=== PATIENT | female | born 1960 | race Caucasian/White ===

== ENCOUNTER → 2021-02-02 | Outpatient (CLI) | payer OTHER, SELFPAY ==
[2021-02-02 22:23] LABS: ALB/GLOB Ratio 1.1 RATIO (0.9-2.4); AST(SGOT) 30 U/L (15-37); Alanine Aminotransfer ALT/SGPT 35 U/L (13-56); Albumin, Serum 4.1 g/dL (3.2-5.0); Alkaline Phosphatase 39 U/L (45-117); Anion Gap 8 (5-15); BUN 26 mg/dL (7-18); Calcium,Total 9.3 mg/dL (8.5-10.1); Chloride 101 mmol/L (98-107); Cholesterol 230 mg/dL (200); Creatinine, Serum 1.04 mg/dL (0.55-1.02); EST Glomerular Filtration Rate 57 mL/min (>60); Est Glom Filt Rate - Afr Amer 69 mL/min (>60); Globulin 3.7 g/dL (2.2-4.2); Glucose 97 mg/dL (74-106); High Density Lipoprotein 107 mg/dL; Protein, Total 7.8 g/dL (6.4-8.2); Sodium Level 136 mmol/L (136-145); Triglycerides 149 mg/dL; Very Low Density Lipoprotein 30 mg/dL (5-40)
[2021-02-02 22:55] LABS: Absolute Lymphocyte Count 2.03 X10^3/uL (0.83-4.51); Absolute Neutrophil Count 3.5 X10^3/uL (2.0-7.7); Basophil# 0.03 X10^3/uL; Basophil% 0.5 % (0-1); Eosinophil# 0.11 X10^3/uL; Eosinophils% 1.7 % (0-5); Hematocrit 31.8 % (37-47); Hemoglobin 10.7 g/dL (12.0-15.0); Lymphocyte # 2.03 X10^3/ul (0.83-4.51); Lymphocyte % 31.6 % (19-41); Mean Corp Hgb Conc 33.6 g/dL (32-36); Mean Corpuscular Volume 103.9 fL (81-99); Mean Platelet Vol. 9.8 fl (6.2-12.0); Monocyte# 0.75 X10^3/uL; Monocyte% 11.7 % (0-10); NRBC Flagged by Analyzer 0 % (0-5); Neutrophil # 3.49 X10^3/uL (2.7-7.7); Neutrophil % 54.2 % (47-70); Platelet Count 234 K/mm3 (150-450); RBC Distribution Width CV 12.2 % (11.6-14.6); RBC Distribution Width SD 46.1 fl (35.1-43.9); Red Blood Count 3.06 M/mm3 (4.2-5.4); White Blood Count 6.4 K/mm3 (4.4-11.0)
== END | disposition home or self-care (01) ==
PROVIDERS: PCP Nurse Practitioner; Visit Provider Nurse Practitioner
DX: I10 Essential (primary) hypertension (principal)
CPT/HCPCS: 80053; 80061; 85025

== ENCOUNTER → 2022-02-01 | Outpatient (CLI) | payer BC, SELFPAY | END | disposition home or self-care (01) | PROVIDERS: PCP Nurse Practitioner; Visit Provider Nurse Practitioner | DX: I10 Essential (primary) hypertension (principal); E03.9 Hypothyroidism, unspecified ==

== ENCOUNTER → 2025-02-20 | Outpatient (CLI) | payer BC, SELFPAY ==
--- OUTSIDE RECORDS SUMMARY | 2025-02-20 21:51 | XMS RPT_ITS | CCD ---
Author Organization [facility] Care Team Providers Care Scout Leaser Name Role Phone Cliff, Yolanda Unavailable Unavailable Cliff, Yolanda Unavailable Unavailable Cliff, Yolanda Unavailable Unavailable Cliff, Yolanda Primary Care Provider Tee Aguiara L Primary Care Provider [phone] Adolph Dawkins Primary Care Provider [phone] AGUIAR, ALEKSANDRA L Primary Care Unavailable LUCIANO TORRES Attending Unavailable AGUIAR, ALKESANDRA L Primary Care Unavailable SHENBERGERSAMUEL L Attending Unavailable AGUIAR, ALEKSANDRA L Primary Care Unavailable SHENBERGER, SAMUEL L Attending Unavailable AGUIAR, ALEKSANDRA L Primary Care Unavailable LUCIANO TORRES Attending Unavailable WISAMBERGER, SAMUEL L Attending Unavailable AGUIAR, ALEKSANDRA L Primary Care Unavailable AGUIAR, ALEKSANDRA L Primary Care Unavailable LUCIANO TORRES Attending Unavailable AGUIAR, ALEKSANDRA L Primary Care Unavailable LUCIANO TORRES Attending Unavailable AGUIAR, ALEKSANDRA L Primary Care Unavailable LUCIANO TORRES Attending Unavailable LUCIANO TORRES Attending Unavailable AGUIAR, ALEKSANDRA L Primary Care Unavailable AGUIAR, ALEKSANDRA L Primary Care Unavailable LUCIANO TORRES Attending Unavailable AGUIAR, ALEKSANDRA L Primary Care Unavailable LUCIANO TORRES Attending Unavailable AGUIAR, ALEKSANDRA L Primary Care Unavailable LUCIANO TORRES Attending Unavailable LUCIANO TORRES Referring Unavailable LUCIANO TORRES Admitting Unavailable AGUIAR, ALEKSANDRA L Primary Care Unavailable Aguiar, Aleksandra L Primary Care Provider [phone] Aguair, Aleksandra Primary Care Provider Aguiar, Aleksandra Attending Unavailable Aguiar, Aleksandra Primary Care Unavailable Aguiar, Aleksandra Primary Care Provider [phone] AGUIAR, ALEKSANDRA L Primary Care Unavailable BRI BOLAÑOS Attending Unavailable Cosme CUTTING TORCH OPERATOR-Aleksandra SPAIN Primary Care Provide r Aleksandra Aguiar Primary Care Provider ALEKSANDRA AGUIAR Attending Unavailable ALEKSANDRA AGUIAR Referring Unavailable ALEKSANDRA AGUIAR Primary Care Unavailable Aleksandra Aguiar Primary Care Provider [phone] Allergies Allergy Classification Reported Allergen(s) Allergy Type Date of Onset Reaction(s) Facility Bee/Wasp/Ant Venom (1 source) bee venom Substance Allergy 08-09-2015 [facility] (2 sources) bee venom Propensity to adverse reactions to drug 08-09-2015 [facility] [place] Medications Current Medications Medication Drug Class(es) Dates Sig (Normalized) Sig (Original) acetaminophen 325 mg / HYDROcodone bitartrate 5 mg oral tablet (5 sources) Opioid Agonist Start: 01-07-2020 HYDROcodone-aceta minophen (NORCO) 5-325 mg per tablet amoxicillin 875 mg / clavulanate 125 mg oral tablet (2 sources) Penicillin-class Antibacterial Start: 09-15-2023 End: 09-25-2023 take 1 tablet by mouth twice daily amoxicillin-pot clavulanate (Augmentin) 875-125 mg tablet Indications: Acute otitis media, left Take 1 tablet by mouth 2 times a day for 10 days. Take with a meal. 20 tablet 09/15/2023 09/25/2023 Active Start: 11-25-2018 End: 12-20-2018 take 1 tablet by mouth twice daily Amoxicillin-Pot Clavulanate Discontinued 1 TABLET PO TWICE A DAY November 25, 2018 12:00am December 20, 2018 5:31pm aspirin 81 mg oral tablet (3 sources) Platelet Aggregation Inhibitor, Nonsteroidal Anti-inflammatory Drug take 1 tablet by mouth once daily aspirin 81 MG tablet Take 81 mg by mouth daily 0 Active ferrous sulfate 325 mg oral tablet (2 sources) Start: 020 take 1 tablet by mouth once daily Ferrous Sulfate (Ferosul) 325 mg (65 mg iron) tablet Active 325 MG PO DAILY December 24, 2019 12:00am levothyroxine sodium 0.112 mg oral tablet (20 sources) l-Thyroxine Start: 024 take 1 tablet by mouth once daily levothyroxine (Synthroid, Levoxyl) 112 mcg tablet Take 1 tablet (112 mcg) by mouth once daily. 06/26/2023 Active Start: 02-08-2007 End: 02-03-2021 take 1 tablet by mouth once daily Levothyroxine (Synthroid) 112 mcg tablet Discontinued 112 MCG PO DAILY January 23, 2020 3:15pm February 03, 2021 4:56pm Comment on above: Take one(1) tablet d aily. magnesium amino acid chelate 133 mg oral tablet (1 source) take 1 tablet by mouth twice daily magnesium, amino acid chelate, 133 mg tablet Take 1 tablet (133 mg) by mouth 2 times a day. Active Multiple Vitamin (MULTIVITAMINS PO) (3 sources) Multiple Vitamin (MULTIVITAMINS PO) Take by mouth 0 Active olmesartan medoxomil 20 mg oral tablet (12 sources) Angiotensin 2 Receptor Willa Start: 9 End: 2 take 20 mg by mouth once daily Olmesartan Active 20 MG PO DAILY February 01, 2022 6:44pm Vitamin B Complex (B Complex-Vitamin B12) tablet (1 source) Start: 0 take 1 tablet by mouth once daily Vitamin B Complex (B Complex-Vitamin B12) tablet Active 1 TABLET PO DAILY December 24, 2019 12:00am vitamin b12 1 mg oral tablet (1 source) Vitamin B12 take 1 tablet by mouth once daily cyanocobalamin (Vitamin B-12) 1,000 mcg tablet Take 1 tablet (1,000 mcg) by mouth once daily. Active Completed/Discontinued Medications Medication Drug Class(es) Dates Sig (Normalized) Sig (Original) [id number] actuat albuterol 0.09 mg/actuat metered dose inhaler (1 source) beta2-Adrenergic Agonist Start: 07-08-2018 End: 11-25-2018 take 1 puff(s) by inhalation every four hours Albuterol Sulfate (Proair Hfa) 90 mcg/actuation HFA aerosol inhaler Discontinued 2 PUFF INHALATION Q4H July 08, 2018 12:00am November 25, 2018 5:40pm anastrozole 1 mg oral tablet (14 sources) Aromatase Inhibitor Start: 02-08-2007 anastrozole (ARIMIDEX) 1 mg ORAL Tab azithromycin 250 mg oral tablet (1 source) Macrolide Antimicrobial Start: 07-08-2018 End: 07-13-2018 Azithromycin Discontinued 250 MG PO daily 6 5 July 08, 2018 12:00am July 13, 2018 12:11am 2 po qd for 1 day then 1 po qd for 4 days with food or after eating candesartan cilexetil 16 mg oral tablet (2 sources) Angiotensin 2 Receptor Willa Start: 07-08-2018 End: 09-05-2018 take 16 mg by mouth once daily Candesartan Discontinued 16 MG PO DAILY August 14, 2018 4:45pm September 05, 2018 12:36pm citalopram 20 mg oral tablet (14 sources) Serotonin Reuptake Inhibitor Start: 12-31-2017 End: 02-01-2022 take 20 mg by mouth once daily Citalopram Discontinued 20 MG PO DAILY February 02, 2021 3:58pm February 01, 2022 6:42pm escitalopram 10 mg oral tablet (14 sources) Serotonin Reuptake Inhibitor Start: 02-08-2007 escitalopram (LEXAPRO) 10 mg ORAL Tab folic acid 1 mg oral tablet (14 sources) Start: 02-08-2007 take 1 tablet by mouth once daily folic acid 1 mg ORAL Tab Take one (1) tablet daily. 0 02/08/2007 Active Comment on above: Take one (1) tablet daily. losartan potassium 100 mg oral tablet (4 sources) Angiotensin 2 Receptor Willa Start: 12-31-2017 End: 08-14-2018 take 100 mg by mouth once daily Losartan Discontinued 100 MG PO DAILY July 08, 2018 12:00am August 14, 2018 4:44pm multivitamin ORAL Tab (14 sources) Start: 02-08-2007 take 1 tablet by mouth once daily multivitamin ORAL Tab Take one(1) tablet daily. 0 02/08/2007 Active Comment on above: Take one(1) tablet d aily. omega-3 fatty acids(FISH OIL 500 MG CAP) (14 sources) Start: 02-11-2009 omega-3 fatty acids(FISH OIL 500 MG CAP) Take one(1) capsule daily. 0 02/11/2009 Active Comment on above: Take one(1) capsule daily. predniSONE 10 mg oral tablet (2 sources) Start: 11-25-2018 End: 11-30-2018 Prednisone Discontinued 20 MG PO TWICE A DAY 30 November 25, 2018 12:00am November 30, 2018 12:08am 2 po bid 4D,1 po bid for 4 D, 1 po qd for 4D 1/2 po qd for2 D Start: 07-08-2018 End: 07-12-2018 Prednisone Discontinued 20 M G PO TWICE A DAY 30 4 July 08, 2018 12:00am July 12, 2018 12:10am 2 po bid 4D,1 po bid for 4 D, 1 po qd for 4D 1/2 po qd for2 D Problems Active Problems Problem Classification Problem Date Documented Da te Episodic/Chronic Anxiety disorders (1 source) Anxiety; Translations: [Anxiety disorder, unspecified] Chronic Chronic obstructive pulmonary disease and bronchiectasis (1 source) Bronchitis; Translations: [Bronchitis, not specified as acute or chronic] Episodic Deficiency and other anemia (1 source) Macrocytic anemia; Translations: [Nutritional anemia, unspecified] Episodic Deficiency and other anemia (1 source) Anemia; Translations: [Anemia, unspecified] Episodic Essential hypertension (18 sources) Hypertensive disorder; Translations: [Essential (primary) hypertension] Onset: 12-28-2011 12-28-2011 Chronic Fever of unknown origin (1 source) Fever; Translations: [Fever, unspecified] Episodic Influenza (1 source) Influenza due to Influenza A virus; Translations: [Influenza due to other identified influenza virus with other respiratory manifestations] Episodic Malignant neoplasm without specification of site (16 sources) Malignant neoplastic disease; Translations: [Malignant (primary) neoplasm, unspecified] Onset: 04-09-2004 07-02-2017 Chronic Menopausal disorders (1 source) Menopausal flushing; Translations: [Menopausal and female climacteric states] Chronic Nutritional deficiencies (1 source) Undernutrition; Translations: [Unspecified protein-calorie malnutrition] Chronic Other connective tissue disease (4 sources) Tear of left rotator cuff; Translations: [Tear of left rotator cuff, unspecified tear extent, unspecified whether traumatic] Other ear and sense organ disorders (2 sources) Impacted cerumen, unspecified ear; Translations: [Impacted cerumen, unspecified ear] Onset: 09-15-2023 Episodic Other ear and sense organ disorders (1 source) Impacted cerumen; Translations: [Impacted cerumen, unspecified ear] 09-15-2023 Episodic Other lower respiratory disease (1 source) Wheezing; Translations: [Wheezing] Episodic Other non-traumatic joint disorders (20 sources) Stiffness of left shoulder; Translations: [Shoulder stiffness, left] Onset: 02-18-2020 02-18-2020 Other screening for suspected conditions (not mental disorders or infectious disease) (13 sources) Patient encounter status; Translations: [Encounter for screening mammogram for malignant neoplasm of breast] Onset: 12-31-2024 10-20-2022 Episodic Otitis media and related conditions (3 sources) Otitis media, unspecified, left ear; Translations: [Acute left otitis media] Onset: 09-15-2023 Episodic Paralysis (20 sources) Weakness of left arm; Translations: [Weakness of left arm] Onset: 02-18-2020 02-18-2020 Poisoning by nonmedicinal substances (1 source) Bee sting; Translations: [Toxic effect of venom of bees, accidental (unintentional), initial encounter] Episodic Residual codes; unclassified (3 sources) History of arthroscopic procedure on shoulder; Translations: [S/P arthroscopy of left shoulder] Episodic Skin and subcutaneous tissue infections (1 source) Cellulitis; Translations: [Cellulitis, unspecified] Episodic Thyroid disorders (17 sources) Hypothyroidism; Translations: [Hypothyroidism, unspecified] Onset: 12-28-2011 01-07-2015 Chronic Past or Other Problems Problem Classification Problem Date Documented Da te Episodic/Chronic Allergic reactions (14 sources) Solar degeneration; Translations: [Sun-damaged skin] Onset: 03-18-2009 03-24-2009 Episodic Other and unspecified benign neoplasm (14 sources) Melanocytic nevus of trunk; Translations: [Melanocytic nevus of trunk] Onset: 03-18-2009 03-18-2009 Episodic Other non-epithelial cancer of skin (14 sources) History of malignant neoplasm of skin; Translations: [Personal history of other malignant neoplasm of skin] Onset: 03-18-2009 03-18-2009 Episodic Other skin disorders (14 sources) Lentiginosis; Translations: [Lentigo] Onset: 03-18-2009 03-18-2009 Episodic Other skin disorders (14 sources) Other seborrheic keratosis; Translations: [Other seborrheic keratosis] Onset: 03-18-2009 03-18-2009 Episodic Other skin disorders (14 sources) Scar conditions and fibrosis of skin; Translations: [Scar condition and fibrosis of skin] Onset: 03-18-2009 03-18-2009 Episodic Other skin disorders (14 sources) Actinic keratosis; Translations: [Actinic keratosis] Onset: 03-18-2009 03-18-2009 Episodic Residual codes; unclassified (16 sources) Flushing; Translations: [Flushing] Onset: 12-31-2017 12-31-2017 Episodic Results Test Name Value Interpretation Reference Range Facility DBT Breast - bilateral scree surinder 12-31-2024 No mammographic evid ence of malignancy. ASSESSMENT: Category 2 Benign RECOMMENDATION: Routine screening mammogram in 1 year. Bilateral CANCER RISK ASSESSMENT: No lifetime breast cancer risk score was calculated due to the patient having had a previous breast cancer diagnosis per Tyrer-Cuzick version 8 risk model guidelines. Is the patient at elevated risk based on the HBOC criteria? No (Hereditary Breast and Ovarian Cancer) - If Yes, consider genetic counseling and testing with high risk follow up Is the patient at elevated risk based on the Freedman Syndrome criteria? No - If Yes, consider genetic counseling and testing with high risk follow up. Report Dictated on Electronically Signed By: Berna Henson DO Electronically Signed Date/Time: 12/31/2024 2:04 PM EDT [facility] 1960 [id number] Exam Date/Time: 12/31/2024 11:12 Procedure: BI MAMMOGRAM SCREENING TOMOSYNTHESIS BILATERAL Ordering Provider: AGUIAR DORA Reason For Exam: This exam was performed at [facility] at [address] [address] PATIENT CANCER HISTORY: Self Breast Cancer FAMILY CANCER HISTORY: No Family History of Cancer TECHNIQUE: 2D Bilateral CC and MLO 3D Bilateral CC and MLO Images reviewed with CAD Markings on images: BB's = Nipples, skin lesions Open atka = Palpable Line = Scar COMPARISON: 12/24/2023, 10/20/2022, 10/19/2021, 10/06/2020, 09/24/2019, 08/06/2018, 07/03/2017 TISSUE DENSITY: BIRADS B - There are scattered areas of fibroglandular density. FINDINGS: No suspicious masses, architectural distortions or suspiciously clustered microcalcifications. No skin thickening or nipple retraction. Right breast postoperative changes and left breast biopsy clips. No significant change from prior studies. [facility] Berna Henson DO - 12/31/2024 Patient Name: DANAY THOMPSON : 1960 Exam Date/Time: 12/31/2024 11:12 Procedure: BI MAMMOGRAM SCREENING TOMOSYNTHESIS BILATERAL Ordering Provider: AGUIAR DORA Reason For Exam: This exam was performed at [facility] at [place] [address] [facility] [address] PATIENT CANCER HISTORY: Self Breast Cancer FAMILY CANCER HISTORY: No Family History of Cancer TECHNIQUE: 2D Bilateral CC and MLO 3D Bilateral CC and MLO Images reviewed with CAD Markings on images: BB's = Nipples, skin lesions Open atka = Palpable Line = Scar COMPARISON: 12/24/2023, 10/20/2022, 10/19/2021, 10/06/2020, 09/24/2019, 08/06/2018, 07/03/2017 TISSUE DENSITY: BIRADS B - There are scattered areas of fibroglandular density. FINDINGS: No suspicious masses, architectural distortions or suspiciously clustered microcalcifications. No skin thickening or nipple retraction. Right breast postoperative changes and left breast biopsy clips. No significant change from prior studies. IMPRESSION: No mammographic evidence of malignancy. ASSESSMENT: Category 2 Benign RECOMMENDATION: Routine screening mammogram in 1 year. Bilateral CANCER RISK ASSESSMENT: No lifetime breast cancer risk score was calculated due to the patient having had a previous breast cancer diagnosis per Tyrer-Cuzick version 8 risk model guidelines. Is the patient at elevated risk based on the HBOC criteria? No (Hereditary Breast and Ovarian Cancer) - If Yes, consider genetic counseling and testing with high risk follow up Is the patient at elevated risk based on the Freedman Syndrome criteria? No - If Yes, consider genetic counseling and testing with high risk follow up. Report Dictated on Electronically Signed By: Berna Henson DO Electronically Signed Date/Time: 12/31/2024 2:04 PM EDT [facility] Radiology Study observation (narrative) [facility] DBT Breast - bilateral scree ningOrdered By: Berna Henson on 12-31-2024 [facility] Work Phone: CBC W Auto Differential pane l (Bld)on 02-28-2024 Basophils (Bld) [#/Vol] 52 10*3/uL [facility] Basophils/100 WBC (Bld) 0.8 % [facility] Eosinophils (Bld) [#/Vol] 91 10*3/uL [facility] Eosinophils/100 WBC (Bld) 1.4 % [facility] Erythrocyte distribution width (RBC) [Ratio] 12.2 % 11.0 - 15.0 % [facility] Hematocrit (Bld) [Volume fraction] 42.1 % 35.0 - 45.0 % [facility] Hemoglobin (Bld) [Mass/Vol] 14 g/dL 11.7 - 15.5 g/dL [facility] Interpretation and review of laboratory results Abnormal [facility] Lymphocytes (Bld) [#/Vol] 2152 10*3/uL [facility] Lymphocytes/100 WBC (Bld) 33.1 % [facility] MCH (RBC) [Entitic mass] 33.6 pg High 27.0 - 33.0 pg [facility] MCHC (RBC) [Mass/Vol] 33.3 g/dL 32.0 - 36.0 g/dL [facility] Comment on above: Specimen was prewarm ed to 37 degrees to obtain results. Cold agglutinin/cryoglobulin suspected. For adults, a slight decrease in the calculated MCHC value (in the range of 30 to 32 g/dL) is most likely not clinically significant; however, it should be interpreted with caution in correlation with other red cell parameters and the patient's clinical condition. MCV (RBC) [Entitic vol] 101 fL High 80.0 - 100.0 fL [facility] Monocytes (Bld) [#/Vol] 624 10*3/uL [facility] Monocytes/100 WBC (Bld) 9.6 % [facility] Neutrophils (Bld) [#/Vol] 3582 10*3/uL [facility] Neutrophils/100 WBC (Bld) 55.1 % [facility] Platelet mean volume (Bld) [Entitic vol] 9.2 fL 7.5 - 12.5 fL [facility] Platelets (Bld) [#/Vol] 202 10*3/uL [facility] RBC (Bld) [#/Vol] 4.17 10*6/uL [facility] WBC (Bld) [#/Vol] 6.5 10*3/uL [facility] TSHon 01-11-2024 TSH Qn 0.05 m[IU]/L Low [facility] Comment on above: Your request to have a duplicate copy faxed has been acknowledged. Queued to: [id number] TSH Qnon 01-11-2024 Interpretation and review of laboratory results Abnormal [facility] DBT Breast - bilateral scree ningon 12-24-2023 No mammographic evid ence of malignancy. ASSESSMENT: Category 2 Benign RECOMMENDATION: Routine screening mammogram in 1 year. Bilateral CANCER RISK ASSESSMENT: No lifetime breast cancer risk score was calculated due to the patient having had a previous breast cancer diagnosis. Is the patient at elevated risk based on the HBOC criteria? No (Hereditary Breast and Ovarian Cancer) - If Yes, consider genetic counseling and testing with high risk follow up Is the patient at elevated risk based on the Freedman Syndrome criteria? No - If Yes, consider genetic counseling and testing with high risk follow up. Report Dictated on Electronically Signed By: Kassy Parsons MD Electronically Signed Date/Time: 12/24/2023 2:18 PM [facility] Name: [facility]ABA [facility] 1960 [id number] Exam Date/Time: 12/24/2023 13:41 Procedure: BI MAMMOGRAM SCREENING TOMOSYNTHESIS BILATERAL Ordering Provider: AGUIAR DORA Reason For Exam: PATIENT CANCER HISTORY: Self Breast Cancer FAMILY CANCER HISTORY: No Family History of Cancer Image views: 2D Bilateral CC and MLO views were acquired. 3D Bilateral CC and MLO views were acquired. Images were reviewed with CAD. Markings on images: BB's = Nipples; skin lesions Open atka = Palpable Line = Scar COMPARISON: 10/20/2022 and 10/19/2021 TISSUE DENSITY: BIRADS B - There are scattered fibroglandular densities. FINDINGS: There are post surgical changes deep to a scar marker the right breast. No suspicious masses, architectural distortions or suspiciously clustered microcalcifications are identified. There is no evidence of skin thickening or nipple retraction. There are no significant changes when compared with prior studies. [facility] Kassy Parsons MD - 12/24/2023 Patient Name: DANA[facility] THOMPSON : 1960 [id number] Exam Date/Time: 12/24/2023 13:41 Procedure: BI MAMMOGRAM SCREENING TOMOSYNTHESIS BILATERAL Ordering Provider: AGUIAR DORA Reason For Exam: PATIENT CANCER HISTORY: Self Breast Cancer FAMILY CANCER HISTORY: No Family History of Cancer Image views: 2D Bilateral CC and MLO views were acquired. 3D Bilateral CC and MLO views were acquired. Images were reviewed with CAD. Markings on images: BB's = Nipples; skin lesions Open atka = Palpable Line = Scar COMPARISON: 10/20/2022 and 10/19/2021 TISSUE DENSITY: BIRADS B - There are scattered fibroglandular densities. FINDINGS: There are post surgical changes deep to a scar marker the right breast. No suspicious masses, architectural distortions or suspiciously clustered microcalcifications are identified. There is no evidence of skin thickening or nipple retraction. There are no significant changes when compared with prior studies. IMPRESSION: No mammographic evidence of malignancy. ASSESSMENT: Category 2 Benign RECOMMENDATION: Routine screening mammogram in 1 year. Bilateral CANCER RISK ASSESSMENT: No lifetime breast cancer risk score was calculated due to the patient having had a previous breast cancer diagnosis. Is the patient at elevated risk based on the HBOC criteria? No (Hereditary Breast and Ovarian Cancer) - If Yes, consider genetic counseling and testing with high risk follow up Is the patient at elevated risk based on the Freedman Syndrome criteria? No - If Yes, consider genetic counseling and testing with high risk follow up. Report Dictated on Electronically Signed By: Kassy Parsons MD Electronically Signed Date/Time: 12/24/2023 2:18 PM EDT [facility] Radiology Study observation (narrative) [facility] DBT Breast - bilateral scree ningOrdered By: Kassy Parsons on 12-24-2023 [facility] Phone: Ear Cerumen Removalon 2023 MUKUL Kwong CNP 09/17/2023 2:08 PM Ear Cerumen Removal Performed by: MILDRED Kwong Authorized by: MILDRED Kwong [facility] Work Phone: [facility] Work Phone: [facility] for tanner hnical call backon 11-02-2022 This is a technical repeat exam. The result from the previous exam will be addended with the full interpretation and will be distributed appropriately. IMAGING DBT Breast - bilateral abad Hillrdered By: Haily Devlin on 10-20-2022 Interpretation and review of laboratory results Abnormal [facility] Phone: [facility] Phone: DBT Breast - bilateral abad hillmartha 10-20-2022 Technical recall ASSESSMENT: Category 0 Incomplete: need additional imaging evaluation RECOMMENDATION: Technical Recall Bilateral Repeat right CC for posterior lateral tissue. Report Dictated on Electronically Signed By: Haily Devlin MD Electronically Signed Date/Time: 10/20/2022 3:20 PM [facility] Patient Name: [facility]Y KABA : 1960 [id number] Exam Date/Time: 10/20/2022 13:44 Procedure: BI MAMMOGRAM SCREENING TOMOSYNTHESIS BILATERAL Ordering Provider: AGUIAR DORA Reason For Exam: Screening mammogram Image views: 2D Bilateral CC and MLO views were acquired. 3D Bilateral CC and MLO views were acquired. Images were reviewed with CAD. Markings on images: BB's = Nipples; skin lesions Open atka = Palpable Line = Scar COMPARISON: 10/06/2020, 10/19/2021 TISSUE DENSITY: BIRADS B - There are scattered fibroglandular densities. FINDINGS: This is an incomplete interpretation of the screening mammogram performed on this patient. The study cannot be interpreted for technical reasons at this time. The patient will be requested to return for repeat imaging at no additional charge. [facility] Haily Devlin MD - 10/20/2022 Patient Name: DANAY THOMPSON : 1960 [id number] Exam Date/Time: 10/20/2022 13:44 Procedure: BI MAMMOGRAM SCREENING TOMOSYNTHESIS BILATERAL Ordering Provider: AGUIAR DORA Reason For Exam: Screening mammogram Image views: 2D Bilateral CC and MLO views were acquired. 3D Bilateral CC and MLO views were acquired. Images were reviewed with CAD. Markings on images: BB's = Nipples; skin lesions Open atka = Palpable Line = Scar COMPARISON: 10/06/2020, 10/19/2021 TISSUE DENSITY: BIRADS B - There are scattered fibroglandular densities. FINDINGS: This is an incomplete interpretation of the screening mammogram performed on this patient. The study cannot be interpreted for technical reasons at this time. The patient will be requested to return for repeat imaging at no additional charge. IMPRESSION: Technical recall ASSESSMENT: Category 0 Incomplete: need additional imaging evaluation RECOMMENDATION: Technical Recall Bilateral Repeat right CC for posterior lateral tissue. Report Dictated on Electronically Signed By: Haily Devlin MD Electronically Signed Date/Time: 10/20/2022 3:20 PM EDT [facility] Addendum by Erma Dasilva MD on 11/02/2022 1:00 PM EDT [facility] 1960 [id number] Exam Date/Time: 10/20/2022 13:44 Procedure: BI MAMMOGRAM SCREENING TOMOSYNTHESIS BILATERAL Ordering Provider: AGUIAR DORA Reason For Exam: Screening mammogram --------ADDENDUM #1 -------- ADDENDUM: This addendum is being provided to add interpretation of the original screening mammogram including the recommended repeat imaging. Image views: 2D Bilateral CC and MLO views were acquired. 3D Bilateral CC and MLO views were acquired. Images were reviewed with CAD. Markings on images: BB's = Nipples; skin lesions Open atka = Palpable Line = Scar COMPARISON: 2021; 2020; 2019 TISSUE DENSITY: BIRADS B - There are scattered fibroglandular densities. FINDINGS: There are post surgical changes deep to a scar marker the right breast. No suspicious masses, architectural distortions or suspiciously clustered microcalcifications are identified. There are no significant changes when compared with prior studies. IMPRESSION: No mammographic evidence of malignancy. ASSESSMENT: Category 2 Benign RECOMMENDATION: Routine screening mammogram in 1 year. Bilateral Report Dictated on Electronically Signed By: Erma Dasilva MD Electronically Signed Date/Time: 11/02/2022 1:00 PM EDT --------ORIGINAL REPORT -------- Image views: 2D Bilateral CC and MLO views were acquired. 3D Bilateral CC and MLO views were acquired. Images were reviewed with CAD. Markings on images: BB's = Nipples; skin lesions Open atka = Palpable Line = Scar COMPARISON: 10/06/2020, 10/19/2021 TISSUE DENSITY: BIRADS B - There are scattered fibroglandular densities. FINDINGS: This is an incomplete interpretation of the screening mammogram performed on this patient. The study cannot be interpreted for technical reasons at this time. The patient will be requested to return for repeat imaging at no additional charge. IMPRESSION: Technical recall ASSESSMENT: Category 0 Incomplete: need additional imaging evaluation RECOMMENDATION: Technical Recall Bilateral Repeat right CC for posterior lateral tissue. Report Dictated on Electronically Signed By: Haily Devlin MD Electronically Signed Date/Time: 10/20/2022 3:20 PM EDT Benign b Bilat Mamm 1 Yr [facility] Radiology Study observation (narrative) [facility] CBC W/Diff, Automatedon 10-2 -2021 Absolute Neut Normal 2.0-7.7 [facility] Comment on above: Result Comment: PER MARIELOS TO CANCEL ALL TESTS, MYRIAM QURESHI CALLED FOR ALEKSANDRA AGUIAR. Performed By: #### L 500.3560, L500.4100, L100.0100 #### [facility] [address] [place], [address] HCT Normal 37-47 [facility] Comment on above: Result Comment: PER AIRPORT OPERATIONS CREW MEMBER.DRICHARDSON TO CANCEL ALL TESTS, MYRIAM QURESHI CALLED FOR ALEKSANDRA AGUIAR. Performed By: #### L 500.4050, L500.4100, L100.0100 #### [facility] [address] [place], [address] HGB Normal 12.0-15.0 [facility] Comment on above: Result Comment: PER AIRPORT OPERATIONS CREW MEMBER.DRICHARDSON TO CANCEL ALL TESTS, MYRIAM QURESHI CALLED FOR ALEKSANDRA AGUIAR. Performed By: #### L 500.4050, L500.4100, L100.0100 #### [facility] [address] [place], [address] MCH Normal 27.0-32.0 [facility] Comment on above: Result Comment: PER AIRPORT OPERATIONS CREW MEMBER.DRICHARDSON TO CANCEL ALL TESTS, MYRIAM QURESHI CALLED FOR ALEKSANDRA AGUIAR. Performed By: #### L 500.4050, L500.4100, L100.0100 #### [facility] [address] [place], [address] MCHC Normal 32-36 [facility] Comment on above: Result Comment: PER AIRPORT OPERATIONS CREW MEMBER.DRICHARDSON TO CANCEL ALL TESTS, MYRIAM QURESHI CALLED FOR ALEKSANDRA AGUIAR. Performed By: #### L 500.4050, L500.4100, L100.0100 #### [facility] [address] [place], [address] MCV Normal 81-99 [facility] Comment on above: Result Comment: PER AIRPORT OPERATIONS CREW MEMBER.DRICHARDSON TO CANCEL ALL TESTS, MYRIAM QURESHI CALLED FOR ALEKSANDRA AGUIAR. Performed By: #### L 500.4050, L500.4100, L100.0100 #### [facility] [address] [place], [address] NEUT% Normal 47-70 [facility] Comment on above: Result Comment: PER AIRPORT OPERATIONS CREW MEMBER.DRICHARDSON TO CANCEL ALL TESTS, MYRIAM QURESHI CALLED FOR ALEKSANDRA AGUIAR. Performed By: #### L 500.4050, L500.4100, L100.0100 #### [facility] [address] [place], [address] PLT Normal 150-450 [facility] Comment on above: Result Comment: PER AIRPORT OPERATIONS CREW MEMBER.DRICHARDSON TO CANCEL ALL TESTS, MYRIAM QURESHI CALLED FOR ALEKSANDRA AGUIAR. Performed By: #### L 500.4050, L500.4100, L100.0100 #### [facility] [address] [place], [address] RBC Normal 4.2-5.4 [facility] Comment on above: Result Comment: PER AIRPORT OPERATIONS CREW MEMBER.DRICHARDSON TO CANCEL ALL TESTS, MYRIAM QURESHI CALLED FOR ALEKSANDRA AGUIAR. Performed By: #### L 500.4050, L500.4100, L100.0100 #### [facility] [address] [place], [address] RDW CV Normal 11.6-14.6 [facility] Comment on above: Result Comment: PER AIRPORT OPERATIONS CREW MEMBER.DRICHARDSON TO CANCEL ALL TESTS, MYRIAM QURESHI CALLED FOR ALEKSANDRA AGUIAR. Performed By: #### L 500.4050, L500.4100, L100.0100 #### [facility] [address] [place], [address] RDW SD Normal 35.1-43.9 [facility] Comment on above: Result Comment: PER AIRPORT OPERATIONS CREW MEMBER.DRICHARDSON TO CANCEL ALL TESTS, MYRIAM QURESHI CALLED FOR ALEKSANDRA AGUIAR. Performed By: #### L 500.4050, L500.4100, L100.0100 #### [facility] [address] [place], [address] WBC Normal 4.4-11.0 [facility] Comment on above: Result Comment: PER AIRPORT OPERATIONS CREW MEMBER.DRICHARDSON TO CANCEL ALL TESTS, MYRIAM QURESHI CALLED FOR ALEKSANDRA AGUIAR. Performed By: #### L 500.4050, L500.4100, L100.0100 #### [facility] [address] [place], [address] Comprehensive Metabolic Prof ilon 02-01-2022 ALB Normal 3.2-5.0 [facility] Comment on above: Result Comment: PER AIRPORT OPERATIONS CREW MEMBER.DRICHARDSON TO CANCEL ALL TESTS, MYRIAM QURESHI CALLED FOR ALEKSANDRA AGUIAR. Performed By: #### L 500.4050, L500.4100, L100.0100 #### [facility] [address] [place], [address] ALK P Normal 45-117 [facility] Comment on above: Result Comment: PER AIRPORT OPERATIONS CREW MEMBER.DRICHARDSON TO CANCEL ALL TESTS, MYRIAM QURESHI CALLED FOR ALEKSANDRA AGUIAR. Performed By: #### L 500.4050, L500.4100, L100.0100 #### [facility] [address] [place], [address] ALT Normal 13-56 [facility] Comment on above: Result Comment: PER AIRPORT OPERATIONS CREW MEMBER.DRICHARDSON TO CANCEL ALL TESTS, MYRIAM QURESHI CALLED FOR ALEKSANDRA AGUIAR. Performed By: #### L 500.4050, L500.4100, L100.0100 #### [facility] [address] [place], [address] AST Normal 15-37 [facility] Comment on above: Result Comment: PER AIRPORT OPERATIONS CREW MEMBER.DRICHARDSON TO CANCEL ALL TESTS, MYRIAM QURESHI CALLED FOR ALEKSANDRA AGUIAR. Performed By: #### L 500.4050, L500.4100, L100.0100 #### [facility] [address] [place], [address] BUN Normal 7-18 [facility] Comment on above: Result Comment: PER AIRPORT OPERATIONS CREW MEMBER.DRICHARDSON TO CANCEL ALL TESTS, MYRIAM QURESHI CALLED FOR ALEKSANDRA AGUIAR. Performed By: #### L 500.4050, L500.4100, L100.0100 #### [facility] [address] [place], [address] BUN/CRE Normal 10-20 [facility] Comment on above: Result Comment: PER AIRPORT OPERATIONS CREW MEMBER.DRICHARDSON TO CANCEL ALL TESTS, MYRIAM QURESHI CALLED FOR ALEKSANDRA AGUIAR. Performed By: #### L 500.4050, L500.4100, L100.0100 #### [facility] [address] [place], [address] CA,Total Normal 8.5-10.1 [facility] Comment on above: Result Comment: PER AIRPORT OPERATIONS CREW MEMBER.DRICHARDSON TO CANCEL ALL TESTS, MYRIAM QURESHI CALLED FOR ALEKSANDRA COSME. Performed By: #### L 500.4050, L500.4100, L100.0100 #### [facility] [address] [place], [address] CL Normal 98-107 [facility] Comment on above: Result Comment: PER AIRPORT OPERATIONS CREW MEMBER.DRICHARDSON TO CANCEL ALL TESTS, MYRIAM QURESHI CALLED FOR ALEKSANDRA AGUIAR. Performed By: #### L 500.4050, L500.4100, L100.0100 #### [facility] [address] [place], [address] CO2 Normal 21.0-32.0 [facility] Comment on above: Result Comment: PER AIRPORT OPERATIONS CREW MEMBER.DRICHARDSON TO CANCEL ALL TESTS, MYRIAM QURESHI CALLED FOR ALEKSANDRA AGUIAR. Performed By: #### L 500.4050, L500.4100, L100.0100 #### [facility] [address] [place], [address] CREAT,SERUM Normal 0.55-1.02 [facility] Comment on above: Result Comment: PER AIRPORT OPERATIONS CREW MEMBER.DRICHARDSON TO CANCEL ALL TESTS, MYRIAM QURESHI CALLED FOR ALEKSANDRA AGUIAR. Performed By: #### L 500.4050, L500.4100, L100.0100 #### [facility] [address] [place], [address] EST GFR Normal >60 [facility] Comment on above: Result Comment: PER AIRPORT OPERATIONS CREW MEMBER.DRICHARDSON TO CANCEL ALL TESTS, MYRIAM QURESHI CALLED FOR ALEKSANDRA AGUIAR. Performed By: #### L 500.4050, L500.4100, L100.0100 #### [facility] [address] [place], [address] EST GFR - AA Normal >60 [facility] Comment on above: Result Comment: PER AIRPORT OPERATIONS CREW MEMBER.DRICHARDSON TO CANCEL ALL TESTS, MYRIAM QURESHI CALLED FOR ALEKSANDRA AGUIAR. Performed By: #### L 500.4050, L500.4100, L100.0100 #### [facility] [address] [place], [address] GAP Normal 5-15 [facility] Comment on above: Result Comment: PER AIRPORT OPERATIONS CREW MEMBER.DRICHARDSON TO CANCEL ALL TESTS, MYRIAM QURESHI CALLED FOR ALEKSANDRA AGUIAR. Performed By: #### L 500.4050, L500.4100, L100.0100 #### [facility] [address] [place], [address] GLU Normal 74-106 [facility] Comment on above: Result Comment: PER AIRPORT OPERATIONS CREW MEMBER.DRICHARDSON TO CANCEL ALL TESTS, MYRIAM QURESHI CALLED FOR ALEKSANDRA AGUIAR. Performed By: #### L 500.4050, L500.4100, L100.0100 #### [facility] [address] [place], [address] Potassium Normal 3.5-5.1 [facility] Comment on above: Result Comment: PER AIRPORT OPERATIONS CREW MEMBER.DRICHARDSON TO CANCEL ALL TESTS, MYRIAM QURESHI CALLED FOR ALEKSANDRA AGUIAR. Performed By: #### L 500.4050, L500.4100, L100.0100 #### [facility] [address] [place], [address] T BILI Normal 0.20-1.00 [facility] Comment on above: Result Comment: PER AIRPORT OPERATIONS CREW MEMBER.DRICHARDSON TO CANCEL ALL TESTS, MYRIAM QURESHI CALLED FOR ALEKSANDRA AGUIAR. Performed By: #### L 500.4050, L500.4100, L100.0100 #### [facility] [address] [place], [address] T PROT Normal 6.4-8.2 [facility] Comment on above: Result Comment: PER AIRPORT OPERATIONS CREW MEMBER.DRICHARDSON TO CANCEL ALL TESTS, MYRIAM QURESHI CALLED FOR ALEKSANDRA AGUIAR. Performed By: #### L 500.4050, L500.4100, L100.0100 #### [facility] [address] [place], [address] Comprehensive Metabolic Profil Normal 136-145 [facility] Comment on above: Result Comment: PER AIRPORT OPERATIONS CREW MEMBER.DRICHARDSON TO CANCEL ALL TESTS, MYRIAM QURESHI CALLED FOR ALEKSANDRA AGUIAR. Performed By: #### L 500.4050, L500.4100, L100.0100 #### [facility] [address] [place], [address] Lipid Profileon 02-01-2022 CHOL Normal 200 [facility] Comment on above: Result Comment: PER AIRPORT OPERATIONS CREW MEMBER.DRICHARDSON TO CANCEL ALL TESTS, MYRIAM QURESHI CALLED FOR ALEKSANDRA AGUIAR. Performed By: #### L 500.4050, L500.4100, L100.0100 #### [facility] [address] [place], [address] HDL Normal [facility] Comment on above: Result Comment: PER AIRPORT OPERATIONS CREW MEMBER.DRICHARDSON TO CANCEL ALL TESTS, MYRIAM QURESHI CALLED FOR ALEKSANDRA AGUIAR. The drugs N-Acetylcysteine and Metamizole may falsely depress this assay. Performed By: #### L 500.4050, L500.4100, L100.0100 #### [facility] [address] [place], [address] LDL Normal 0-130 [facility] Comment on above: Result Comment: PER AIRPORT OPERATIONS CREW MEMBER.DRICHARDSON TO CANCEL ALL TESTS, MYRIAM QURESHI CALLED FOR ALEKSANDRA AGUIAR. Performed By: #### L 500.4050, L500.4100, L100.0100 #### [facility] [address] [place], [address] TRIG Normal [facility] Comment on above: Result Comment: PER AIRPORT OPERATIONS CREW MEMBER.DRICHARDSON TO CANCEL ALL TESTS, MYRIAM QURESHI CALLED FOR ALEKSANDRA AGUIAR. The drugs N-Acetylcysteine and Metamizole may falsely depress this assay. Performed By: #### L 500.4050, L500.4100, L100.0100 #### [facility] [address] [place], [address] VLDL Normal 5-40 [facility] Comment on above: Result Comment: PER AIRPORT OPERATIONS CREW MEMBER.DRICHARDSON TO CANCEL ALL TESTS, MYRIAM QURESHI CALLED FOR ALEKSANDRA AGUIAR. Performed By: #### L 500.4050, L500.4100, L100.0100 #### [facility] [address] [place], [address] MG Breast Tomosynthesis Scr Blon 10-19-2021 MG Breast Tomosynthesis Scr Bl Patient Name: DANAY THOMPSON Mammography ACCESSION EXAM DATE/TIME PROCEDURE ORDERING PROVIDER [id number] 10/19/2021 16:00 EDT MG Breast Tomosynthesis JUDIT AGUIAR DORA L BI Scr CPT code 08359 [id number] Reason For Exam (MG Breast Tomosynthesis BI Scr) screening Report TIME SINCE LAST MAMMOGRAM: Last mammogram was performed 1 year ago. REASON FOR EXAM: screening, asymptomatic. PROCEDURE: MG BREAST TOMOSYNTHESIS BL SCR: OCTOBER 19, 2021 - 2D/3D Procedure 3D views: Bilateral MLO and CC view(s) were taken. 2D views: Bilateral MLO and CC view(s) were taken. XCCL view(s) were taken of the right breast. Prior study comparison: October 06, 2020, bilateral MG breast tomosynthesis bl scr performed at [facility]. September 24, 2019, bilateral MG breast tomosynthesis bl scr performed at [facility]. August 06, 2018, bilateral MG breast tomosynthesis bl scr performed at [facility]. TISSUE DENSITY: BIRADS B - There are scattered fibroglandular densities. . FINDINGS: No new suspicious masses, architectural distortions or suspiciously clustered microcalcifications are identified. There are post surgical changes deep to a scar marker in the right breast. There are no significant changes when compared with prior studies. Markings on images: BB's = Nipples; skin lesions Open atka = Palpable Line = Scar 2D digital mammography and tomosynthesis imaging were performed and reviewed with CAD. ASSESSMENT: Category 2 Benign RECOMMENDATION: Routine screening mammogram of both breasts in 1 year. . Mammography Report Report Dictated on Final Signed Date and Time: 10/20/2021 9:52 am Signed by: MD DELFINO [facility] -------- DANAY THOMPSON ([id number]) 1960 F Date Time Provider Department 05/13/21 SAMUEL KHAN During your visit today, we recorded the following information about you: Samuel Khan APRN.FINANCIAL SERVICES DIRECTOR 05/13/2021 3:52 PM Signed Please call patient and inform her of colonoscopy and EGD results. EGD findings of small hiatal hernia Colonoscopy findings normal colon - repeat colonoscopy in 10 years for colon cancer screening I would recommend a small bowel capsule to further evaluate the small bowel. Please have patient follow up in clinic Thanks Samuel Khan APRN.JUDIT Mary Efraín SAINI 05/16/2021 11:21 AM Signed LEFT MESSAGE FOR PATIENT TO CALL OFFICE. Meena De Anda Amando 05/18/2021 11:25 AM Signed Patient left message, returning your call Meena Hernandez Efraín SAINI 05/19/2021 11:31 AM Signed PATIENT NOTIFIED OF SAME. She will think about proceeding with the small bowel capsule and will call back if she decides to proceed with this. Allergies As of Date: 05/13/2021 Noted Allergy Reaction VENOM-HONEY BEE 08/09/2015 7 - Swelling Date Reviewed: 05/05/2021 Reviewed by: Shakila Hogan RN - Fully Assessed Reason for Visit: Results [95] Prescriptions as of 05/19/2021 - olmesartan (BENICAR) 20 mg tablet - ferrous sulfate 325 mg (65 mg iron) tablet Take by mouth. - polyethylene glycol 3350 (MIRALAX, GLYCOLAX) 17 gram/dose powder Use as directed for Miralax / Gatorade Bowel Prep Kit - Bisacodyl (DULCOLAX) 5 mg tab Use as directed for Miralax / Gatorade Bowel Prep Kit - omeprazole (PRILOSEC) 20 mg capsule Take 2 capsules by mouth once daily. - multivitamin ORAL Tab Take one(1) tablet daily. - folic acid 1 mg ORAL Tab Take one (1) tablet daily. - escitalopram (LEXAPRO) 10 mg ORAL Tab Problem List As Of Date 05/13/2021 Noted Resolved Actinic Keratosis [L57.0] 03/18/2009 Actinic Damage///Sun-Damaged Skin [L57.8] 03/18/2009 Lentigo [L81.4] 03/18/2009 Melanocytic Nevus of Trunk [D22.5] 03/18/2009 Other Seborrheic Keratosis [L82.1] 03/18/2009 Scar Condition and Fibrosis of Skin [L90.5] 03/18/2009 H/O BCC////of Other Malignant Neoplasm of Sk [Z*03/18/2009 Shoulder stiffness, left [M25.612] 02/18/2020 05/25/2020 Weakness of left arm [R29.898] 02/18/2020 05/25/2020 Encounter Status:Closed by MARY GANNON LPN on 05/19/21 Normal [facility] ANES POSTPROC EVALon 022 ANES POSTPROC EVAL HNO ID: [id number] Author: Madelin Menchaca APRN.BULK SEALER Service: ? Author Type: Nurse Feather Drying Machine Operator Type: Anesthesia Postprocedure Evaluation Filed: 05/05/2021 8:40 AM Note Text: POST ANESTHESIA EVALUATION NOTE : 1960 Procedure Summary Date: 05/05/21 Room / Location: Ambulatory Surgery Anesthesia Start: 08 Anesthesia Stop: 838 Procedure: COLONOSCOPY DIAGNOSTIC Diagnosis: Black stool Scheduled Providers: Hang Madrid MD Responsible Provider: Madelin Menchaca APRN.CRNA Anesthesia Type: MAC ASA Status: 2 Anesthesia Type: MAC Last Vitals Vitals Value Taken Time BP 94/57 05/05/21 0839 Temp 97.5 05/05/21 0839 Pulse 73 05/05/21 0839 Resp 16 05/05/21 0839 SpO2 98 05/05/21 0839 Post Anesthesia Patient Status Patient Evaluation: PACU. PACU/ICU Patient Condition: stable. Anticipated Disposition: phase 2 then home. Neurological Status: sleepy but arousable. Pulmonary Status: breathing comfortably on room air Airway Control: returned to baseline unsupported. Cardiovascular Status: stable. Pain Management: clinically adequate - multimodal analgesia pain management approach Postoperative Hydration: acceptable. Intraoperative Events: no significant anesthesia events Post Operative Nausea/Vomiting Status: no significant post operative nausea or vomiting Anesthetic Observations: Recommendation: continue current plan of care. Anesthesia Observations No Documentation SIGNATURE: Madelin Menchaca APRN.BULK SEALER PATIENT NAME: Danay Thompson DATE: May 05, 2021 TIME: 8:39 AM CSN: [id number] Normal [facility] ANES PRE-OPon 05-05-2021 ANES PRE-OP HNO ID: [id number] Author: Madelin Menchaca APRN.BULK SEALER Service: ? Author Type: Nurse Feather Drying Machine Operator Type: Anesthesia Preprocedure Evaluation Filed: 05/05/2021 8:10 AM Note Text: ANESTHESIOLOGY DAY OF SURGERY NOTE : 1960 Procedure Information Date/Time: 05/05/21 0800 Scheduled providers: Hang Madrid MD Procedure: COLONOSCOPY DIAGNOSTIC Location: Ambulatory Surgery Estimated body mass index is 23 kg/m? as calculated from the following: Height as of 02/25/21: 162.6 cm (5' 4). Weight as of 02/25/21: 60.8 kg (134 lb). Most recent hematocrit and potassium results: Hematocrit 29.2 02/25/2021 Potassium 5.1 02/25/2021 Relevant Problems NEURO-PSYCH (+) H/O BCC////of Other Malignant Neoplasm of Sk I - PHYSICAL EVALUATION AIRWAY Patient intubated: No. Tracheostomy tube not present Mallampati: II. TM distance: >3 FB. Neck ROM: full ROM without neurological symptoms. Mouth opening: adequate. Short neck: no. Thick neck: no DENTAL Dental findings: teeth intact. Additional exam findings: no II - ANESTHESIA PLAN ASA Score: 2 Anesthetic Plan: MAC The patient is not a current smoker. NPO Status: adequate Monitoring plan: standard ASA. Postoperative analgesic plan: parenteral or oral opioids and multimodal analgesia. Anesthetic Risks, Benefits, Alternatives, Personnel Discussed. Consent obtained from: patient.Patient / Surrogate agrees to blood products: blood products not planned Significant changes in the patient condition since the History and Physical, not otherwise documented in primary service progress note: no. Vitals Value Taken Time BP 145/81 05/05/21 0742 Pulse 105 05/05/21 0742 Resp 16 05/05/21 0742 Temp 37.2 ?C (98.9 ?F) 05/05/21 0742 SpO2 100 % 05/05/21 0742 Outpatient Medications as of 05/05/2021 Medication Sig - olmesartan (BENICAR) 20 mg tablet - ferrous sulfate 325 mg (65 mg iron) tablet Take by mouth. - polyethylene glycol 3350 (MIRALAX, GLYCOLAX) 17 gram/dose powder Use as directed for Miralax / Gatorade Bowel Prep Kit - Bisacodyl (DULCOLAX) 5 mg tab Use as directed for Miralax / Gatorade Bowel Prep Kit - omeprazole (PRILOSEC) 20 mg capsule Take 2 capsules by mouth once daily. - multivitamin ORAL Tab Take one(1) tablet daily. - folic acid 1 mg ORAL Tab Take one (1) tablet daily. - escitalopram (LEXAPRO) 10 mg ORAL Tab Facility-Administered Medications as of 05/05/2021 Medication Dose Route Frequency - lactated ringers iv infusion 30 mL/hr INTRAVENOUS CONTINUOUS I have interviewed and examined the patient. I have reviewed the medical record and/or the pre-anesthesia evaluation, pertinent labs, and test results. This contains updated information obtained within 48 hours of Surgery/Procedure. SIGNATURE: Madelin Menchaca APRN.BULK SEALER PATIENT NAME: Danay Thompson DATE: May 05, 2021 TIME: 8:10 AM CSN: [id number] Normal [facility] ANES PREOPon 05-05-2021 ANES PREOP HNO ID: [id number] Author: Hang Madrid MD Service: Gastroenterology Author Type: Physician Type: Anesthesia PreOp Filed: 05/05/2021 8:08 AM Note Text: HISTORY AND PHYSICAL Danay Thompson, 60 year old female Current history and physical on file: No Is a new History and Physical required for today's visit? Yes Indication for procedure: Iron deficiency anemia PROCEDURE(S) SCHEDULED FOR: EGD (Esophagogastroduodenosc opy) with or without biopsies, removal of polyps or lesions, dilation ( any means), treatment of bleeding ( any means), Barrx treatment of Mohit's Esophagus, image tube placement or cryo therapy treatment based on clinical findings. Colonoscopy with biopsy or polypectomy BASELINE BEHAVIOR: Calm BASELINE ORIENTATION: A AND O x3 All medications and allergies reviewed: Yes Skin Assessment: Warm dry mucus membranes pink Airway/Respiratory Assessment: Airway: visualization of the uvula- Yes Mouth: opening greater than 2 fingerbreadths- Yes Neck: full range of motion- Yes Breath sounds clear/equal- Yes Cardiac Assessment: Regular rate and rhythm without murmur Abdominal Assessment: Abdomen soft, non-tender, no masses or organomegaly. Sedation Plan: Moderate Additional Comments: None Hang Madrid MD Normal [facility] SURGICAL PATHOLOGYon 022 SURGICAL PATHOLOGY Specimen originated from [facility] Specimen #: [id number] Submitting Physician: HANG MADRID __ FINAL DIAGNOSIS Duodenum, biopsy: Duodenal mucosa with no significant pathologic abnormality. Cameron Arreguin MD (Electronic Signature) SPECIMEN SUBMITTED A: DUODENUM, BIOPSY CLINICAL DATA ANEMIA GROSS DESCRIPTION A. Received in formalin are two pieces of moreno, soft tissue aggregating to 0.6 x 0.3 x 0.2 cm. Totally submitted in one cassette. Gross examination performed at [facility], [address] [place] [address] J 05/06/2021 12:59:54 AM Date of Report: 05/06/2021 Date of Procedure: 05/05/2021 Date of Receipt: 05/05/2021 Submitted by: HANG MADRID Location: [facility] Diagnostic interpretation performed at [place] [address]. CLIA Number: [id number] Normal [facility] Fecal Occult Bld Tston 04-19 Immuno FOB Negative Normal Negative [facility] Comment on above: Result Comment: This test was developed and its performance characteristics determined by [facility]'s [facility] ([facility]). It has not been cleared or approved by the FDA. [facility] is regulated under CLIA as qualified to perform high complexity testing. This test is used for clinical purposes. It should not be regarded as investigational or for research. Performed By: #### I FOBT #### [place] [address] Amber 03-02-2021 JUDITN Telephone ([facility]) -------- DANAY THOMPSON ([id number]) 1960 F Date Time Provider Department 03/02/21 SAMUEL KHAN During your visit today, we recorded the following information about you: Mary Gannon LPN 03/02/2021 9:10 AM Signed ----- Message from Samuel Khan APRN.FINANCIAL SERVICES DIRECTOR sent at 03/01/2021 2:30 PM EST ----- Please call patient let her know her labs still showing anemia. Your sodium is slightly low and and BUN is slightly elevated which means dehydration. Please make sure you are drinking plenty of fluids. Still waiting on the the ifobt Thanks Samuel Khan APRN.FINANCIAL SERVICES DIRECTOR Mary Gannon LPN 03/02/2021 9:12 AM Signed PATIENT NOTIFIED OF SAME. Allergies As of Date: 03/02/2021 Noted Allergy Reaction VENOM-HONEY BEE 08/09/2015 7 - Swelling Date Reviewed: 02/25/2021 Reviewed by: Beryl Garrison MA - Fully Assessed Reason for Visit: Results [95] Prescriptions as of 03/02/2021 - olmesartan (BENICAR) 20 mg tablet - ferrous sulfate 325 mg (65 mg iron) tablet Take by mouth. - polyethylene glycol 3350 (MIRALAX, GLYCOLAX) 17 gram/dose powder Use as directed for Miralax / Gatorade Bowel Prep Kit - Bisacodyl (DULCOLAX) 5 mg tab Use as directed for Miralax / Gatorade Bowel Prep Kit - omeprazole (PRILOSEC) 20 mg capsule Take 2 capsules by mouth once daily. - multivitamin ORAL Tab Take one(1) tablet daily. - folic acid 1 mg ORAL Tab Take one (1) tablet daily. - escitalopram (LEXAPRO) 10 mg ORAL Tab Problem List As Of Date 03/02/2021 Noted Resolved Actinic Keratosis [L57.0] 03/18/2009 Actinic Damage///Sun-Damaged Skin [L57.8] 03/18/2009 Lentigo [L81.4] 03/18/2009 Melanocytic Nevus of Trunk [D22.5] 03/18/2009 Other Seborrheic Keratosis [L82.1] 03/18/2009 Scar Condition and Fibrosis of Skin [L90.5] 03/18/2009 H/O BCC////of Other Malignant Neoplasm of Sk [Z*03/18/2009 Shoulder stiffness, left [M25.612] 02/18/2020 05/25/2020 Weakness of left arm [R29.898] 02/18/2020 05/25/2020 Encounter Status:Closed by MARY GANNON LPN on 03/02/21 Normal [facility] CBC and Differentialon 02-25 Abs Baso 0.04 k/uL Normal <0.11 [facility] Abs Bartholomew 0.63 k/uL Normal <0.87 [facility] Abs Neut 3.92 k/uL Normal 1.45-7.50 [facility] Absolute nRBC <0.01 Normal <0.01 [facility] Basophils/100 WBC (Bld) 0.6 % Normal [facility] DTYPE Auto Diff Normal [facility] Eosinophils (Bld) [#/Vol] 0.14 10*3/uL Normal <0.46 [facility] Eosinophils/100 WBC (Bld) 2.1 % Normal [facility] Erythrocyte distribution width (RBC) [Ratio] 12.0 % Normal 11.5-15.0 [facility] Hematocrit (Bld) [Volume fraction] 29.2 % Low 36.0-46.0 [facility] Hemoglobin (Bld) [Mass/Vol] 10.3 g/dL Low 11.5-15.5 [facility] Lymphocytes (Bld) [#/Vol] 1.78 10*3/uL Normal 1.00-4.00 [facility] Lymphocytes/100 WBC (Bld) 27.3 % Normal [facility] MCH 35.6 pG High 26.0-34.0 [facility] MCHC (RBC) [Mass/Vol] 35.3 g/dL Normal 30.5-36.0 [facility] MCV (RBC) [Entitic vol] 101.0 fL High 80.0-100.0 [facility] Monocytes/100 WBC (Bld) 9.6 % Normal [facility] Neutrophils/100 WBC (Bld) 60.4 % Normal [facility] NRBCs 0.0 /100 WBC Normal 0 [facility] Platelet mean volume (Bld) [Entitic vol] 8.5 fL Low 9.0-12.7 [facility] Platelets (Bld) [#/Vol] 198 10*3/uL Normal 150-400 [facility] RBC (Bld) [#/Vol] 2.89 10*6/uL Low 3.90-5.20 [facility] WBC (Bld) [#/Vol] 6.53 10*3/uL Normal 3.70-11.00 [facility] CNCOon 02-25-2021 CNCO Letter Text Normal [facility] CNOVon 02-25-2021 CNNIKOLE Office Visit ([facility] ) -------- DANAY THOMPSON ([id number]) 1960 F Date Time Provider Department 02/25/21 11:00 AM SAMUEL KHAN During your visit today, we recorded the following information about you: Pulse Blood pressure Weight Height 97/minute 106/70 60.8 kg 1.626 m Samuel Khan APRN.CNP 02/25/2021 12:25 PM Signed CHIEF COMPLAINT: Patient presents with: Abdominal Pain: PCP wants EGD eval This consult was requested by Self for an opinion regarding abdominal pain. My final recommendations will be communicated to the requesting health care provider by way of the shared medical record for internal providers or letter via the [employer] for external providers. HPI: Danay Donna is a 60 year old female with a past medical history hypothyroid, rotator cuff. Who presents for Abdominal Pain (PCP wants EGD eval) Reports 6 months started having abdominal pain intermittently will have a sharp/dull pain lasting a few seconds and then goes away. This happens few times during the week. Heartburn - will have 4 times a month - will take TUMs which helps. She reports this happens after eating and laying down. The patient reports change in bowel habits,denies BRBPR. Having a bowel movement once daily which are solid. She reports watery diarrhea twice a month and stool is very dark. Reports she was eating blueberries in the morning and would have black stool intermittently but stopped eating blueberries and still having black stools. Last 2 blood draws reports anemia and was started on iron supplement. Reports occasional dizzy spells chilly, feels weak. Record Review: [facility] / Outside records reviewed. PAST MEDICAL HISTORY Diagnosis Date - Hypothyroidism - Shoulder stiffness, left 02/18/2020 - Weakness of left arm 02/18/2020 PAST SURGICAL HISTORY Procedure Laterality Date - COLONOSCOPY GEN ANES 07/27/2014 normal colon - MASTECTOMY, PARTIAL 09/07/2004 - PAST SURGICAL HISTORY OF jaw surgery - PAST SURGICAL HISTORY OF BCC, right brow - PAST SURGICAL HISTORY OF breast cancer right breast Allergies: ALLERGIES Allergen Reactions - Venom-Honey Bee Swelling Medications: olmesartan (BENICAR) 20 mg tablet ferrous sulfate 325 mg (65 mg iron) tablet Take by mouth. multivitamin ORAL Tab Take one(1) tablet daily. folic acid 1 mg ORAL Tab Take one (1) tablet daily. escitalopram (LEXAPRO) 10 mg ORAL Tab polyethylene glycol 3350 (MIRALAX, GLYCOLAX) 17 gram/dose powder Use as directed for Miralax / Gatorade Bowel Prep Kit Bisacodyl (DULCOLAX) 5 mg tab Use as directed for Miralax / Gatorade Bowel Prep Kit omeprazole (PRILOSEC) 20 mg capsule Take 2 capsules by mouth once daily. FAMILY HISTORY Problem Relation Age of Onset - Arthritis Father - Colon Cancer No Family History Employer And Job Title: None on file Years Of Education Completed: Not specified Marital Status: Social History Tobacco Use - Smoking status: Former Smoker - Smokeless tobacco: Never Used - Tobacco comment: quit 1982 Substance Use Topics - Alcohol use: Yes Comment: beer vodka - Drug use: Never Review of Systems: Review of Systems Gastrointestinal: Positive for abdominal pain and blood in stool. All other systems reviewed and are negative. Are you taking any blood thinners? No Physical Examination: BP 106/70 Pulse 97 Ht 5' 4 (1.63m) Wt 134 lb (60.8kg) BMI 22.99 kg/(m2). Physical Exam Abdominal: Tenderness: There is abdominal tenderness in the epigastric area. ASSESSMENT: Black stool (primary encounter diagnosis) Anemia, unspecified type Epigastric pain PLAN: Assessment/Plan (K92.1) Black stool (primary encounter diagnosis) (D64.9) Anemia, unspecified type (R10.13) Epigastric pain 1. Black stool - polyethylene glycol 3350 (MIRALAX, GLYCOLAX) 17 gram/dose powder; Use as directed for Miralax / Gatorade Bowel Prep Kit Dispense: 238 g; Refill: 0 - Bisacodyl (DULCOLAX) 5 mg tab; Use as directed for Miralax / Gatorade Bowel Prep Kit Dispense: 4 tablet; Refill: 0 - FECAL OCCULT BLOOD TEST; Future - CBC + DIFF; Future - EGD; Future - COLONOSCOPY - DIAGNOSTIC - COMP METABOLIC PANEL; Future 2. Anemia, unspecified type - EGD; Future - COLONOSCOPY - DIAGNOSTIC - COMP METABOLIC PANEL; Future 3. Epigastric pain - EGD; Future - COLONOSCOPY - DIAGNOSTIC - COMP METABOLIC PANEL; Future Follow up in office 3 months/PRN. Recommended to please call office/go to ER if fever, chills, chest pain, SOB, diarrhea, nausea, emesis, worsening abdominal pain, dehydration occurs I spent 30 minutes in the visit, with more than 50% of the total [id number] time of the visit in counseling / coordination of care. I have confirmed and edited as necessary, the PFSH and ROS obtained by others. Samuel Khan APRN.FINANCIAL SERVICES DIRECTOR February 25, 2021 12:22 PM Samuel Khan APRN (more content not included)... Normal [facility] Comp Metabolic Panelon 02-25 Albumin [Mass/Vol] 4.6 g/dL Normal 3.9-4.9 [facility] ALP [Catalytic activity/Vol] 35 U/L Normal 34-123 [facility] ALT [Catalytic activity/Vol] 17 U/L Normal 7-38 [facility] Anion gap [Moles/Vol] 12 mmol/L Normal 9-18 [facility] AST [Catalytic activity/Vol] 26 U/L Normal 13-35 [facility] Bilirubin [Mass/Vol] 0.3 mg/dL Normal 0.2-1.3 [facility] Calcium [Mass/Vol] 9.5 mg/dL Normal 8.5-10.2 [facility] Chloride [Moles/Vol] 97 mmol/L Normal 97-105 [facility] CO2 [Moles/Vol] 23 mmol/L Normal 22-30 [facility] Creatinine [Mass/Vol] 0.95 mg/dL Normal 0.58-0.96 [facility] eGFR- Amer. >60 Normal [facility] Comment on above: Result Comment: Note : On 06/04/2021, the eGFR calculation will be updated to the NKF-ASN Task Force recommended 2020 CKD-EPI creatinine equation which does not include a race variable. For more information or to access a 2020 CKD-EPI calculator, visit the National Kidney Foundation website at kidney.org/professionals/kdoqi/gfr_calculator. eGFR-All Other Races 60 . Normal [facility] Comment on above: Result Comment: eGFR (Estimated GFR) Units of measure: mL/min/1.73 meters squared eGFR is derived from the reexpressed MDRD Study equation using the following parameters: serum creatinine, age, gender and race. The creatinine assay has been calibrated to be traceable to IDMS. An eGFR <60 mL/min/1.73m2 for >3 months is consistent with chronic kidney disease. Refer to KDOQI guidelines for clinical interpretation. In patients with unstable renal function, e.g. those with acute kidney injury, the eGFR may not accurately reflect actual GFR. Note: On 06/04/2021, the eGFR calculation will be updated to the NKF-ASN Task Force recommended 2020 CKD-EPI creatinine equation which does not include a race variable. For more information or to access a 2020 CKD-EPI calculator, visit the National Kidney Foundation website at kidney.org/professionals/kdoqi/gfr_calculator. Glucose [Mass/Vol] 94 mg/dL Normal 74-99 [facility] Comment on above: Result Comment: The [place] Diabetes Association (ADA) provides guidance for cutoff values for fasting glucose and random glucose. The ADA defines fasting as no caloric intake for at least 8 hours. Fasting plasma glucose results between 100 to 125 mg/dL indicate increased risk for diabetes (prediabetes). Fasting plasma glucose results greater than or equal to 126 mg/dL meet the criteria for diagnosis of diabetes. In the absence of unequivocal hyperglycemia, results should be confirmed by repeat testing. In a patient with classic symptoms of hyperglycemia or hyperglycemic crisis, random plasma glucose results greater than or equal to 200 mg/dL meet the criteria for diagnosis of diabetes. Reference: Standards of Medical Care in Diabetes 2016, [place] Diabetes Association. Diabetes Care. 2016.39(Suppl 1). Potassium [Moles/Vol] 5.1 mmol/L Normal 3.7-5.1 [facility] Protein [Mass/Vol] 6.9 g/dL Normal 6.3-8.0 [facility] Sodium [Moles/Vol] 132 mmol/L Low 136-144 [facility] Urea nitrogen [Mass/Vol] 27 mg/dL High 7-21 [facility] PROGRESSon 05-25-2020 PROGRESS HNO ID: [id number] Author: Vinayak Mason Service: ? Author Type: Physical Therapist Type: Progress Notes Filed: 05/25/2020 11:20 AM Note Text: 05/25/2020 [facility] REHABILITATION AND SPORTS THERAPY PHYSICAL THERAPY DISCONTINUANCE OF CARE Plan of Care Period: Start of Care Date: 02/18/20 Last Visit Date: 04/16/2020 Therapy Program: The following is a summary of the interventions provided for this episode of care; Therapeutic exercise Assessment: The following is the goal status: No specialty comments available. Based on the most recent progress report, patient was progressing as expected toward functional goals based on progress report. Reason for Discontinuation of Care: Patient has not returned to therapy or scheduled additional follow-up appointments. Pt never ret after progress report. Vinayak Mason, PT [facility] CNTHERAPYon 04-16-2020 CNTHERAPY OT/PT/Speech Visit (PTMDRG) -------- DANAY THOMPSON ([id number]) 1960 F Date Time Provider Department 04/16/20 4:15 PM HIMA MOLINA (PT) [facility] Date Time Provider Department Center 04/16/2020 4:15 PM [id number], SCOTT (P*PTMDRG [facility] Reason for Visit: PT Progress Note [1596] PT Discharge [752] Reason For Visit History Recorded Primary Visit Diagnosis:Shoulder stiffness, left [M25.612] Other Visit Diagnosis:Weakness of left arm [R29.898] Allergies As of Date: 04/16/2020 (No Known Allergies) Date Reviewed: 03/24/2009 Reviewed by: Davina Albert Lpn - Reviewed Prescriptions as of 04/16/2020 Sig: FISH OIL 500 MG CAPSULE Take one(1) capsule daily. MULTIVITAMIN TABLET Take one(1) tablet daily. FOLIC ACID 1 MG TABLET Take one (1) tablet daily. LEXAPRO 10 MG TABLET SYNTHROID 112 MCG TABLET Take one(1) tablet daily. ARIMIDEX 1 MG TABLET Progress Notes: Hima Molina PT 04/16/2020 5:38 PM Signed Episode Visit Count: 14 Therapist That Will Oversee The Plan Of Care: Hima Molina Start of Care Date: 02/18/20 Onset Date: 01/07/20 Patient Identified by Name and Date of : Yes REHABILITATION AND SPORTS THERAPY PHYSICAL THERAPY PROGRESS REPORT PLAN OF CARE UPDATE: Assessment: Danay Thompson exhibits good progress towards therapy goals over course of POC. Pt's sxs remain well controlled, pt has not experienced any pain over the last several weeks. Pt has improved shoulder AROM/strength in all planes. Pt's shoulder elevation AROM is > 140 ? and functional shoulder IR is to low thoracic region. Pt does continue to demonstrate shoulder weakness, however this is to be expected with RC repair. Pt's HEP was updated to target remaining strength deficits. Pt to f/u with therapy in 1 month (as needed) to ensure progression of shoulder strength to further improve tolerance for heavy and strenuous UE activities. Functional gains: Improved tolerance for self care activities ADLs Improved quality of movement Increased independence with HEP Increased ROM Increased strength Decreased intensity of pain Decreased frequency of pain Patient will improve L shoulder elevation AROM to > 120 ? and functional shoulder IR to upper lumbar region---Achieved -Patient will improve L shoulder strength to > 4-5 in all planes---Achieved -Patient will improve L shoulder strength to 5/5 in all planes------partially Achieved --Patient will have no difficulty sleeping through the night without interruption from shoulder sxs---Achieved -Patient will improve L shoulder PROM with in 80% of contralateral side---Partially Achieved [place] in home exercise program---Achieved Patient will decrease pain rating by 2 points to meet minimal clinical important difference for numeric pain rating scale---Achieved Planned Interventions, Frequency, and Duration: 1x/month, 4 weeks Total Number of Visits Planned: 1 Patient to be seen for Therapeutic exercise;Neuromuscular re-education;Manual therapy;Therapeutic activities;Self-retirement management;Patient/Famil y/Caregiver Education;Body Mechanics Training;Functional training Prognosis: Good Good due to: current objective clinical presentation SUBJECTIVE: Patient Reason for Visit: Pt reports a significant improvement since starting therapy in regards to shoulder ROM/function. Pt's sxs have been well controlled since surgery. pt denies any currently functional limtiations. . Pain: Pain Pain Level: 0 Pain Location: Shoulder - Left Post Treatment Pain Post Treatment Pain Level: No Change PROMIS Scales T-scores: mean of general population = 50. 5 points is clinically meaningfully difference Percentiles provide an indication of how the patient's score ranks in relation to the general population. Higher percentile rankings indicate better function/quality of life. 50th percentile is the average of the general population and indicates half of respondents had a worse score. T-scores: mean of general population = 50. 5 points is clinically meaningfully difference Percentiles provide an indication of how the patient's score ranks in relation to the general population. Higher percentile rankings indicate better function/quality of life. 50th percentile is the average of the general population and indicates half of respondents had a worse score. OBJECTIVE MEASURES WITH LEVEL OF FUNCTION: Posture / Alignment Posture: Increased thoracic kyphosis;Forward head;Rounded shoulders UE AROM L Shoulder Flex: 140 Degrees L Shoulder Internal Rotation (Functional): T12, lateral to midline L Shoulder External Rotation: 45 Degrees UE PROM L Shoulder Flex: 170 Degrees L Shoulder ABduction: 160 Degrees L Shoulder Internal Rotation: 20 Degrees(at 90) L Shoulder External Rotation: 80 Degrees(at 90) UE Joint Mobility L Shoulder joint mobility: Hypomobile UE and Cervical Strength L Shoulder Flexion: 4-/5 L Shoulder Abduction (C5): 4/5 L Shoulder Internal Rotation: 4+/5 L Shoulder External Rotation: 4-/5 TREATMENT: Therapeutic Exercise: 1: scit fit, x 5 min 2: reassessment performed 3: *scaption, #1, x 15, against wall for postural curing 4: *shoulder flexion, #1, x 15, against wall for postural cuing 5: *shoulder row, review 6: *shoulder extension, review 7: *D2 flexion, review 8: *shoulder IR/ER band, review 9: *shoulder pulleys, review 10: *shoulder wand exerciese, erview 11: *shoulder ER, S/l, #3, 2 x 15 Skilled Intervention: Patient was educated in proper exercise technique and purpose for exercises. Reviewed and educated patient on additions/changes for home exercise program as above (*) Billing: PT Services: Therapeutic Exercise (16396): 1:1 time: 30 minutes (2 units: 23-37 mins) Total time: 30 minutes Hima Molina, JOSÉ MANUEL Mason PT 05/25/2020 11:20 AM Signed 05/25/2020 [facility] REHABILITATION AND SPORTS THERAPY PHYSICAL THERAPY DISCONTINUANCE OF CARE Plan of Care Period: Start of Care Date: 02/18/20 Last Visit Date: 04/16/2020 Therapy Program: The following is a summary of the interventions provided for this episode of care; Therapeutic exercise Assessment: The following is the goal status: No specialty comments available. Based on the most recent progress report, patient was progressing as expected toward functional goals based on progress report. Reason for Discontinuation of Care: Patient has not returned to therapy or scheduled additional follow-up appointments. Pt never ret after progress report. Vinayak Mason PT -------- [facility] PROGRESSon 04-16-2020 PROGRESS HNO ID: [id number] Author: Hima (Pt) Jihan Service: ? Author Type: Physical Therapist Type: Progress Notes Filed: 04/16/2020 5:38 PM Note Text: Episode Visit Count: 14 Therapist That Will Oversee The Plan Of Care: Hima Molina Start of Care Date: 02/18/20 Onset Date: 01/07/20 Patient Identified by Name and Date of : Yes REHABILITATION AND SPORTS THERAPY PHYSICAL THERAPY PROGRESS REPORT PLAN OF CARE UPDATE: Assessment: Danay Thompson exhibits good progress towards therapy goals over course of POC. Pt's sxs remain well controlled, pt has not experienced any pain over the last several weeks. Pt has improved shoulder AROM/strength in all planes. Pt's shoulder elevation AROM is > 140 ? and functional shoulder IR is to low thoracic region. Pt does continue to demonstrate shoulder weakness, however this is to be expected with RC repair. Pt's HEP was updated to target remaining strength deficits. Pt to f/u with therapy in 1 month (as needed) to ensure progression of shoulder strength to further improve tolerance for heavy and strenuous UE activities. Functional gains: Improved tolerance for self care activities ADLs Improved quality of movement Increased independence with HEP Increased ROM Increased strength Decreased intensity of pain Decreased frequency of pain Patient will improve L shoulder elevation AROM to > 120 ? and functional shoulder IR to upper lumbar region---Achieved -Patient will improve L shoulder strength to > 4-5 in all planes---Achieved -Patient will improve L shoulder strength to 5/5 in all planes------partially Achieved --Patient will have no difficulty sleeping through the night without interruption from shoulder sxs---Achieved -Patient will improve L shoulder PROM with in 80% of contralateral side---Partially Achieved [place] in home exercise program---Achieved Patient will decrease pain rating by 2 points to meet minimal clinical important difference for numeric pain rating scale---Achieved Planned Interventions, Frequency, and Duration: 1x/month, 4 weeks Total Number of Visits Planned: 1 Patient to be seen for Therapeutic exercise;Neuromuscular re-education;Manual therapy;Therapeutic activities;Self-retirement management;Patient/Famil y/Caregiver Education;Body Mechanics Training;Functional training Prognosis: Good Good due to: current objective clinical presentation SUBJECTIVE: Patient Reason for Visit: Pt reports a significant improvement since starting therapy in regards to shoulder ROM/function. Pt's sxs have been well controlled since surgery. pt denies any currently functional limtiations. . Pain: Pain Pain Level: 0 Pain Location: Shoulder - Left Post Treatment Pain Post Treatment Pain Level: No Change PROMIS Scales T-scores: mean of general population = 50. 5 points is clinically meaningfully difference Percentiles provide an indication of how the patient's score ranks in relation to the general population. Higher percentile rankings indicate better function/quality of life. 50th percentile is the average of the general population and indicates half of respondents had a worse score. T-scores: mean of general population = 50. 5 points is clinically meaningfully difference Percentiles provide an indication of how the patient's score ranks in relation to the general population. Higher percentile rankings indicate better function/quality of life. 50th percentile is the average of the general population and indicates half of respondents had a worse score. OBJECTIVE MEASURES WITH LEVEL OF FUNCTION: Posture / Alignment Posture: Increased thoracic kyphosis;Forward head;Rounded shoulders UE AROM L Shoulder Flex: 140 Degrees L Shoulder Internal Rotation (Functional): T12, lateral to midline L Shoulder External Rotation: 45 Degrees UE PROM L Shoulder Flex: 170 Degrees L Shoulder ABduction: 160 Degrees L Shoulder Internal Rotation: 20 Degrees(at 90) L Shoulder External Rotation: 80 Degrees(at 90) UE Joint Mobility L Shoulder joint mobility: Hypomobile UE and Cervical Strength L Shoulder Flexion: 4-/5 L Shoulder Abduction (C5): 4/5 L Shoulder Internal Rotation: 4+/5 L Shoulder External Rotation: 4-/5 TREATMENT: Therapeutic Exercise: 1: scit fit, x 5 min 2: reassessment performed 3: *scaption, #1, x 15, against wall for postural curing 4: *shoulder flexion, #1, x 15, against wall for postural cuing 5: *shoulder row, review 6: *shoulder extension, review 7: *D2 flexion, review 8: *shoulder IR/ER band, review 9: *shoulder pulleys, review 10: *shoulder wand exerciese, erview 11: *shoulder ER, S/l, #3, 2 x 15 Skilled Intervention: Patient was educated in proper exercise technique and purpose for exercises. Reviewed and educated patient on additions/changes for home exercise program as above (*) Billing: PT Services: Therapeutic Exercise ([id number]): 1:1 time: 30 minutes (2 units: 23-37 mins) Total time: 30 minutes Hima Molina PT [facility] CNTHERAPYon 04-12-2020 CNTHERAPY OT/PT/Speech Visit (PTMDRG) -------- DANAY THOMPSON ([id number]) 1960 F Date Time Provider Department 04/12/20 4:00 PM JANNET RAMOS ([facility] PTMDRG Date Time Provider Department Center 04/12/2020 4:00 PM [id number], SUSAN *PTMDRG [facility] Reason for Visit: Physical Therapy [503] Primary Visit Diagnosis:Shoulder stiffness, left [M25.612] Other Visit Diagnosis:Weakness of left arm [R29.898] Allergies As of Date: 04/12/2020 (No Known Allergies) Date Reviewed: 03/24/2009 Reviewed by: Davina Albert Lpn - Reviewed Prescriptions as of 04/12/2020 Sig: FISH OIL 500 MG CAPSULE Take one(1) capsule daily. MULTIVITAMIN TABLET Take one(1) tablet daily. FOLIC ACID 1 MG TABLET Take one (1) tablet daily. LEXAPRO 10 MG TABLET SYNTHROID 112 MCG TABLET Take one(1) tablet daily. ARIMIDEX 1 MG TABLET Progress Notes: Jannet Ramos PTA 04/12/2020 5:11 PM Signed Episode Visit Count: 13 Therapist That Will Oversee The Plan Of Care: Hima Molina Start of Care Date: 02/18/20 Onset Date: 01/07/20 REHABILITATION AND SPORTS THERAPY PHYSICAL THERAPY TREATMENT NOTE ASSESSMENT: Danay Donna is challenged with Kemp push outs and notes one episode of 'popping' in left shoulder, (no pain) . Patient exhibits difficulty/lack of co-ordination with overhead plyoball toss, reverting to a chest press with increased repetitions. Patients scapular stabilization endurance is challenged with BOING exercise. Active flexion is improving. PLAN FOR NEXT VISIT: Recheck with possible discharge SUBJECTIVE: Patient Reason for Visit: Patient reports no difficulties with home activities. No pain complaints Pain: Pain Pain Level: 0 Pain Location: Shoulder - Left Post Treatment Pain Post Treatment Pain Level: 0 Post Treatment Pain Location: Shoulder - Left OBJECTIVE MEASURES WITH LEVEL OF FUNCTION: UE AROM L Shoulder Flex: 149 Degrees L Shoulder ABduction: 144 Degrees L Shoulder Internal Rotation (Functional): T10 TREATMENT: Therapeutic Exercise: 1: Scifit, seat 8, L4.0 , 4 minutes change at half 3: *wall walk into flexion and abduction with eccentric lower 5 reps x 5 seconds 5: Hi ER doorway stretch 3 x 20 seconds 6: *wall push up with plus 10 x 2 8: BOING into flexion and abduction at 90 degrees 3 x 20 seconds 9: stiring the pot with 2 #, in/out, x 10 each Skilled Intervention: Patient was educated in proper exercise technique and purpose for exercises. Reviewed and educated patient on additions/changes for home exercise program as above (*) Skilled judgment was provided in selection of appropriate interventions. Provided written instruction for home exercise program to facilitate proper performance and compliance. Correct performance of therapeutic exercises was facilitated with verbal and visual cuing. Therapeutic Activity: 1: *sled push, 22 pounds 120 feet x 2 2: Hannah ,push/ pull , with 6.3 resistance 10 x 2 each 3: plyoball chest press, 2 #, x 10 4: Plyoball overhead toss with 2 # x 10 5: L shoulder overhand toss with 2# , x 10 6: *core ball diagonals, with 6 # coreball x 15, ( tband and dumbell instruction for HEP) Skilled Intervention: Instructed on proper lifting and carrying techniques with importance of core activation. Educated on proper/safe technique for activities performed today. Activity progression based on professional judgment. Billing: Sue: Therapeutic Exercise ([id number]): 1:1 time: 25 minutes (2 units: 23-37 mins) Therapeutic Activity ([id number]): 1:1 time: 20 minutes (1 unit: 8-22 mins) Total time / Length of visit: 46 minutes Jannet Ramos PTA -------- [facility] PROGRESSon 04-12-2020 PROGRESS HNO ID: [id number] Author: Jannet Garcia [facility] Service: ? Author Type: [employer] Type: Progress Notes Filed: 04/12/2020 5:11 PM Note Text: Episode Visit Count: 13 Therapist That Will Oversee The Plan Of Care: Hima Molina Start of Care Date: 02/18/20 Onset Date: 01/07/20 REHABILITATION AND SPORTS THERAPY PHYSICAL THERAPY TREATMENT NOTE ASSESSMENT: Danay Donna is challenged with Kemp push outs and notes one episode of 'popping' in left shoulder, (no pain) . Patient exhibits difficulty/lack of co-ordination with overhead plyoball toss, reverting to a chest press with increased repetitions. Patients scapular stabilization endurance is challenged with BOING exercise. Active flexion is improving. PLAN FOR NEXT VISIT: Recheck with possible discharge SUBJECTIVE: Patient Reason for Visit: Patient reports no difficulties with home activities. No pain complaints Pain: Pain Pain Level: 0 Pain Location: Shoulder - Left Post Treatment Pain Post Treatment Pain Level: 0 Post Treatment Pain Location: Shoulder - Left OBJECTIVE MEASURES WITH LEVEL OF FUNCTION: UE AROM L Shoulder Flex: 149 Degrees L Shoulder ABduction: 144 Degrees L Shoulder Internal Rotation (Functional): T10 TREATMENT: Therapeutic Exercise: 1: Scifit, seat 8, L4.0 , 4 minutes change at half 3: *wall walk into flexion and abduction with eccentric lower 5 reps x 5 seconds 5: Hi ER doorway stretch 3 x 20 seconds 6: *wall push up with plus 10 x 2 8: BOING into flexion and abduction at 90 degrees 3 x 20 seconds 9: stiring the pot with 2 #, in/out, x 10 each Skilled Intervention: Patient was educated in proper exercise technique and purpose for exercises. Reviewed and educated patient on additions/changes for home exercise program as above (*) Skilled judgment was provided in selection of appropriate interventions. Provided written instruction for home exercise program to facilitate proper performance and compliance. Correct performance of therapeutic exercises was facilitated with verbal and visual cuing. Therapeutic Activity: 1: *sled push, 22 pounds 120 feet x 2 2: Hannah ,push/ pull , with 6.3 resistance 10 x 2 each 3: plyoball chest press, 2 #, x 10 4: Plyoball overhead toss with 2 # x 10 5: L shoulder overhand toss with 2# , x 10 6: *core ball diagonals, with 6 # coreball x 15, ( tband and dumbell instruction for HEP) Skilled Intervention: Instructed on proper lifting and carrying techniques with importance of core activation. Educated on proper/safe technique for activities performed today. Activity progression based on professional judgment. Billing: [place]: Therapeutic Exercise ([id number]): 1:1 time: 25 minutes (2 units: 23-37 mins) Therapeutic Activity ([id number]): 1:1 time: 20 minutes (1 unit: 8-22 mins) Total time / Length of visit: 46 minutes Jannet Ramos PTA [facility] CNTHERAPYon 04-07-2020 CNTHERAPY OT/PT/Speech Visit (PTMDRG) -------- DANAY THOMPSON ([id number]) 1960 F Date Time Provider Department 04/07/20 4:15 PM JANNET RAMOS ([facility]) PTMDRG Date Time Provider Department Center 04/07/2020 4:15 PM [id number], SUSAN *PTMDRG [facility] Reason for Visit: Physical Therapy [503] Primary Visit Diagnosis:Shoulder stiffness, left [M25.612] Other Visit Diagnosis:Weakness of left arm [R29.898] Allergies As of Date: 04/07/2020 (No Known Allergies) Date Reviewed: 03/24/2009 Reviewed by: Davina Albert Lpn - Reviewed Prescriptions as of 04/07/2020 Sig: FISH OIL 500 MG CAPSULE Take one(1) capsule daily. MULTIVITAMIN TABLET Take one(1) tablet daily. FOLIC ACID 1 MG TABLET Take one (1) tablet daily. LEXAPRO 10 MG TABLET SYNTHROID 112 MCG TABLET Take one(1) tablet daily. ARIMIDEX 1 MG TABLET Progress Notes: Jannet Ramos PTA 04/07/2020 5:20 PM Signed Episode Visit Count: 12 Therapist That Will Oversee The Plan Of Care: Hima Molina Start of Care Date: 02/18/20 Onset Date: 01/07/20 REHABILITATION AND SPORTS THERAPY PHYSICAL THERAPY TREATMENT NOTE ASSESSMENT: Danay Thompson continues to progress slowly with AROM in left shoulder. Patient is challenged with Hannah pushing movement. The patient will continue to benefit from ongoing skilled physical therapy for AROM and strengthening. PLAN FOR NEXT VISIT: Add wall push up and sled push/pull, crate lift SUBJECTIVE: Patient Reason for Visit: Patient reports that she can now reach top shelf in cabinets. Patient is sleeping through night. Pain: Pain Pain Level: 0 Pain Location: Shoulder - Left Post Treatment Pain Post Treatment Pain Level: 0 OBJECTIVE MEASURES WITH LEVEL OF FUNCTION: UE AROM L Shoulder Flex: 142 Degrees L Shoulder ABduction: 140 Degrees L Shoulder Internal Rotation (Functional): T11 L Shoulder External Rotation (Functional): T1 TREATMENT: Therapeutic Exercise: 1: Scifit, seat 8, L 3.5 , 5 minutes change at half 3: *wall walk into flexion and abduction with eccentric lower 5 reps x 5 seconds 5: Hi ER doorway stretch 3 x 20 seconds 7: *IR with orange tb 10 x 2 8: * ER with orange 10 x 2 10: core ball diagonals, with 6 # corebal x 10 11: Kemp ,push/ pull , (pulling with 7.8 resistance, pushing out with 6.0 resistance x 10 each 12: BOING into flexion and abduction at 90 degrees 3 x 15 seconds 13: bicep curl , palm up and palm in ), with 5 # , 10 reps each Skilled Intervention: Patient was educated in proper exercise technique and purpose for exercises. Skilled judgment was provided in selection of appropriate interventions. Correct performance of therapeutic exercises was facilitated with verbal and visual cuing. Issued green xiang Billing: Sue: Therapeutic Exercise ([id number]): 1:1 time: 43 minutes (3 units: 38-52 mins) Total time / Length of visit: 45 minutes Jannet Ramos PTA -------- [facility] PROGRESSon 04-07-2020 PROGRESS HNO ID: [id number] Author: Jannet Garcia [facility] Service: ? Author Type: [employer] Type: Progress Notes Filed: 04/07/2020 5:20 PM Note Text: Episode Visit Count: 12 Therapist That Will Oversee The Plan Of Care: Hima Molina Start of Care Date: 02/18/20 Onset Date: 01/07/20 REHABILITATION AND SPORTS THERAPY PHYSICAL THERAPY TREATMENT NOTE ASSESSMENT: Danay Thompson continues to progress slowly with AROM in left shoulder. Patient is challenged with Hannah pushing movement. The patient will continue to benefit from ongoing skilled physical therapy for AROM and strengthening. PLAN FOR NEXT VISIT: Add wall push up and sled push/pull, crate lift SUBJECTIVE: Patient Reason for Visit: Patient reports that she can now reach top shelf in cabinets. Patient is sleeping through night. Pain: Pain Pain Level: 0 Pain Location: Shoulder - Left Post Treatment Pain Post Treatment Pain Level: 0 OBJECTIVE MEASURES WITH LEVEL OF FUNCTION: UE AROM L Shoulder Flex: 142 Degrees L Shoulder ABduction: 140 Degrees L Shoulder Internal Rotation (Functional): T11 L Shoulder External Rotation (Functional): T1 TREATMENT: Therapeutic Exercise: 1: Scifit, seat 8, L 3.5 , 5 minutes change at half 3: *wall walk into flexion and abduction with eccentric lower 5 reps x 5 seconds 5: Hi ER doorway stretch 3 x 20 seconds 7: *IR with orange tb 10 x 2 8: * ER with orange 10 x 2 10: core ball diagonals, with 6 # corebal x 10 11: Hannah ,push/ pull , (pulling with 7.8 resistance, pushing out with 6.0 resistance x 10 each 12: BOING into flexion and abduction at 90 degrees 3 x 15 seconds 13: bicep curl , palm up and palm in ), with 5 # , 10 reps each Skilled Intervention: Patient was educated in proper exercise technique and purpose for exercises. Skilled judgment was provided in selection of appropriate interventions. Correct performance of therapeutic exercises was facilitated with verbal and visual cuing. Issued green xiang Billing: [place]: Therapeutic Exercise ([id number]): 1:1 time: 43 minutes (3 units: 38-52 mins) Total time / Length of visit: 45 minutes Jannet Ramos PTA [facility] CNTHERAPYon 03-31-2020 CNTHERAPY OT/PT/Speech Visit (PTMDRG) -------- DANAY THOMPSON ([id number]) 1960 F Date Time Provider Department 03/31/20 12:15 PM SUSY SOMMERS ([facility]) PTMDRG Date Time Provider Department Center 03/31/2020 12:15 PM [id number], SHARON (*PTMDRG [facility] Reason for Visit: Physical Therapy [503] Primary Visit Diagnosis:Shoulder stiffness, left [M25.612] Other Visit Diagnosis:Weakness of left arm [R29.898] Allergies As of Date: 03/31/2020 (No Known Allergies) Date Reviewed: 03/24/2009 Reviewed by: Davina Albert Lpn - Reviewed Prescriptions as of 03/31/2020 Sig: FISH OIL 500 MG CAPSULE Take one(1) capsule daily. MULTIVITAMIN TABLET Take one(1) tablet daily. FOLIC ACID 1 MG TABLET Take one (1) tablet daily. LEXAPRO 10 MG TABLET SYNTHROID 112 MCG TABLET Take one(1) tablet daily. ARIMIDEX 1 MG TABLET Progress Notes: Susy Sommers PTA 03/31/2020 3:09 PM Signed Episode Visit Count: 11 Therapist That Will Oversee The Plan Of Care: Hima Molina Start of Care Date: 02/18/20 Onset Date: 01/07/20 Patient Identified by Name and Date of : Yes REHABILITATION AND SPORTS THERAPY PHYSICAL THERAPY TREATMENT NOTE ASSESSMENT: Danay Thompson demonstrated improvements in left shoulder ROM. The patient will continue to benefit from ongoing skilled physical therapy for left shoulder strengthening and ROM. PLAN FOR NEXT VISIT: Monitor tolerance to today's visit. SUBJECTIVE: Patient Reason for Visit: Pt states she continues to get random stiffness in the L shoulder. She states she had a little achiness this AM, but that's starting to get less, and less. Pain: Pain Pain Level: 0 Pain Location: Shoulder - Left Description: Stiffness Frequency: Intermittent Post Treatment Pain Post Treatment Pain Level: 0 OBJECTIVE MEASURES WITH LEVEL OF FUNCTION: Posture / Alignment Posture: Increased thoracic kyphosis;Forward head;Rounded shoulders UE PROM L Shoulder Flex: 173 Degrees(in mild scaption) L Shoulder ABduction: 140 Degrees L Shoulder Internal Rotation: 50 Degrees(~40 degrees abd) L Shoulder External Rotation: 65 Degrees(~20 degrees abd; end range tightness) TREATMENT: Therapeutic Exercise: 1: Scifit, seat 8, L 2.5 , 5 minutes change at half 5: Hi ER doorway stretch 3 x 20 seconds 12: scap set with L adduction with yellow tband, 2 x 10 13: weight transfers: 1, 2, and 3#, (37<> 58) x 10 each straight, and x 10 each D1 and D2 flexion Skilled Intervention: Patient was educated in proper exercise technique and purpose for exercises. Skilled judgment was provided in selection of appropriate interventions. Correct performance of therapeutic exercises was facilitated with verbal and visual cuing. Manual Therapy: 2: supine post, lat, and inferior glides L 5: medial/lateral scap mobs L 6: MET for flexion, IR, and ER Skilled Intervention: Manual skills to improve joint mobility, ROM, and decrease pain. Utilized anatomy knowledge of the therapist, and assessment of patient's response to intervention. Billing: Sue: Therapeutic Exercise ([id number]): 1:1 time: 25 minutes (2 units: 23-37 mins) Manual Therapy ([id number]): 1:1 time: `5 minutes (1 unit: 8-22 mins) Total time / Length of visit: 44 minutes Susy Sommers PTA -------- [facility] PROGRESSon 03-31-2020 PROGRESS HNO ID: [id number] Author: Susy Sommers Service: ? Author Type: [employer] Type: Progress Notes Filed: 03/31/2020 3:09 PM Note Text: Episode Visit Count: 11 Therapist That Will Oversee The Plan Of Care: Hima Molina Start of Care Date: 02/18/20 Onset Date: 01/07/20 Patient Identified by Name and Date of : Yes REHABILITATION AND SPORTS THERAPY PHYSICAL THERAPY TREATMENT NOTE ASSESSMENT: Danay Thompson demonstrated improvements in left shoulder ROM. The patient will continue to benefit from ongoing skilled physical therapy for left shoulder strengthening and ROM. PLAN FOR NEXT VISIT: Monitor tolerance to today's visit. SUBJECTIVE: Patient Reason for Visit: Pt states she continues to get random stiffness in the L shoulder. She states she had a little achiness this AM, but that's starting to get less, and less. Pain: Pain Pain Level: 0 Pain Location: Shoulder - Left Description: Stiffness Frequency: Intermittent Post Treatment Pain Post Treatment Pain Level: 0 OBJECTIVE MEASURES WITH LEVEL OF FUNCTION: Posture / Alignment Posture: Increased thoracic kyphosis;Forward head;Rounded shoulders UE PROM L Shoulder Flex: 173 Degrees(in mild scaption) L Shoulder ABduction: 140 Degrees L Shoulder Internal Rotation: 50 Degrees(~40 degrees abd) L Shoulder External Rotation: 65 Degrees(~20 degrees abd; end range tightness) TREATMENT: Therapeutic Exercise: 1: Scifit, seat 8, L 2.5 , 5 minutes change at half 5: Hi ER doorway stretch 3 x 20 seconds 12: scap set with L adduction with yellow tband, 2 x 10 13: weight transfers: 1, 2, and 3#, (37<> 58) x 10 each straight, and x 10 each D1 and D2 flexion Skilled Intervention: Patient was educated in proper exercise technique and purpose for exercises. Skilled judgment was provided in selection of appropriate interventions. Correct performance of therapeutic exercises was facilitated with verbal and visual cuing. Manual Therapy: 2: supine post, lat, and inferior glides L 5: medial/lateral scap mobs L 6: MET for flexion, IR, and ER Skilled Intervention: Manual skills to improve joint mobility, ROM, and decrease pain. Utilized anatomy knowledge of the therapist, and assessment of patient's response to intervention. [place]: Sue: Therapeutic Exercise ([id number]): 1:1 time: 25 minutes (2 units: 23-37 mins) Manual Therapy ([id number]): 1:1 time: `5 minutes (1 unit: 8-22 mins) Total time / Length of visit: 44 minutes Susy Sommers PTA [facility] CNTHERAPYon 03-29-2020 CNTHERAPY OT/PT/Speech Visit (PTMDRG) -------- DANAY THOMPSON ([id number]) 1960 F Date Time Provider Department 03/29/20 4:45 PM JANNET RAMOS ([facility] PTM[facility] Date Time Provider Department Center 03/29/2020 4:45 PM [id number], SUSAN *PTMDRG [facility] Reason for Visit: Physical Therapy [503] Primary Visit Diagnosis:Shoulder stiffness, left [M25.612] Other Visit Diagnosis:Weakness of left arm [R29.898] Allergies As of Date: 03/29/2020 (No Known Allergies) Date Reviewed: 03/24/2009 Reviewed by: Davina Albert Lpn - Reviewed Prescriptions as of 03/29/2020 Sig: FISH OIL 500 MG CAPSULE Take one(1) capsule daily. MULTIVITAMIN TABLET Take one(1) tablet daily. FOLIC ACID 1 MG TABLET Take one (1) tablet daily. LEXAPRO 10 MG TABLET SYNTHROID 112 MCG TABLET Take one(1) tablet daily. ARIMIDEX 1 MG TABLET Progress Notes: Jannet Ramos PTA 03/29/2020 5:56 PM Signed Episode Visit Count: 10 Therapist That Will Oversee The Plan Of Care: Hima Molina Start of Care Date: 02/18/20 Onset Date: 01/07/20 REHABILITATION AND SPORTS THERAPY PHYSICAL THERAPY TREATMENT NOTE ASSESSMENT: Danay Thompson demonstrated no change in active flexion, improved abduction and improve IR behind back. Patient able to progress into strengthening without discomfort. The patient will continue to benefit from ongoing skilled physical therapy for strengthening PLAN FOR NEXT VISIT: Attempt weight transfer SUBJECTIVE: Patient Reason for Visit: Patient reports, she is able to reach into cupboards and behind back, (to a degree) Pain: Pain Pain Level: 0 Pain Location: Shoulder - Left Post Treatment Pain Post Treatment Pain Level: No Change OBJECTIVE MEASURES WITH LEVEL OF FUNCTION: UE AROM L Shoulder Flex: 138 Degrees L Shoulder ABduction: 129 Degrees L Shoulder Internal Rotation (Functional): T12 TREATMENT: Therapeutic Exercise: 1: Scifit, seat 8, L 2.5 , 5 minutes change at half 3: *wall walk into flexion and abduction with eccentric lower 5 reps x 5 seconds 4: *IR stretch 3 x 15 5: *Hi ER doorway stretch 3 x 15 seconds 6: Standing alterate flexion 10 x 7: *IR with yellow tb 10 x 2 8: * ER with yellow tb 10 x 2 9: *bilateral flexion with 1 # x 10 10: *Bilateral abduction with 1 # , x 10 11: *rows and pulldowns with orange tb 10 x 2 12: *L adduction with yellow tb x 10 Skilled Intervention: Patient was educated in proper exercise technique and purpose for exercises. Reviewed and educated patient on additions/changes for home exercise program as above (*) Skilled judgment was provided in selection of appropriate interventions. Provided written instruction for home exercise program to facilitate proper performance and compliance. Correct performance of therapeutic exercises was facilitated with verbal and visual cuing. Manual Therapy: 2: Gentle GH inferior and posterior glides 3: L GH gentle distraction with passive flexion abduction and ER with gentle end stretching Skilled Intervention: Manual skills to improve joint mobility, ROM, and decrease pain. Utilized anatomy knowledge of the therapist, and assessment of patient's response to intervention. [place]: Sue: Therapeutic Exercise ([id number]): 1:1 time: 33 minutes (2 units: 23-37 mins) Manual Therapy ([id number]): 1:1 time: 14 minutes (1 unit: 8-22 mins) Total time / Length of visit: 47 minutes Jannet Ramos PTA -------- [facility] PROGRESSon 12-21-2020 PROGRESS HNO ID: [id number] Author: Jannet Zendejas) [facility] Service: ? Author Type: [employer] Type: Progress Notes Filed: 03/29/2020 5:56 PM Note Text: Episode Visit Count: 10 Therapist That Will Oversee The Plan Of Care: Hiam Molina Start of Care Date: 02/18/20 Onset Date: 01/07/20 REHABILITATION AND SPORTS THERAPY PHYSICAL THERAPY TREATMENT NOTE ASSESSMENT: Danay Thompson demonstrated no change in active flexion, improved abduction and improve IR behind back. Patient able to progress into strengthening without discomfort. The patient will continue to benefit from ongoing skilled physical therapy for strengthening PLAN FOR NEXT VISIT: Attempt weight transfer SUBJECTIVE: Patient Reason for Visit: Patient reports, she is able to reach into cupboards and behind back, (to a degree) Pain: Pain Pain Level: 0 Pain Location: Shoulder - Left Post Treatment Pain Post Treatment Pain Level: No Change OBJECTIVE MEASURES WITH LEVEL OF FUNCTION: UE AROM L Shoulder Flex: 138 Degrees L Shoulder ABduction: 129 Degrees L Shoulder Internal Rotation (Functional): T12 TREATMENT: Therapeutic Exercise: 1: Scifit, seat 8, L 2.5 , 5 minutes change at half 3: *wall walk into flexion and abduction with eccentric lower 5 reps x 5 seconds 4: *IR stretch 3 x 15 5: *Hi ER doorway stretch 3 x 15 seconds 6: Standing alterate flexion 10 x 7: *IR with yellow tb 10 x 2 8: * ER with yellow tb 10 x 2 9: *bilateral flexion with 1 # x 10 10: *Bilateral abduction with 1 # , x 10 11: *rows and pulldowns with orange tb 10 x 2 12: *L adduction with yellow tb x 10 Skilled Intervention: Patient was educated in proper exercise technique and purpose for exercises. Reviewed and educated patient on additions/changes for home exercise program as above (*) Skilled judgment was provided in selection of appropriate interventions. Provided written instruction for home exercise program to facilitate proper performance and compliance. Correct performance of therapeutic exercises was facilitated with verbal and visual cuing. Manual Therapy: 2: Gentle GH inferior and posterior glides 3: L GH gentle distraction with passive flexion abduction and ER with gentle end stretching Skilled Intervention: Manual skills to improve joint mobility, ROM, and decrease pain. Utilized anatomy knowledge of the therapist, and assessment of patient's response to intervention. Billing: [place]: Therapeutic Exercise ([id number]): 1:1 time: 33 minutes (2 units: 23-37 mins) Manual Therapy ([id number]): 1:1 time: 14 minutes (1 unit: 8-22 mins) Total time / Length of visit: 47 minutes Jannet Ramos PTA [facility] CNTHERAPYon 03-24-2020 CNTHERAPY OT/PT/Speech Visit (PTMDRG) -------- DANAY THOMPSON ([id number]) 1960 F Date Time Provider Department 03/24/20 4:15 PM JANNET RAMOS ([facility]) PTMDRG Date Time Provider Department Center 03/24/2020 4:15 PM [id number], SUSAN *PTMDRG [facility] Reason for Visit: Physical Therapy [503] Primary Visit Diagnosis:Shoulder stiffness, left [M25.612] Other Visit Diagnosis:Weakness of left arm [R29.898] Allergies As of Date: 03/24/2020 (No Known Allergies) Date Reviewed: 03/24/2009 Reviewed by: Davina Albert Lpn - Reviewed Prescriptions as of 03/24/2020 Sig: FISH OIL 500 MG CAPSULE Take one(1) capsule daily. MULTIVITAMIN TABLET Take one(1) tablet daily. FOLIC ACID 1 MG TABLET Take one (1) tablet daily. LEXAPRO 10 MG TABLET SYNTHROID 112 MCG TABLET Take one(1) tablet daily. ARIMIDEX 1 MG TABLET Progress Notes: Jannet Ramos PTA 03/24/2020 6:16 PM Signed Episode Visit Count: 9 Therapist That Will Oversee The Plan Of Care: Hima Molina Start of Care Date: 02/18/20 Onset Date: 01/07/20 REHABILITATION AND SPORTS THERAPY PHYSICAL THERAPY TREATMENT NOTE ASSESSMENT: Danay Thompson limited flexion and IR behind back. Patient is able to progress to phase III this session without increase in discomfort. Improved active flexion is noted. The patient will continue to benefit from ongoing skilled physical therapy for strengthening and flexibility PLAN FOR NEXT VISIT: Monitor response with addition of strengthening exercises. SUBJECTIVE: Patient Reason for Visit: Patient is getting better with reaching. Able to shampoo hair. Pain: Pain Pain Level: 0 Pain Location: Shoulder - Left Post Treatment Pain Post Treatment Pain Level: No Change OBJECTIVE MEASURES WITH LEVEL OF FUNCTION: UE AROM L Shoulder Flex: 138 Degrees TREATMENT: Therapeutic Exercise: 2: air dyne, seat 2, UE only, x 5 min 3: *wall walk into flexion and abduction with eccentric lower 5 reps x 5 seconds 4: *IR stretch 3 x 15 5: *ER doorway stretch 3 x 15 seconds 6: Standing alterate flexion 10 x 7: *IR with yellow tb x 10 8: * ER with yellow tb x 10 Skilled Intervention: Patient was educated in proper exercise technique and purpose for exercises. Reviewed and educated patient on additions/changes for home exercise program as above (*) Skilled judgment was provided in selection of appropriate interventions. Provided written instruction for home exercise program to facilitate proper performance and compliance. Correct performance of therapeutic exercises was facilitated with verbal and visual cuing. Billing: [place]: Therapeutic Exercise ([id number]): 1:1 time: 42 minutes (3 units: 38-52 mins) Total time / Length of visit: 44 minutes Jannet Ramos PTA -------- Normal [facility] PROGRESSon 03-24-2020 PROGRESS HNO ID: [id number] Author: Jannet Ramos Service: ? Author Type: [employer] Type: Progress Notes Filed: 03/24/2020 6:16 PM Note Text: Episode Visit Count: 9 Therapist That Will Oversee The Plan Of Care: Hima Molina Start of Care Date: 02/18/20 Onset Date: 01/07/20 REHABILITATION AND SPORTS THERAPY PHYSICAL THERAPY TREATMENT NOTE ASSESSMENT: Danay Donna limited flexion and IR behind back. Patient is able to progress to phase III this session without increase in discomfort. Improved active flexion is noted. The patient will continue to benefit from ongoing skilled physical therapy for strengthening and flexibility PLAN FOR NEXT VISIT: Monitor response with addition of strengthening exercises. SUBJECTIVE: Patient Reason for Visit: Patient is getting better with reaching. Able to shampoo hair. Pain: Pain Pain Level: 0 Pain Location: Shoulder - Left Post Treatment Pain Post Treatment Pain Level: No Change OBJECTIVE MEASURES WITH LEVEL OF FUNCTION: UE AROM L Shoulder Flex: 138 Degrees TREATMENT: Therapeutic Exercise: 2: air dyne, seat 2, UE only, x 5 min 3: *wall walk into flexion and abduction with eccentric lower 5 reps x 5 seconds 4: *IR stretch 3 x 15 5: *ER doorway stretch 3 x 15 seconds 6: Standing alterate flexion 10 x 7: *IR with yellow tb x 10 8: * ER with yellow tb x 10 Skilled Intervention: Patient was educated in proper exercise technique and purpose for exercises. Reviewed and educated patient on additions/changes for home exercise program as above (*) Skilled judgment was provided in selection of appropriate interventions. Provided written instruction for home exercise program to facilitate proper performance and compliance. Correct performance of therapeutic exercises was facilitated with verbal and visual cuing. Billing: [place]: Therapeutic Exercise ([id number]): 1:1 time: 42 minutes (3 units: 38-52 mins) Total time / Length of visit: 44 minutes Jannet Ramos PTA [facility] CNTHERAPYon 03-17-2020 CNTHERAPY OT/PT/Speech Visit (PTMDRG) -------- DANAY THOMPSON ([id number]) 1960 F Date Time Provider Department 03/17/20 3:45 PM HIMA MOLINA (PT) PTMDRG Date Time Provider Department Center 03/17/2020 3:45 PM [id number], SCOTT (P*PTMDRG [facility] Reason for Visit: PT Progress Note [[id number]] Primary Visit Diagnosis:Shoulder stiffness, left [M25.612] Other Visit Diagnosis:Weakness of left arm [R29.898] Allergies As of Date: 03/17/2020 (No Known Allergies) Date Reviewed: 03/24/2009 Reviewed by: Davina Albert Lpn - Reviewed Prescriptions as of 03/17/2020 Sig: FISH OIL 500 MG CAPSULE Take one(1) capsule daily. MULTIVITAMIN TABLET Take one(1) tablet daily. FOLIC ACID 1 MG TABLET Take one (1) tablet daily. LEXAPRO 10 MG TABLET SYNTHROID 112 MCG TABLET Take one(1) tablet daily. ARIMIDEX 1 MG TABLET Progress Notes: Hima Molina, PT 03/17/2020 4:46 PM Signed Episode Visit Count: 8 Therapist That Will Oversee The Plan Of Care: Hima Molina Start of Care Date: 02/18/20 Onset Date: 01/07/20 Patient Identified by Name and Date of : Yes REHABILITATION AND SPORTS THERAPY PHYSICAL THERAPY PROGRESS REPORT PLAN OF CARE UPDATE: Assessment: Danay Thompson exhibits good progress towards therapy goals over initial course of therapy. Pt's pain continues to be well controlled, pt's worst pain over last week is < 1/10. Pt continues to have stiffness but severity is less intense than at start of therapy. Pt demonstrates good progress in regards to shoulder ROM/strength in all planes. Shoulder flexion has increased from 90 ? at eval to 130 ? currently and functional shoulder IR from sacral region to upper lumbar. As a result, pt has improved tolerance for ADLs and self care activities. Pt will benefit from continued skilled therapy to progress shoulder ROM/strength in all planes and functional training to further minimize functional limitations. Functional gains: Improved tolerance for self care activities/ADLs Improved sleep Improved quality of movement Increased independence with HEP Increased ROM Increased strength Decreased intensity of pain Decreased frequency of pain Patient will improve L shoulder elevation AROM to > 120 ? and functional shoulder IR to upper lumbar region---Achieved -Patient will improve L shoulder strength to > 4-5 in all planes---Achieved -Patient will improve L shoulder strength to 5/5 in all planes---new goal created 03/17/2020 --Patient will have no difficulty sleeping through the night without interruption from shoulder sxs---Achieved -Patient will improve L shoulder PROM with in 80% of contralateral side---Partially Achieved [place] in home exercise program---Achieved Patient will decrease pain rating by 2 points to meet minimal clinical important difference for numeric pain rating scale---Achieved Planned Interventions, Frequency, and Duration: 2x/week, 4 weeks Total Number of Visits Planned: 6 Patient to be seen for Therapeutic exercise;Neuromuscular re-education;Manual therapy;Therapeutic activities;Self-retirement management;Patient/Famil y/Caregiver Education;Body Mechanics Training;Functional training Prognosis: Good Good due to: current objective clinical presentation SUBJECTIVE: Patient Reason for Visit: Pt had a f/u with surgeon and was given a good report. Pt is appropriate to slowly progress to strengthening. Pt states that sxs continue to remain well controlled, pt experiences minimal pain. Pt notes that the stiffness has improved but is still there. Pt is open to continuing therapy., . Pain: Pain Pain Level: 0(worst pain over last week: < 1/10) Pain Location: Shoulder - Left Description: Stiffness Frequency: Intermittent Post Treatment Pain Post Treatment Pain Level: No Change PROMIS Scales T-scores: mean of general population = 50. 5 points is clinically meaningfully difference Percentiles provide an indication of how the patient's score ranks in relation to the general population. Higher percentile rankings indicate better function/quality of life. 50th percentile is the average of the general population and indicates half of respondents had a worse score. T-scores: mean of general population = 50. 5 points is clinically meaningfully difference Percentiles provide an indication of how the patient's score ranks in relation to the general population. Higher percentile rankings indicate better function/quality of life. 50th percentile is the average of the general population and indicates half of respondents had a worse score. OBJECTIVE MEASURES WITH LEVEL OF FUNCTION: UE AROM L Shoulder Flex: 130 Degrees L Shoulder ABduction: 125 Degrees L Shoulder Internal Rotation (Functional): L1 L Shoulder External Rotation (Functional): min limitation UE PROM L Shoulder Flex: 150 Degrees(mild stiffness at end range) L Shoulder ABduction: 135 Degrees(mild stiffness at end range) L Shoulder Internal Rotation: 45 Degrees(arm by side) L Shoulder External Rotation: 45 Degrees(arm by side) UE and Cervical Strength L Shoulder Flexion: 4-/5 L Shoulder Abduction (C5): 4-/5 L Shoulder Internal Rotation: 4/5 L Shoulder External Rotation: 4-/5 TREATMENT: Therapeutic Exercise: 1: reassessment performed 2: air dyne, UE only, x 5 min 3: *pulleys, flexion/abduction review 4: *shoulder flexion AAROM, supine with wand, 3 sechold x 15 5: *shoulder ABD AAROM, supine with wand x 10, standing, 3 sec hold x 15 6: *shoulder ER AAROM, supine with wand, 3 sec hold x 15 7: *shoulder IR AAROM, nida, review 8: *shoulder isometrics, review Skilled Intervention: Patient was educated in proper exercise technique and purpose for exercises. Reviewed and educated patient on additions/changes for home exercise program as above (*) Manual Therapy: 1: shoulder elevation PROM in all planes 2: shoulder IR/ER PROM with arm by side Skilled Intervention: Manual skills to improve joint mobility, ROM, and decrease pain. Utilized anatomy knowledge of the therapist, and assessment of patient's response to intervention. Billing: PT Services: Therapeutic Exercise ([id number]): 1:1 time: 30 minutes (2 units: 23-37 mins) Manual Therapy ([id number]): 1:1 time: 15 minutes (1 unit: 8-22 mins) Total time: 45 minutes Hima Molina PT -------- [facility] PROGRESSon 03-17-2020 PROGRESS HNO ID: [id number] Author: Hima (Pt) Jihan Service: ? Author Type: Physical Therapist Type: Progress Notes Filed: 03/17/2020 4:46 PM Note Text: Episode Visit Count: 8 Therapist That Will Oversee The Plan Of Care: Hima Molina Start of Care Date: 02/18/20 Onset Date: 01/07/20 Patient Identified by Name and Date of : Yes REHABILITATION AND SPORTS THERAPY PHYSICAL THERAPY PROGRESS REPORT PLAN OF CARE UPDATE: Assessment: Danay Thompson exhibits good progress towards therapy goals over initial course of therapy. Pt's pain continues to be well controlled, pt's worst pain over last week is < 1/10. Pt continues to have stiffness but severity is less intense than at start of therapy. Pt demonstrates good progress in regards to shoulder ROM/strength in all planes. Shoulder flexion has increased from 90 ? at eval to 130 ? currently and functional shoulder IR from sacral region to upper lumbar. As a result, pt has improved tolerance for ADLs and self care activities. Pt will benefit from continued skilled therapy to progress shoulder ROM/strength in all planes and functional training to further minimize functional limitations. Functional gains: Improved tolerance for self care activities/ADLs Improved sleep Improved quality of movement Increased independence with HEP Increased ROM Increased strength Decreased intensity of pain Decreased frequency of pain Patient will improve L shoulder elevation AROM to > 120 ? and functional shoulder IR to upper lumbar region---Achieved -Patient will improve L shoulder strength to > 4-5 in all planes---Achieved -Patient will improve L shoulder strength to 5/5 in all planes---new goal created 03/17/2020 --Patient will have no difficulty sleeping through the night without interruption from shoulder sxs---Achieved -Patient will improve L shoulder PROM with in 80% of contralateral side---Partially Achieved [place] in home exercise program---Achieved Patient will decrease pain rating by 2 points to meet minimal clinical important difference for numeric pain rating scale---Achieved Planned Interventions, Frequency, and Duration: 2x/week, 4 weeks Total Number of Visits Planned: 6 Patient to be seen for Therapeutic exercise;Neuromuscular re-education;Manual therapy;Therapeutic activities;Self-retirement management;Patient/Famil y/Caregiver Education;Body Mechanics Training;Functional training Prognosis: Good Good due to: current objective clinical presentation SUBJECTIVE: Patient Reason for Visit: Pt had a f/u with surgeon and was given a good report. Pt is appropriate to slowly progress to strengthening. Pt states that sxs continue to remain well controlled, pt experiences minimal pain. Pt notes that the stiffness has improved but is still there. Pt is open to continuing therapy., . Pain: Pain Pain Level: 0(worst pain over last week: < 1/10) Pain Location: Shoulder - Left Description: Stiffness Frequency: Intermittent Post Treatment Pain Post Treatment Pain Level: No Change PROMIS Scales T-scores: mean of general population = 50. 5 points is clinically meaningfully difference Percentiles provide an indication of how the patient's score ranks in relation to the general population. Higher percentile rankings indicate better function/quality of life. 50th percentile is the average of the general population and indicates half of respondents had a worse score. T-scores: mean of general population = 50. 5 points is clinically meaningfully difference Percentiles provide an indication of how the patient's score ranks in relation to the general population. Higher percentile rankings indicate better function/quality of life. 50th percentile is the average of the general population and indicates half of respondents had a worse score. OBJECTIVE MEASURES WITH LEVEL OF FUNCTION: UE AROM L Shoulder Flex: 130 Degrees L Shoulder ABduction: 125 Degrees L Shoulder Internal Rotation (Functional): L1 L Shoulder External Rotation (Functional): min limitation UE PROM L Shoulder Flex: 150 Degrees(mild stiffness at end range) L Shoulder ABduction: 135 Degrees(mild stiffness at end range) L Shoulder Internal Rotation: 45 Degrees(arm by side) L Shoulder External Rotation: 45 Degrees(arm by side) UE and Cervical Strength L Shoulder Flexion: 4-/5 L Shoulder Abduction (C5): 4-/5 L Shoulder Internal Rotation: 4/5 L Shoulder External Rotation: 4-/5 TREATMENT: Therapeutic Exercise: 1: reassessment performed 2: air dyne, UE only, x 5 min 3: *pulleys, flexion/abduction review 4: *shoulder flexion AAROM, supine with wand, 3 sechold x 15 5: *shoulder ABD AAROM, supine with wand x 10, standing, 3 sec hold x 15 6: *shoulder ER AAROM, supine with wand, 3 sec hold x 15 7: *shoulder IR AAROM, nida, review 8: *shoulder isometrics, review Skilled Intervention: Patient was educated in proper exercise technique and purpose for exercises. Reviewed and educated patient on additions/changes for home exercise program as above (*) Manual Therapy: 1: shoulder elevation PROM in all planes 2: shoulder IR/ER PROM with arm by side Skilled Intervention: Manual skills to improve joint mobility, ROM, and decrease pain. Utilized anatomy knowledge of the therapist, and assessment of patient's response to intervention. Billing: PT Services: Therapeutic Exercise ([id number]): 1:1 time: 30 minutes (2 units: 23-37 mins) Manual Therapy ([id number]): 1:1 time: 15 minutes (1 unit: 8-22 mins) Total time: 45 minutes Hima Molina PT [facility] CNTHERAPYon 03-15-2020 CNTHERAPY OT/PT/Speech Visit (PTMDRG) -------- DONNADANAY HSU ([id number]) 1960 F Date Time Provider Department 03/15/20 4:00 PM JANNET RAMOS ([facility]) PTMDRG Date Time Provider Department Center 03/15/2020 4:00 PM [id number], SUSAN *PTMDRG [facility] Reason for Visit: Physical Therapy [503] Primary Visit Diagnosis:Shoulder stiffness, left [M25.612] Other Visit Diagnosis:Weakness of left arm [R29.898] Allergies As of Date: 03/15/2020 (No Known Allergies) Date Reviewed: 03/24/2009 Reviewed by: Davina Albert Lpn - Reviewed Prescriptions as of 03/15/2020 Sig: FISH OIL 500 MG CAPSULE Take one(1) capsule daily. MULTIVITAMIN TABLET Take one(1) tablet daily. FOLIC ACID 1 MG TABLET Take one (1) tablet daily. LEXAPRO 10 MG TABLET SYNTHROID 112 MCG TABLET Take one(1) tablet daily. ARIMIDEX 1 MG TABLET Progress Notes: Jannet Ramos PTA 03/15/2020 5:56 PM Signed Episode Visit Count: 7 Therapist That Will Oversee The Plan Of Care: Hima Molina Start of Care Date: 02/18/20 Onset Date: 01/07/20 REHABILITATION AND SPORTS THERAPY PHYSICAL THERAPY TREATMENT NOTE ASSESSMENT: Danay Donna demonstrated difficulty initially with avoiding substitution with IR behind back. Patient is able to progress into active flexion and abduction versus gravity. The patient will continue to benefit from ongoing skilled physical therapy for flexibility and strengthening PLAN FOR NEXT VISIT: Continue with AROM , add ER stretch SUBJECTIVE: Patient Reason for Visit: Patient reports The shoulder is a little achy in the morning but that goes away quick. Pt is able to now wash her hair. Pain: Pain Pain Level: 0 Pain Location: Shoulder - Left Post Treatment Pain Post Treatment Pain Level: 0 Post Treatment Pain Location: Shoulder - Left OBJECTIVE MEASURES WITH LEVEL OF FUNCTION: UE AROM L Shoulder Flex: 128 Degrees L Shoulder ABduction: 105 Degrees L Shoulder Internal Rotation (Functional): L1 L Shoulder External Rotation (Functional): C4 TREATMENT: Therapeutic Exercise: 1: Nida flexion, scaption 3 sec hold x 15 each 2: Scifit , seat 7 , 4 minutes change at half 3: Active flexion alternate x 5 4: simulatanouoes abduction 5: wall walk into flexion and abduction 5 x 5 seconds 6: L shoulder isometrics, all planes 5 x 5 seconds 7: Nida IR 10 x 5 seconds 10: scapula retraction x 15 Skilled Intervention: Patient was educated in proper exercise technique and purpose for exercises. Skilled judgment was provided in selection of appropriate interventions. Correct performance of therapeutic exercises was facilitated with verbal and visual cuing. Manual Therapy: 1: L upward rotation scapula mobs 2: STM's to L UT 3: L GH gentle distraction with passive flexion abduction and ER with gentle end stretching Skilled Intervention: Manual skills to improve joint mobility, ROM, and decrease pain. Utilized anatomy knowledge of the therapist, and assessment of patient's response to intervention. Billing: [place]: Therapeutic Exercise ([id number]): 1:1 time: 32 minutes (2 units: 23-37 mins) Manual Therapy ([id number]): 1:1 time: 14 minutes (1 unit: 8-22 mins) Total time / Length of visit: 47 minutes Jannet Ramos PTA -------- Normal [facility] PROGRESSon 03-15-2020 PROGRESS HNO ID: [id number] Author: Jannet Ramos Service: ? Author Type: [employer] Type: Progress Notes Filed: 03/15/2020 5:56 PM Note Text: Episode Visit Count: 7 Therapist That Will Oversee The Plan Of Care: Hima Molina Start of Care Date: 02/18/20 Onset Date: 01/07/20 REHABILITATION AND SPORTS THERAPY PHYSICAL THERAPY TREATMENT NOTE ASSESSMENT: Danay Thompson demonstrated difficulty initially with avoiding substitution with IR behind back. Patient is able to progress into active flexion and abduction versus gravity. The patient will continue to benefit from ongoing skilled physical therapy for flexibility and strengthening PLAN FOR NEXT VISIT: Continue with AROM , add ER stretch SUBJECTIVE: Patient Reason for Visit: Patient reports The shoulder is a little achy in the morning but that goes away quick. Pt is able to now wash her hair. Pain: Pain Pain Level: 0 Pain Location: Shoulder - Left Post Treatment Pain Post Treatment Pain Level: 0 Post Treatment Pain Location: Shoulder - Left OBJECTIVE MEASURES WITH LEVEL OF FUNCTION: UE AROM L Shoulder Flex: 128 Degrees L Shoulder ABduction: 105 Degrees L Shoulder Internal Rotation (Functional): L1 L Shoulder External Rotation (Functional): C4 TREATMENT: Therapeutic Exercise: 1: Nida flexion, scaption 3 sec hold x 15 each 2: Scifit , seat 7 , 4 minutes change at half 3: Active flexion alternate x 5 4: simulatanouoes abduction 5: wall walk into flexion and abduction 5 x 5 seconds 6: L shoulder isometrics, all planes 5 x 5 seconds 7: Nida IR 10 x 5 seconds 10: scapula retraction x 15 Skilled Intervention: Patient was educated in proper exercise technique and purpose for exercises. Skilled judgment was provided in selection of appropriate interventions. Correct performance of therapeutic exercises was facilitated with verbal and visual cuing. Manual Therapy: 1: L upward rotation scapula mobs 2: STM's to L UT 3: L GH gentle distraction with passive flexion abduction and ER with gentle end stretching Skilled Intervention: Manual skills to improve joint mobility, ROM, and decrease pain. Utilized anatomy knowledge of the therapist, and assessment of patient's response to intervention. Julio C: Sue: Therapeutic Exercise ([id number]): 1:1 time: 32 minutes (2 units: 23-37 mins) Manual Therapy ([id number]): 1:1 time: 14 minutes (1 unit: 8-22 mins) Total time / Length of visit: 47 minutes Jannet Ramos [facility] CNTHERAPYon 03-10-2020 CNTHERAPY OT/PT/Speech Visit (PTMDRG) -------- DANAY THOMPSON ([id number]) 1960 F Date Time Provider Department 03/10/20 2:00 PM AISHWARYA MOFFETT ([facility]) PTMDRG Date Time Provider Department Center 03/10/2020 2:00 PM [id number], LAURA *PTMDRG [facility] Reason for Visit: Physical Therapy [503] Primary Visit Diagnosis:Shoulder stiffness, left [M25.612] Other Visit Diagnosis:Weakness of left arm [R29.898] Allergies As of Date: 03/10/2020 (No Known Allergies) Date Reviewed: 03/24/2009 Reviewed by: Davina Albert Lpn - Reviewed Prescriptions as of 03/10/2020 Sig: FISH OIL 500 MG CAPSULE Take one(1) capsule daily. MULTIVITAMIN TABLET Take one(1) tablet daily. FOLIC ACID 1 MG TABLET Take one (1) tablet daily. LEXAPRO 10 MG TABLET SYNTHROID 112 MCG TABLET Take one(1) tablet daily. ARIMIDEX 1 MG TABLET Progress Notes: Aishwarya Moffett PTA 03/10/2020 3:02 PM Signed Episode Visit Count: 6 Therapist That Will Oversee The Plan Of Care: Hima Molina Start of Care Date: 02/18/20 Onset Date: 01/07/20 Patient Identified by Name and Date of : Yes REHABILITATION AND SPORTS THERAPY PHYSICAL THERAPY TREATMENT NOTE ASSESSMENT: Danay Tesfayelson demonstrated improved left shoulder strength without soreness. Tactile cuing to correct left elevated shoulder with exercises. No pain performing UBE. Left shoulder PROM flexion 145 deg was 143 deg, abduction 105 deg , no change. Anterior left shoulder pain with PROM. The patient will continue to benefit from ongoing skilled physical therapy to improve left shoulder PROM. PLAN FOR NEXT VISIT: continue left shoulder AA/PROM SUBJECTIVE: Patient Reason for Visit: Patient reports went home After last visit and performed addition HEP. Woke that night with increased left shoulder pain, ice and pain went away. Left shoulder stiff today. Pain: Pain Pain Level: 1 Pain Location: Shoulder - Left Description: Stiffness Frequency: Continuous Post Treatment Pain Post Treatment Pain Level: 0 Post Treatment Pain Location: Shoulder - Left Post Treatment Pain Description: Stiffness OBJECTIVE MEASURES WITH LEVEL OF FUNCTION: UE PROM L Shoulder Flex: 145 Degrees(was 143) L Shoulder ABduction: 105 Degrees(no change) 9 weeks post L RC repair dec 2 TREATMENT: Therapeutic Exercise: 1: Nida flexion, scaption 3 sec hold x 15 each 4: SCifit UBE seat 7 , R1.0 , 4 minutes forward , 1 minute retro 5: wall wash CW/CCW 2 x 5 each 7: wall wash left scaption x 15 9: posterior shoulder rolls x 15 10: scapula retraction x 15 Skilled Intervention: Patient was educated in proper exercise technique and purpose for exercises. Skilled judgment was provided in selection of appropriate interventions. Provided written instruction for home exercise program to facilitate proper performance and compliance. Manual Therapy: 2: side lying right, left scapula medial mobilization 3: Soft tissue mobility to right upper/mid trapezius, pectoralis major/minor 4: Passive shoulder ROM right shoulder flexion, abduction, IR/ER Skilled Intervention: Manual skills to improve joint mobility, ROM, and decrease pain. Utilized anatomy knowledge of the therapist, and assessment of patient's response to intervention. Billing: Sue: Therapeutic Exercise ([id number]): 1:1 time: 25 minutes (2 units: 23-37 mins) Manual Therapy ([id number]): 1:1 time: 13 minutes (1 unit: 8-22 mins) Total time / Length of visit: 40 minutes Aishwarya Moffett PTA -------- [facility] PROGRESSon 03-10-2020 PROGRESS HNO ID: [id number] Author: Aishwarya Moffett Service: ? Author Type: [employer] Type: Progress Notes Filed: 03/10/2020 3:02 PM Note Text: Episode Visit Count: 6 Therapist That Will Oversee The Plan Of Care: Hima Molina Start of Care Date: 02/18/20 Onset Date: 01/07/20 Patient Identified by Name and Date of : Yes REHABILITATION AND SPORTS THERAPY PHYSICAL THERAPY TREATMENT NOTE ASSESSMENT: Danay Thompson demonstrated improved left shoulder strength without soreness. Tactile cuing to correct left elevated shoulder with exercises. No pain performing UBE. Left shoulder PROM flexion 145 deg was 143 deg, abduction 105 deg , no change. Anterior left shoulder pain with PROM. The patient will continue to benefit from ongoing skilled physical therapy to improve left shoulder PROM. PLAN FOR NEXT VISIT: continue left shoulder AA/PROM SUBJECTIVE: Patient Reason for Visit: Patient reports went home After last visit and performed addition HEP. Woke that night with increased left shoulder pain, ice and pain went away. Left shoulder stiff today. Pain: Pain Pain Level: 1 Pain Location: Shoulder - Left Description: Stiffness Frequency: Continuous Post Treatment Pain Post Treatment Pain Level: 0 Post Treatment Pain Location: Shoulder - Left Post Treatment Pain Description: Stiffness OBJECTIVE MEASURES WITH LEVEL OF FUNCTION: UE PROM L Shoulder Flex: 145 Degrees(was 143) L Shoulder ABduction: 105 Degrees(no change) 9 weeks post L RC repair dec TREATMENT: Therapeutic Exercise: 1: Nida flexion, scaption 3 sec hold x 15 each 4: SCifit UBE seat 7 , R1.0 , 4 minutes forward , 1 minute retro 5: wall wash CW/CCW 2 x 5 each 7: wall wash left scaption x 15 9: posterior shoulder rolls x 15 10: scapula retraction x 15 Skilled Intervention: Patient was educated in proper exercise technique and purpose for exercises. Skilled judgment was provided in selection of appropriate interventions. Provided written instruction for home exercise program to facilitate proper performance and compliance. Manual Therapy: 2: side lying right, left scapula medial mobilization 3: Soft tissue mobility to right upper/mid trapezius, pectoralis major/minor 4: Passive shoulder ROM right shoulder flexion, abduction, IR/ER Skilled Intervention: Manual skills to improve joint mobility, ROM, and decrease pain. Utilized anatomy knowledge of the therapist, and assessment of patient's response to intervention. Billing: Sue: Therapeutic Exercise ([id number]): 1:1 time: 25 minutes (2 units: 23-37 mins) Manual Therapy ([id number]): 1:1 time: 13 minutes (1 unit: 8-22 mins) Total time / Length of visit: 40 minutes Aishwarya Moffett [facility] CNTHERAPYon 03-08-2020 CNTHERAPY OT/PT/Speech Visit (PTMDRG) -------- DANAY THOMPSON ([id number]) 1960 F Date Time Provider Department 03/08/20 1:45 PM AISHWARYA MOFFETT ([facility] PTMDRG Date Time Provider Department Center 03/08/2020 1:45 PM [id number], LAURA *PTMDRG [facility] Reason for Visit: Physical Therapy [503] Primary Visit Diagnosis:Shoulder stiffness, left [M25.612] Other Visit Diagnosis:Weakness of left arm [R29.898] Allergies As of Date: 03/08/2020 (No Known Allergies) Date Reviewed: 03/24/2009 Reviewed by: Davina Albert Lpn - Reviewed Prescriptions as of 03/08/2020 Sig: FISH OIL 500 MG CAPSULE Take one(1) capsule daily. MULTIVITAMIN TABLET Take one(1) tablet daily. FOLIC ACID 1 MG TABLET Take one (1) tablet daily. LEXAPRO 10 MG TABLET SYNTHROID 112 MCG TABLET Take one(1) tablet daily. ARIMIDEX 1 MG TABLET Progress Notes: Aishwarya Moffett PTA 03/08/2020 2:40 PM Signed Episode Visit Count: 5 Therapist That Will Oversee The Plan Of Care: Hima Molina Start of Care Date: 02/18/20 Onset Date: 01/07/20 Patient Identified by Name and Date of : Yes REHABILITATION AND SPORTS THERAPY PHYSICAL THERAPY TREATMENT NOTE ASSESSMENT: Danay Thompson demonstrated no soreness progressing isometric left shoulder strength, added to HEP. Left shoulder passive flexion improved from 135 deg to 143 deg. Pain end range PROM left shoulder. The patient will continue to benefit from ongoing skilled physical therapy to improve left shoulder ROM. PLAN FOR NEXT VISIT: continue left shoulder PROM, add UBE SUBJECTIVE: Patient Reason for Visit: Patient reports left shoulder sore after last visit for couple hours. Compliant with HEP. Pain: Pain Pain Level: 1 Pain Location: Shoulder - Left Description: Aching Frequency: Intermittent Post Treatment Pain Post Treatment Pain Level: 2 Post Treatment Pain Location: Shoulder - Left Post Treatment Pain Description: Aching OBJECTIVE MEASURES WITH LEVEL OF FUNCTION: UE PROM L Shoulder Flex: 143 Degrees(was 135) L Shoulder ABduction: 105 Degrees(115) TREATMENT: Therapeutic Exercise: 1: Nida flexion, scaption 3 sec hold x 15 each 2: wand extension 15 x 5 seconds 3: wand IR 15 x 5 seconds 5: wall wash CW/CCW 2 x 5 each 7: wall wash keft scaption x 10 11: L shoulder isometric flexion, extension add 5 sec hold x 10 12: *L shoulder isometric abd. IR,ER 5 sec hold x 10 13: supine wand flexion 5 sec hold x 10 Skilled Intervention: Patient was educated in proper exercise technique and purpose for exercises. Reviewed and educated patient on additions/changes for home exercise program as above (*) Skilled judgment was provided in selection of appropriate interventions. Provided written instruction for home exercise program to facilitate proper performance and compliance. Correct performance of therapeutic exercises was facilitated with verbal, visual and tactile cuing. Manual Therapy: 3: Soft tissue mobility to right upper/mid trapezius, pectoralis major/minor 4: Passive shoulder ROM right shoulder flexion, abduction, IR/ER 5: Scapular mobilization right medial/lateral Skilled Intervention: Manual skills to improve joint mobility, ROM, and decrease pain. Utilized anatomy knowledge of the therapist, and assessment of patient's response to intervention. Billing: Sue: Therapeutic Exercise ([id number]): 1:1 time: 28 minutes (2 units: 23-37 mins) Manual Therapy ([id number]): 1:1 time: 10 minutes (1 unit: 8-22 mins) Total time / Length of visit: 40 minutes Aishwarya Moffett PTA -------- [facility] PROGRESSon 03-08-2020 PROGRESS HNO ID: [id number] Author: Aishwarya Moffett Service: ? Author Type: [employer] Type: Progress Notes Filed: 03/08/2020 2:40 PM Note Text: Episode Visit Count: 5 Therapist That Will Oversee The Plan Of Care: Hima Molnia Start of Care Date: 02/18/20 Onset Date: 01/07/20 Patient Identified by Name and Date of : Yes REHABILITATION AND SPORTS THERAPY PHYSICAL THERAPY TREATMENT NOTE ASSESSMENT: Danay Thompson demonstrated no soreness progressing isometric left shoulder strength, added to HEP. Left shoulder passive flexion improved from 135 deg to 143 deg. Pain end range PROM left shoulder. The patient will continue to benefit from ongoing skilled physical therapy to improve left shoulder ROM. PLAN FOR NEXT VISIT: continue left shoulder PROM, add UBE SUBJECTIVE: Patient Reason for Visit: Patient reports left shoulder sore after last visit for couple hours. Compliant with HEP. Pain: Pain Pain Level: 1 Pain Location: Shoulder - Left Description: Aching Frequency: Intermittent Post Treatment Pain Post Treatment Pain Level: 2 Post Treatment Pain Location: Shoulder - Left Post Treatment Pain Description: Aching OBJECTIVE MEASURES WITH LEVEL OF FUNCTION: UE PROM L Shoulder Flex: 143 Degrees(was 135) L Shoulder ABduction: 105 Degrees(115) TREATMENT: Therapeutic Exercise: 1: Nida flexion, scaption 3 sec hold x 15 each 2: wand extension 15 x 5 seconds 3: wand IR 15 x 5 seconds 5: wall wash CW/CCW 2 x 5 each 7: wall wash keft scaption x 10 11: L shoulder isometric flexion, extension add 5 sec hold x 10 12: *L shoulder isometric abd. IR,ER 5 sec hold x 10 13: supine wand flexion 5 sec hold x 10 Skilled Intervention: Patient was educated in proper exercise technique and purpose for exercises. Reviewed and educated patient on additions/changes for home exercise program as above (*) Skilled judgment was provided in selection of appropriate interventions. Provided written instruction for home exercise program to facilitate proper performance and compliance. Correct performance of therapeutic exercises was facilitated with verbal, visual and tactile cuing. Manual Therapy: 3: Soft tissue mobility to right upper/mid trapezius, pectoralis major/minor 4: Passive shoulder ROM right shoulder flexion, abduction, IR/ER 5: Scapular mobilization right medial/lateral Skilled Intervention: Manual skills to improve joint mobility, ROM, and decrease pain. Utilized anatomy knowledge of the therapist, and assessment of patient's response to intervention. [place]: Sue: Therapeutic Exercise ([id number]): 1:1 time: 28 minutes (2 units: 23-37 mins) Manual Therapy ([id number]): 1:1 time: 10 minutes (1 unit: 8-22 mins) Total time / Length of visit: 40 minutes Aishwarya Moffett [facility] CNTHERAPYon 03-03-2020 CNTHERAPY OT/PT/Speech Visit (PTMDRG) -------- DANAY THOMPSON ([id number]) 1960 F Date Time Provider Department 03/03/20 3:30 PM AISHWARYA MOFFETT ([facility] PTMDRG Date Time Provider Department Center 03/03/2020 3:30 PM [id number], LAURA *PTMDRG [facility] Reason for Visit: Physical Therapy [503] Primary Visit Diagnosis:Shoulder stiffness, left [M25.612] Other Visit Diagnosis:Weakness of left arm [R29.898] Allergies As of Date: 03/03/2020 (No Known Allergies) Date Reviewed: 03/24/2009 Reviewed by: Davina Albert Lpn - Reviewed Prescriptions as of 03/03/2020 Sig: FISH OIL 500 MG CAPSULE Take one(1) capsule daily. MULTIVITAMIN TABLET Take one(1) tablet daily. FOLIC ACID 1 MG TABLET Take one (1) tablet daily. LEXAPRO 10 MG TABLET SYNTHROID 112 MCG TABLET Take one(1) tablet daily. ARIMIDEX 1 MG TABLET Progress Notes: Aishwarya Moffett PTA 03/03/2020 4:31 PM Signed Episode Visit Count: 4 Therapist That Will Oversee The Plan Of Care: Hima Molina Start of Care Date: 02/18/20 Onset Date: 01/07/20 Patient Identified by Name and Date of : Yes REHABILITATION AND SPORTS THERAPY PHYSICAL THERAPY TREATMENT NOTE ASSESSMENT: Danay Thompson demonstrated left shoulder elevation and lumbar lateral flexion lifting left arm overhead. Patient instructed not to lift gallon of milk. Decreased left shoulder flexion from 139 deg to 135 deg, pain end range. Tender in left biceps with Soft tissue mobility. Improved left shoulder abduction from 90 deg to 115 deg, pain end range. Noted decreased left scapula mobility. Added isometric left shoulder strength to HEP. The patient will continue to benefit from ongoing skilled physical therapy to improve left shoulder PROM, AAROM, AROM. PLAN FOR NEXT VISIT: continue left shoulder PROM SUBJECTIVE: Patient Reason for Visit: Pt reports left shoulder sore for one day after last visit. No pain or sorness today. Pt reports lifting gallon of milk. Pain: Pain Pain Level: 0 Pain Location: Shoulder - Left Post Treatment Pain Post Treatment Pain Level: 1 Post Treatment Pain Location: Shoulder - Left Post Treatment Pain Description: Aching OBJECTIVE MEASURES WITH LEVEL OF FUNCTION: UE PROM L Shoulder Flex: 135 Degrees(was 139) L Shoulder ABduction: 115 Degrees( was 90) TREATMENT: Therapeutic Exercise: 1: Nida, flexion and scaption 10 x 5 seconds each 2: wand extension 15 x 5 seconds 3: wand IR 15 x 5 seconds 4: stand wand L abduction x 10 5: *wall wash shoulder flexion, left scaption x 10 6: Supine wand ER 15 9: posterior shoulder rolls x 15 10: scapula retraction x 15 11: *L shoulder isometric flexion, extension add 5 sec hold x 10 Skilled Intervention: Patient was educated in proper exercise technique and purpose for exercises. Reviewed and educated patient on additions/changes for home exercise program as above (*) Skilled judgment was provided in selection of appropriate interventions. Provided written instruction for home exercise program to facilitate proper performance and compliance. Correct performance of therapeutic exercises was facilitated with verbal, visual and tactile cuing. Manual Therapy: 3: Soft tissue mobility to right upper/mid trapezius, pectoralis major/minor 4: Passive shoulder ROM right shoulder flexion, abduction, IR/ER 5: Scapular mobilization right medial/lateral Skilled Intervention: Manual skills to improve joint mobility, ROM, and decrease pain. Utilized anatomy knowledge of the therapist, and assessment of patient's response to intervention. Buddy [facility]: Therapeutic Exercise ([id number]): 1:1 time: 25 minutes (2 units: 23-37 mins) Manual Therapy ([id number]): 1:1 time: 15 minutes (1 unit: 8-22 mins) Total time / Length of visit: 42 minutes Aishwarya Moffett PTA -------- [facility] PROGRESSon 03-03-2020 PROGRESS HNO ID: [id number] Author: Aishwarya Moffett Service: ? Author Type: [employer] Type: Progress Notes Filed: 03/03/2020 4:31 PM Note Text: Episode Visit Count: 4 Therapist That Will Oversee The Plan Of Care: Hima Molina Start of Care Date: 02/18/20 Onset Date: 01/07/20 Patient Identified by Name and Date of : Yes REHABILITATION AND SPORTS THERAPY PHYSICAL THERAPY TREATMENT NOTE ASSESSMENT: Danay Thompson demonstrated left shoulder elevation and lumbar lateral flexion lifting left arm overhead. Patient instructed not to lift gallon of milk. Decreased left shoulder flexion from 139 deg to 135 deg, pain end range. Tender in left biceps with Soft tissue mobility. Improved left shoulder abduction from 90 deg to 115 deg, pain end range. Noted decreased left scapula mobility. Added isometric left shoulder strength to HEP. The patient will continue to benefit from ongoing skilled physical therapy to improve left shoulder PROM, AAROM, AROM. PLAN FOR NEXT VISIT: continue left shoulder PROM SUBJECTIVE: Patient Reason for Visit: Pt reports left shoulder sore for one day after last visit. No pain or sorness today. Pt reports lifting gallon of milk. Pain: Pain Pain Level: 0 Pain Location: Shoulder - Left Post Treatment Pain Post Treatment Pain Level: 1 Post Treatment Pain Location: Shoulder - Left Post Treatment Pain Description: Aching OBJECTIVE MEASURES WITH LEVEL OF FUNCTION: UE PROM L Shoulder Flex: 135 Degrees(was 139) L Shoulder ABduction: 115 Degrees( was 90) TREATMENT: Therapeutic Exercise: 1: Nida, flexion and scaption 10 x 5 seconds each 2: wand extension 15 x 5 seconds 3: wand IR 15 x 5 seconds 4: stand wand L abduction x 10 5: *wall wash shoulder flexion, left scaption x 10 6: Supine wand ER 15 9: posterior shoulder rolls x 15 10: scapula retraction x 15 11: *L shoulder isometric flexion, extension add 5 sec hold x 10 Skilled Intervention: Patient was educated in proper exercise technique and purpose for exercises. Reviewed and educated patient on additions/changes for home exercise program as above (*) Skilled judgment was provided in selection of appropriate interventions. Provided written instruction for home exercise program to facilitate proper performance and compliance. Correct performance of therapeutic exercises was facilitated with verbal, visual and tactile cuing. Manual Therapy: 3: Soft tissue mobility to right upper/mid trapezius, pectoralis major/minor 4: Passive shoulder ROM right shoulder flexion, abduction, IR/ER 5: Scapular mobilization right medial/lateral Skilled Intervention: Manual skills to improve joint mobility, ROM, and decrease pain. Utilized anatomy knowledge of the therapist, and assessment of patient's response to intervention. Billing: [facility]: Therapeutic Exercise ([id number]): 1:1 time: 25 minutes (2 units: 23-37 mins) Manual Therapy ([id number]): 1:1 time: 15 minutes (1 unit: 8-22 mins) Total time / Length of visit: 42 minutes Aishwarya Moffett PTA [facility] CNTHERAPYon 02-27-2020 CNTHERAPY OT/PT/Speech Visit (PTMDRG) -------- DANAY THOMPSON ([id number]) 1960 F Date Time Provider Department 02/27/20 3:30 PM AISHWARYA MOFFETT ([facility]) PTMDRG Date Time Provider Department [place] 02/27/2020 3:30 PM [id number], LAURA *PTMDRG [facility] Reason for Visit: Physical Therapy [503] Primary Visit Diagnosis:Shoulder stiffness, left [M25.612] Other Visit Diagnosis:Weakness of left arm [R29.898] Allergies As of Date: 02/27/2020 (No Known Allergies) Date Reviewed: 03/24/2009 Reviewed by: Davina Albert Lpn - Reviewed Prescriptions as of 02/27/2020 Sig: FISH OIL 500 MG CAPSULE Take one(1) capsule daily. MULTIVITAMIN TABLET Take one(1) tablet daily. FOLIC ACID 1 MG TABLET Take one (1) tablet daily. LEXAPRO 10 MG TABLET SYNTHROID 112 MCG TABLET Take one(1) tablet daily. ARIMIDEX 1 MG TABLET Progress Notes: Aishwarya Moffett PTA 02/27/2020 4:21 PM Signed Episode Visit Count: 3 Therapist That Will Oversee The Plan Of Care: Hima Molina Start of Care Date: 02/18/20 Onset Date: 01/07/20 Patient Identified by Name and Date of : Yes REHABILITATION AND SPORTS THERAPY PHYSICAL THERAPY TREATMENT NOTE ASSESSMENT: Danay Thompson demonstrated improved left shoulder AROM flexion from 128 deg to 139 deg, abduction 90 deg. Decreased scapula mobility. Noted left shoulder elevation performing AAROM. The patient will continue to benefit from ongoing skilled physical therapy to improve left shoulder ROM. PLAN FOR NEXT VISIT: continue PROM left shoulder , scapula SUBJECTIVE: Patient Reason for Visit: Patient reports left shoulder pain in morning. Performing nida once a day. Working. Pain: Pain Pain Level: 1 Pain Location: Shoulder - Left Description: Aching Frequency: Intermittent Post Treatment Pain Post Treatment Pain Level: 0 Post Treatment Pain Location: Shoulder - Left Post Treatment Pain Description: Aching OBJECTIVE MEASURES WITH LEVEL OF FUNCTION: UE PROM L Shoulder Flex: 139 Degrees(was 128) L Shoulder ABduction: 90 Degrees 7 weeks post L RC repair feb 24 TREATMENT: Therapeutic Exercise: 1: Nida flexion, scaption 3 sec hold x 15 each 2: wand extension 15 x 5 seconds 3: wand IR 15 x 5 seconds 4: stand wand L abduction x 10 6: Supine wand ER 15 9: posterior shoulder rolls x 15 10: scapula retraction x 15 Skilled Intervention: Patient was educated in proper exercise technique and purpose for exercises. Reviewed and educated patient on additions/changes for home exercise program as above (*) Skilled judgment was provided in selection of appropriate interventions. Provided written instruction for home exercise program to facilitate proper performance and compliance. Correct performance of therapeutic exercises was facilitated with verbal, visual and tactile cuing. Manual Therapy: 3: Soft tissue mobility to right upper/mid trapezius, pectoralis major/minor 4: Passive shoulder ROM right shoulder flexion, abduction, IR/ER 5: Scapular mobilization right medial/lateral Skilled Intervention: Manual skills to improve joint mobility, ROM, and decrease pain. Utilized anatomy knowledge of the therapist, and assessment of patient's response to intervention. Billing: [facility]: Therapeutic Exercise ([id number]): 1:1 time: 23 minutes (2 units: 23-37 mins) Manual Therapy ([id number]): 1:1 time: 15 minutes (1 unit: 8-22 mins) Total time / Length of visit: 40 minutes Aishwarya Moffett PTA -------- [facility] PROGRESSon 02-27-2020 PROGRESS HNO ID: [id number] Author: Aishwarya (Terrence) Zuhair Service: ? Author Type: [employer] Type: Progress Notes Filed: 02/27/2020 4:21 PM Note Text: Episode Visit Count: 3 Therapist That Will Oversee The Plan Of Care: Hima Molina Start of Care Date: 02/18/20 Onset Date: 01/07/20 Patient Identified by Name and Date of : Yes REHABILITATION AND SPORTS THERAPY PHYSICAL THERAPY TREATMENT NOTE ASSESSMENT: Danay Thompson demonstrated improved left shoulder AROM flexion from 128 deg to 139 deg, abduction 90 deg. Decreased scapula mobility. Noted left shoulder elevation performing AAROM. The patient will continue to benefit from ongoing skilled physical therapy to improve left shoulder ROM. PLAN FOR NEXT VISIT: continue PROM left shoulder , scapula SUBJECTIVE: Patient Reason for Visit: Patient reports left shoulder pain in morning. Performing nida once a day. Working. Pain: Pain Pain Level: 1 Pain Location: Shoulder - Left Description: Aching Frequency: Intermittent Post Treatment Pain Post Treatment Pain Level: 0 Post Treatment Pain Location: Shoulder - Left Post Treatment Pain Description: Aching OBJECTIVE MEASURES WITH LEVEL OF FUNCTION: UE PROM L Shoulder Flex: 139 Degrees(was 128) L Shoulder ABduction: 90 Degrees 7 weeks post L RC repair feb 24 TREATMENT: Therapeutic Exercise: 1: Nida flexion, scaption 3 sec hold x 15 each 2: wand extension 15 x 5 seconds 3: wand IR 15 x 5 seconds 4: stand wand L abduction x 10 6: Supine wand ER 15 9: posterior shoulder rolls x 15 10: scapula retraction x 15 Skilled Intervention: Patient was educated in proper exercise technique and purpose for exercises. Reviewed and educated patient on additions/changes for home exercise program as above (*) Skilled judgment was provided in selection of appropriate interventions. Provided written instruction for home exercise program to facilitate proper performance and compliance. Correct performance of therapeutic exercises was facilitated with verbal, visual and tactile cuing. Manual Therapy: 3: Soft tissue mobility to right upper/mid trapezius, pectoralis major/minor 4: Passive shoulder ROM right shoulder flexion, abduction, IR/ER 5: Scapular mobilization right medial/lateral Skilled Intervention: Manual skills to improve joint mobility, ROM, and decrease pain. Utilized anatomy knowledge of the therapist, and assessment of patient's response to intervention. Billing: Sue: Therapeutic Exercise ([id number]): 1:1 time: 23 minutes (2 units: 23-37 mins) Manual Therapy ([id number]): 1:1 time: 15 minutes (1 unit: 8-22 mins) Total time / Length of visit: 40 minutes Aishwarya Moffett PTA [facility] CNTHERAPYon 02-25-2020 CNTHERAPY OT/PT/Speech Visit (PTMDRG) -------- DANAY THOMPSON ([id number]) 1960 F Date Time Provider Department 02/25/20 2:45 PM JANNET RAMOS ([facility]) PTMDRG Date Time Provider Department [place] 02/25/2020 2:45 PM [id number], SUSAN *PTMDRG [facility] Reason for Visit: Physical Therapy [503] Primary Visit Diagnosis:Shoulder stiffness, left [M25.612] Other Visit Diagnosis:Weakness of left arm [R29.898] Allergies As of Date: 02/25/2020 (No Known Allergies) Date Reviewed: 03/24/2009 Reviewed by: Davina Albert Lpn - Reviewed Prescriptions as of 02/25/2020 Sig: FISH OIL 500 MG CAPSULE Take one(1) capsule daily. MULTIVITAMIN TABLET Take one(1) tablet daily. FOLIC ACID 1 MG TABLET Take one (1) tablet daily. LEXAPRO 10 MG TABLET SYNTHROID 112 MCG TABLET Take one(1) tablet daily. ARIMIDEX 1 MG TABLET Progress Notes: Jannet Ramos PTA 02/25/2020 7:28 PM Signed Episode Visit Count: 2 Therapist That Will Oversee The Plan Of Care: Hima Molina Start of Care Date: 02/18/20 Onset Date: 01/07/20 Patient Identified by Name and Date of : Yes REHABILITATION AND SPORTS THERAPY PHYSICAL THERAPY TREATMENT NOTE ASSESSMENT: Danayct Thompson demonstrated limited active assisted flexion. Patient able to progress to extension abduction and IR without increased discomfort. The patient will continue to benefit from ongoing skilled physical therapy for flexibilty PLAN FOR NEXT VISIT: Continue with phase II SUBJECTIVE: Patient Reason for Visit: Patient reports I am a little achy in the morning. Patient is doing exercises daily. Pain: Pain Pain Level: 0 Pain Location: Shoulder - Left Post Treatment Pain Post Treatment Pain Level: No Change OBJECTIVE MEASURES WITH LEVEL OF FUNCTION: UE PROM L Shoulder Flex: 128 Degrees L Shoulder External Rotation: 28 Degrees TREATMENT: Therapeutic Exercise: 1: Nida, flexion and scaption 10 x 5 seconds each 2: *wand extension 10 x 5 seconds 3: *wand IR 10 x 5 seconds 4: *wand abduction 10 x 5 seconds 5: *shoulder flexion AAROm, supin with wand, 2 x 15 6: Supine wand ER 10 x 2 7: scap squeeze 10 x 5 seconds Skilled Intervention: Patient was educated in proper exercise technique and purpose for exercises. Reviewed and educated patient on additions/changes for home exercise program as above (*) Skilled judgment was provided in selection of appropriate interventions. Correct performance of therapeutic exercises was facilitated with verbal and visual cuing. Manual Therapy: 1: STM's to L UT and anterior shoulder 2: L GH gentle long axis distraction with PROM into flexion scaption and ER with gentle end stretching Skilled Intervention: Manual skills to improve joint mobility, ROM, and decrease pain. Utilized anatomy knowledge of the therapist, and assessment of patient's response to intervention. Billing: [place]: Therapeutic Exercise ([id number]): 1:1 time: 28 minutes (2 units: 23-37 mins) Manual Therapy ([id number]): 1:1 time: 12 minutes (1 unit: 8-22 mins) Total time / Length of visit: 40 minutes Jannet Ramos PTA -------- [facility] PROGRESSon 02-25-2020 PROGRESS HNO ID: [id number] Author: Jannet Zendejas) [facility] Service: ? Author Type: [employer] Type: Progress Notes Filed: 02/25/2020 7:28 PM Note Text: Episode Visit Count: 2 Therapist That Will Oversee The Plan Of Care: Hima Molina Start of Care Date: 02/18/20 Onset Date: 01/07/20 Patient Identified by Name and Date of : Yes REHABILITATION AND SPORTS THERAPY PHYSICAL THERAPY TREATMENT NOTE ASSESSMENT: Danay Thompson demonstrated limited active assisted flexion. Patient able to progress to extension abduction and IR without increased discomfort. The patient will continue to benefit from ongoing skilled physical therapy for flexibilty PLAN FOR NEXT VISIT: Continue with phase II SUBJECTIVE: Patient Reason for Visit: Patient reports I am a little achy in the morning. Patient is doing exercises daily. Pain: Pain Pain Level: 0 Pain Location: Shoulder - Left Post Treatment Pain Post Treatment Pain Level: No Change OBJECTIVE MEASURES WITH LEVEL OF FUNCTION: UE PROM L Shoulder Flex: 128 Degrees L Shoulder External Rotation: 28 Degrees TREATMENT: Therapeutic Exercise: 1: Nida, flexion and scaption 10 x 5 seconds each 2: *wand extension 10 x 5 seconds 3: *wand IR 10 x 5 seconds 4: *wand abduction 10 x 5 seconds 5: *shoulder flexion AAROm, supin with wand, 2 x 15 6: Supine wand ER 10 x 2 7: scap squeeze 10 x 5 seconds Skilled Intervention: Patient was educated in proper exercise technique and purpose for exercises. Reviewed and educated patient on additions/changes for home exercise program as above (*) Skilled judgment was provided in selection of appropriate interventions. Correct performance of therapeutic exercises was facilitated with verbal and visual cuing. Manual Therapy: 1: STM's to L UT and anterior shoulder 2: L GH gentle long axis distraction with PROM into flexion scaption and ER with gentle end stretching Skilled Intervention: Manual skills to improve joint mobility, ROM, and decrease pain. Utilized anatomy knowledge of the therapist, and assessment of patient's response to intervention. Billing: [place]: Therapeutic Exercise ([id number]): 1:1 time: 28 minutes (2 units: 23-37 mins) Manual Therapy ([id number]): 1:1 time: 12 minutes (1 unit: 8-22 mins) Total time / Length of visit: 40 minutes Jannet Ramos PTA [facility] CNTHERAPYon 02-18-2020 CNTHERAPY OT/PT/Speech Visit (PTMDRG) -------- DANAY THOMPSON ([id number]) 1960 F Date Time Provider Department 02/18/20 1:30 PM HIMA MOLINA (PT) PTMDRG Date Time Provider Department Center 02/18/2020 1:30 PM [id number], SCOTT (P*PTMDRG [facility] Reason for Visit: PT Eval [747] Primary Visit Diagnosis:Shoulder stiffness, left [M25.612] Other Visit Diagnosis:Weakness of left arm [R29.898] Allergies As of Date: 02/18/2020 (No Known Allergies) Date Reviewed: 03/24/2009 Reviewed by: Davina Albert Lpn - Reviewed Prescriptions as of 02/18/2020 Sig: FISH OIL 500 MG CAPSULE Take one(1) capsule daily. MULTIVITAMIN TABLET Take one(1) tablet daily. FOLIC ACID 1 MG TABLET Take one (1) tablet daily. LEXAPRO 10 MG TABLET SYNTHROID 112 MCG TABLET Take one(1) tablet daily. ARIMIDEX 1 MG TABLET Progress Notes: Hima Molina PT 02/18/2020 3:32 PM Signed Episode Visit Count: 1 Therapist That Will Oversee The Plan Of Care: Hima Molina Start of Care Date: 02/18/20 Onset Date: 01/07/20 Patient Identified by Name and Date of : Yes REHABILITATION AND SPORTS THERAPY PHYSICAL THERAPY EVALUATION PLAN OF CARE: Assessment: Danay Thompson presents s/p L RC repair on 01/07/2020. Pt's sxs are well controlled and pt does not experience pain, pt's primary sx is stiffness. Pt's impairments include decreased shoulder mobility, decreased shoulder ROM, decreased shoulder strength, postural deficits, dysfunctional movement patterns, and upper quarter myofascial dysfunction. As a result of sxs/impairments, pt has decreased tolerance for functional use of L UE and sleeping. Based on history , examination(shoulder , ADLs, sleeping), presentation and clinical reasoning pt is appropriate for low complexity evaluation. Pt will benefit from skilled physical therapy to address impairments, postural re-ed, dynamic GH stabilization, manual therapy techniques and functional training to decrease pain/sxs to minimize functional limitations. Prognosis: Good Good due to: current objective clinical presentation Goals for Episode of Care: created on 02/18/20 through 03/19/20 Patient will improve L shoulder elevation AROM to > 120 ? and functional shoulder IR to upper lumbar region -Patient will improve L shoulder strength to > 4-5 in all planes --Patient will have no difficulty sleeping through the night without interruption from shoulder sxs -Patient will improve L shoulder PROM with in 80% of contralateral side [place] in home exercise program. Patient will decrease pain rating by 2 points to meet minimal clinical important difference for numeric pain rating scale. Patient Goals: decrease pain, improve tolerance for sleeping, restore functional use of L UE, ride motorycle Planned Interventions, Frequency, and Duration: Current Frequency: 2x/week Duration: 4 weeks Total Number of Visits Planned: 8 Planned Treatment Interventions: Therapeutic exercise;Neuromuscular re-education;Manual therapy;Therapeutic activities;Self-retirement management;Patient/Famil y/Caregiver Education;Body Mechanics Training;Functional training Patient demonstrates good understanding of plan of care and treatment. The above goals and plan of care were discussed and agreed upon by patient/family. SUBJECTIVE: Danay Thompson is a 59 year old female seen today for L RC repair. Pt was in a sling for 3 weeks initially then discontinued. Pt f/u with him at 6 weeks post op, pt had a good report from ortho, pt was instructed on AAROM/PROM exercises (per EPIC notes). Pt is on heavly lifting precautions and not to ride motorocyle no other precautions given. Pt has avoided a lot of movement with L shoulder. Per EPIC notes it seems that supraspiantus tendon was repair. Pt states that pain has been well controlled.Pt has hx of breast and skin cancer. Pt is currently working as an sanitation officer, pt is back to work. Patient Goals: decrease pain, improve tolerance for sleeping, restore functional use of L UE, ride motorycle Functional Limitations: Comments Functional Limitation Comments: lifting, carrying, reaching, ADLs, self care, motorcycle Prior Level of Function: Independent without limitations Intake Information: Prescription present Previous Treatment: Exercises per physician;Surgery?;Pain meds? Falls Interview: No positive findings with falls interview Aquatic Screen: No Pain: Pain Pain Level: 0(worst pain: minimal doesnt really hurt) Pain Location: Shoulder - Left Description: Aching Frequency: Intermittent Post Treatment Pain Post Treatment Pain Level: No Change PROMIS Scales T-scores: mean of general population = 50. 5 points is clinically meaningfully difference Percentiles provide an indication of how the patient's score ranks in relation to the general population. Higher percentile rankings indicate better function/quality of life. 50th percentile is the average of the general population and indicates half of respondents had a worse score. T-scores: mean of general population = 50. 5 points is clinically meaningfully difference Percentiles provide an indication of how the patient's score ranks in relation to the general population. Higher percentile rankings indicate better function/quality of life. 50th percentile is the average of the general population and indicates half of respondents had a worse score. OBJECTIVE MEASURES WITH LEVEL OF FUNCTION: Posture / Alignment Posture: Increased thoracic kyphosis;Forward head;Rounded shoulders Shoulder Observations L Shoulder Presents with: Incision Incision: normal signs of healing L Shoulder Palpation Tenderness: Trapezius Cervical Spine ROM Cervical ROM : Limitation AROM Cervical Flexion AROM: Minimal limitation Cervical Extension AROM: Minimal limitation Cervical Side-Bend Left AROM: Normal Cervical Rotation Right AROM: Normal UE AROM R Shoulder Flex: 140 Degrees R Shoulder Internal Rotation (Functional): T11, DN R Shoulder External Rotation: 35 Degrees L Shoulder Flex: 90 Degrees L Shoulder Internal Rotation (Functional): L5-S1 L Shoulder External Rotation: 20 Degrees UE PROM R Shoulder Flex: 170 Degrees R Shoulder ABduction: 170 Degrees R Shoulder Internal Rotation: 30 Degrees(at 90) R Shoulder External Rotation: 90 Degrees(at 90) L Shoulder Flex: 120 Degrees L Shoulder Internal Rotation: 45 Degrees(arm by side) L Shoulder External Rotation: 25 Degrees(arm by side) UE and Cervical Strength Strength Tested: Shoulder Functional Strength R Shoulder Flexion: 5/5 R Shoulder Abduction (C5): 5/5 R Shoulder Internal Rotation: 5/5 R Shoulder External Rotation: 5/5 L Shoulder Flexion: 3-/5 L Shoulder Abduction (C5): 3-/5 L Shoulder Internal Rotation: 3+/5 L Shoulder External Rotation: 3-/5 Education: Education Learning Preferences: Explanation;Demonstratio n;Printed Materials;Performance Barriers: None Learning/educational needs: Home exercise program;Plan of Care Education Provided: Yes, see treatment interventions for education provided Education Provided To: Patient Education Mode/Type: Demonstration;Explanatio n/Discussion;Performance ;Literature/Printed Materials Response to Education/Teach Back: States/Identifies TREATMENT: PT Treatment Interventions: Therapeutic Exercise Evaluation Therapeutic Exercise: 1: *shoulder press, supine with wand, 2 x 15 2: *pendulums, review, prescribed by surgeon 3: *shoulder flexion AAROM, arm slide, review, prescribed by surgeon 4: *shoulder ER AAROM, supine with cane, 3 sec hold, 2 x 15 5: *shoulder flexion AAROm, supin with wand, 2 x 15 Skilled Intervention: Patient was educated in proper exercise technique and purpose for exercises. Reviewed and educated patient on additions/changes for home exercise program as above (*) Billing: PT Services: Evaluation - Low Complexity ([id number]) Therapeutic Exercise ([id number]): 1:1 time: 15 minutes (1 unit: 8-22 mins) Total time: 40 minutes Hima Molina PT -------- [facility] PROGRESSon 02-18-2020 PROGRESS HNO ID: [id number] Author: Hima ArevaloPt) Jihan Service: ? Author Type: Physical Therapist Type: Progress Notes Filed: 02/18/2020 3:32 PM Note Text: Episode Visit Count: 1 Therapist That Will Oversee The Plan Of Care: Hima Molina Start of Care Date: 02/18/20 Onset Date: 01/07/20 Patient Identified by Name and Date of : Yes REHABILITATION AND SPORTS THERAPY PHYSICAL THERAPY EVALUATION PLAN OF CARE: Assessment: Danay Thompson presents s/p L RC repair on 01/07/2020. Pt's sxs are well controlled and pt does not experience pain, pt's primary sx is stiffness. Pt's impairments include decreased shoulder mobility, decreased shoulder ROM, decreased shoulder strength, postural deficits, dysfunctional movement patterns, and upper quarter myofascial dysfunction. As a result of sxs/impairments, pt has decreased tolerance for functional use of L UE and sleeping. Based on history , examination(shoulder , ADLs, sleeping), presentation and clinical reasoning pt is appropriate for low complexity evaluation. Pt will benefit from skilled physical therapy to address impairments, postural re-ed, dynamic GH stabilization, manual therapy techniques and functional training to decrease pain/sxs to minimize functional limitations. Prognosis: Good Good due to: current objective clinical presentation Goals for Episode of Care: created on 02/18/20 through 03/19/20 Patient will improve L shoulder elevation AROM to > 120 ? and functional shoulder IR to upper lumbar region -Patient will improve L shoulder strength to > 4-5 in all planes --Patient will have no difficulty sleeping through the night without interruption from shoulder sxs -Patient will improve L shoulder PROM with in 80% of contralateral side [place] in home exercise program. Patient will decrease pain rating by 2 points to meet minimal clinical important difference for numeric pain rating scale. Patient Goals: decrease pain, improve tolerance for sleeping, restore functional use of L UE, ride motorycle Planned Interventions, Frequency, and Duration: Current Frequency: 2x/week Duration: 4 weeks Total Number of Visits Planned: 8 Planned Treatment Interventions: Therapeutic exercise;Neuromuscular re-education;Manual therapy;Therapeutic activities;Self-retirement management;Patient/Famil y/Caregiver Education;Body Mechanics Training;Functional training Patient demonstrates good understanding of plan of care and treatment. The above goals and plan of care were discussed and agreed upon by patient/family. SUBJECTIVE: Danay Thompson is a 59 year old female seen today for L RC repair. Pt was in a sling for 3 weeks initially then discontinued. Pt f/u with him at 6 weeks post op, pt had a good report from ortho, pt was instructed on AAROM/PROM exercises (per EPIC notes). Pt is on heavly lifting precautions and not to ride motorocyle no other precautions given. Pt has avoided a lot of movement with L shoulder. Per EPIC notes it seems that supraspiantus tendon was repair. Pt states that pain has been well controlled.Pt has hx of breast and skin cancer. Pt is currently working as an sanitation officer, pt is back to work. Patient Goals: decrease pain, improve tolerance for sleeping, restore functional use of L UE, ride motorycle Functional Limitations: Comments Functional Limitation Comments: lifting, carrying, reaching, ADLs, self care, motorcycle Prior Level of Function: Independent without limitations Intake Information: Prescription present Previous Treatment: Exercises per physician;Surgery?;Pain meds? Falls Interview: No positive findings with falls interview Aquatic Screen: No Pain: Pain Pain Level: 0(worst pain: minimal doesnt really hurt) Pain Location: Shoulder - Left Description: Aching Frequency: Intermittent Post Treatment Pain Post Treatment Pain Level: No Change PROMIS Scales T-scores: mean of general population = 50. 5 points is clinically meaningfully difference Percentiles provide an indication of how the patient's score ranks in relation to the general population. Higher percentile rankings indicate better function/quality of life. 50th percentile is the average of the general population and indicates half of respondents had a worse score. T-scores: mean of general population = 50. 5 points is clinically meaningfully difference Percentiles provide an indication of how the patient's score ranks in relation to the general population. Higher percentile rankings indicate better function/quality of life. 50th percentile is the average of the general population and indicates half of respondents had a worse score. OBJECTIVE MEASURES WITH LEVEL OF FUNCTION: Posture / Alignment Posture: Increased thoracic kyphosis;Forward head;Rounded shoulders Shoulder Observations L Shoulder Presents with: Incision Incision: normal signs of healing L Shoulder Palpation Tenderness: Trapezius Cervical Spine ROM Cervical ROM : Limitation AROM Cervical Flexion AROM: Minimal limitation Cervical Extension AROM: Minimal limitation Cervical Side-Bend Left AROM: Normal Cervical Rotation Right AROM: Normal UE AROM R Shoulder Flex: 140 Degrees R Shoulder Internal Rotation (Functional): T11, DN R Shoulder External Rotation: 35 Degrees L Shoulder Flex: 90 Degrees L Shoulder Internal Rotation (Functional): L5-S1 L Shoulder External Rotation: 20 Degrees UE PROM R Shoulder Flex: 170 Degrees R Shoulder ABduction: 170 Degrees R Shoulder Internal Rotation: 30 Degrees(at 90) R Shoulder External Rotation: 90 Degrees(at 90) L Shoulder Flex: 120 Degrees L Shoulder Internal Rotation: 45 Degrees(arm by side) L Shoulder External Rotation: 25 Degrees(arm by side) UE and Cervical Strength Strength Tested: Shoulder Functional Strength R Shoulder Flexion: 5/5 R Shoulder Abduction (C5): 5/5 R Shoulder Internal Rotation: 5/5 R Shoulder External Rotation: 5/5 L Shoulder Flexion: 3-/5 L Shoulder Abduction (C5): 3-/5 L Shoulder Internal Rotation: 3+/5 L Shoulder External Rotation: 3-/5 Education: Education Learning Preferences: Explanation;Demonstratio n;Printed Materials;Performance Barriers: None Learning/educational needs: Home exercise program;Plan of Care Education Provided: Yes, see treatment interventions for education provided Education Provided To: Patient Education Mode/Type: Demonstration;Explanatio n/Discussion;Performance ;Literature/Printed Materials Response to Education/Teach Back: States/Identifies TREATMENT: PT Treatment Interventions: Therapeutic Exercise Evaluation Therapeutic Exercise: 1: *shoulder press, supine with wand, 2 x 15 2: *pendulums, review, prescribed by surgeon 3: *shoulder flexion AAROM, arm slide, review, prescribed by surgeon 4: *shoulder ER AAROM, supine with cane, 3 sec hold, 2 x 15 5: *shoulder flexion AAROm, supin with wand, 2 x 15 Skilled Intervention: Patient was educated in proper exercise technique and purpose for exercises. Reviewed and educated patient on additions/changes for home exercise program as above (*) Billing: PT Services: Evaluation - Low Complexity ([id number]) Therapeutic Exercise ([id number]): 1:1 time: 15 minutes (1 unit: 8-22 mins) Total time: 40 minutes Hima Molina, PT [facility] History and Physical - Surgi kyara Update < 30 dayson 01-07-2020 History and Physical - Surgical Update < 30 days History & Physical Reviewed: I have reviewed the History and Physical dated: 31-Dec-2019 History and Physical reviewed and relevant findings noted. Patient examined to review pertinent physical findings.: No significant changes Home Medications Reviewed: no changes noted Allergies Reviewed: no changes noted Consent: COVID-19 Consent: COVID-19 Risk ConsentSurgeon has reviewed garcia risks related to the risk of kristal COVID-19 and if they contract COVID-19 what the risks are. Signatures/Attestation: Note Completion: Attending Provider Inpatient Certification StatementObservation patient/other outpatient visits Electronic Signatures: Luciano Torres) (Signed 07-Jan-2020 07:02) Authored: History & Physical Reviewed, Consent, Note Completion Last Updated: 07-Jan-2020 07:02 by Luciano Torres) [facility] Preop Checkliston 01-07-2020 Preop Checklist Preop Checklist: Preop Checklist: Arrival [id number] Arrival Time06:10 Procedure Typeleft shoulder surgery Temperature C36.2 degrees C Temperature F97.2 degrees F Heart Rate75 beats per minute Respiratory Rate16 breath per minute Blood Pressure Lifqmadm843 mm/Hg Blood Pressure Ngzstxjux04 mm/Hg NPO [id number] ID Band Onyes Allergy Bandno known allergies Consent Signedyes H&P Completeyes EKG Performednot ordered Chest X-Ray Performednot ordered HCG Urine TestN/A Chlorhexadine Bath Givencompleted in pre-op Nasal Antiseptic Appliednot applicable Hair Washedyes Soap and water bath with hair shampoo the night before surgeryyes Hat placed on prior to transportnot applicable SCD's Appliedyes AUGUST Hose Appliednot ordered Denturesnot applicable Prostheticsnot applicable Hearing Aidsnot applicable Valuables Securedplaced in locker Glasses / Contactsplaced in locker Bowel Prepno Cardiovascular Assessment: Apicalregular Radial Pulsespalpable Pedal Pulsespalpable Extremitieswarm Respiratory Assessment: Respirationsunlabored regular Air Exchangeequal Breath Soundsclear Neurological Assessment: Level of Consciousnessalert Mobilitymoves all extremities Able to Express Selfyes Age Appropriateyes Emotional Statuscalm Preop Education: Surgical Site Infection Preventionyes Pain Scales and Managementyes Language / Communication: Language / CommunicationEnglish Electronic Signatures: Cammie Clark (SHAKILA) (Signed 07-Jan-2020 06:24) Authored: Preop Checklist Last Updated: 07-Jan-2020 06:24 by Cammie Clark (SHAKILA) [facility] CORONAVIRUS 2019, SCREEN ASY MPTOMATICon 01-06-2020 CORONAVIRUS 2019,PCR NOT DETECTED Normal Not Detected [facility] Comment on above: Result Comment: This assay is designed to detect the N, ORF1ab and/or S genes of SARS-CoV-2 via nucleic acid amplification. A Negative (NOT DETECTED) result does not preclude 2019-nCoV infection since the adequacy of sample collection and/or low viral burden may result in presence of viral nucleic acids below the clinical sensitivity of this test method. Negative (NOT DETECTED) result should not be used as the sole basis for treatment or other patient management decisions. Rather negative results should be combined with clinical observations, patient history, and epidemiological information to make patient management decisions. Fact sheet for providers: https://www.fda.gov/media/037074/download Fact sheet for patients: https://www.fda.gov/media/530519/download This test has received FDA Emergency Use Authorization (EUA) and has been verified by [facility] ([facility]). This test is only authorized for the duration of time that circumstances exist to justify the authorization of the emergency use of in vitro diagnostic tests for the detection of SARS-CoV-2 virus and/or diagnosis of COVID-19 infection under section 564(b)(1) of the Act, 21 U.S.C. 360bbb-3(b)(1), unless the authorization is terminated or revoked sooner. [facility] is certified under CLIA-88 as qualified to perform high complexity testing. Testing is performed in the [facility] laboratories located at [address] [place] [address]. Performed By: #### C OVSC #### [address] [place] [address] CORONAVIRUS 2019, SCREEN ASY MPTOMATICon 01-05-2020 Lab Specimen Source Nasal, Nasopharyngeal Normal [facility] Comment on above: Performed By: #### C OVSC #### [address] [place] [address] Patient Profile - Preop v2on 12-31-2019 Patient Profile - Preop v2 Profile: Initial Info: How to be Addressedval Spoken Language PreferredEnglish Source of Informationpatient Are you currently using the Personal Electronic Health Record or [employer]no Are you interested in learning more about [facility] for the management of your healthdeclined Instructions Givenappropriate clothing, center location, bring responsible adult as the front end loader driver (procedure may be cancelled if no front end loader driver) Prep Instructions Reviewedyes Instructed to Have No Fluids Aftermidnight Stated Reason for Admissionleft shoulder surgery Primary Contact Name and Numbercarol Patient Belongingsremains with patient Medications Brought to Hospitalno General Health: Weight in kg57.7 kilogram(s) Weight in ulc404.2 pound(s) Weight Methodstated Scale Typestanding Height in feet5 feet Height in inches2 inch(es) Height in cm157.4 centimeter(s) Height Methodstated BMI (kg/m2)23.289 square meter Patient or Family Member Reaction to Anesthesiano previous family member reaction Relationship/Environ: Resource/Environmental Concernsnone Substance: Current or Former Substance Use never: Cigarette/Tobacco, e-Cigarette/Vaping, Street Drugs YES: Alcohol Alcohol Use Statuscurrent alcohol Alcohol Amount1-2 drinks Alcohol Frequencydaily Alcohol Typebeer Risk Screens: COVID-19 Screening Completedno exposure or symptoms Advance Directive/DNRyes Advance Directive typeLiving Will Living Will AvailabilityLiving Will not available now During the past month, have you often been bothered by feeling down, depressed or hopelessno During the past month, have you often had little interest or pleasure in doing thingsno Have you had any thoughts of harming yourselfno Have you had any thoughts of harming anyone elseno Are you or have you been threatened or abused physically,emotionally or sexually abused by anyoneno Do you feel UNSAFE going back to the place you are livingno Patient is Able to be Assessed for Learningyes Factors Influencing Readiness to Learnanxiety; pain Factors that Impact Ability to Learnnone Devices/Methods Used to Communicateglasses Learning Preferencesverbal instruction Cultural Considerationsnone Developmental Considerationsnone Episcopalian Considerationsnone Other learner availableno Falls RiskPatient location auto qualifies him/her for HIGH RISK. Are there any cultural, spiritual, temple practices/values/needs that are important for us to knowno Do you want a visit/item from [facility] Pain Scalenumerical 0-10 Pain Scale Educationteaching provided Current Pain Level0 = None Acceptable Pain Level5 = Moderate Chronic Painno Information Review: Allergies, Home Meds and Significant Events have been Reviewed and Verified with Patient/Familyyes Allergy, Intolerance, Adverse Event: Allergies: NKDA: Active Bee Stings: Environment, Swelling/Edema, Active Problem List: Medical History: Hypertension: Catalog Name: Essential (primary) hypertension Hypothyroidism: Catalog Name: Hypothyroidism, unspecified Breast cancer: Catalog Name: Malignant neoplasm of unspecified site of unspecified female breast Surg History: History of partial mastectomy: Catalog Name: Acquired absence of unspecified breast and nipple Elective surgery: Catalog Name: Encounter for procedure for purposes other than remedying health state, unspecified, Description: jaw surgery Electronic Signatures: Cammie Clark (RN) (Signed 07-Jan-2020 06:23) Authored: Initial Info, General Health, Relationship/Environ, Risk Screens, Additional Information Deisy De AndaRN) (Signed 31-Dec-2019 11:29) Authored: Initial Info, General Health, Substance, Risk Screens, Additional Information Last Updated: 07-Jan-2020 06:23 by Cammie Clark (RN) Normal [facility] CBC AND DIFFERENTIALon 12-23 Basophils (Bld) [#/Vol] 0.00 10*3/uL Normal 0.00 - 0.10 [facility] Comment on above: Performed By: #### C BCDF #### [address] [address] Basophils/100 WBC (Bld) 0.6 % Normal 0.0 - 2.0 [facility] Comment on above: Performed By: #### C BCDF #### [address] [address] Eosinophils (Bld) [#/Vol] 0.10 10*3/uL Normal 0.00 - 0.70 [facility] Comment on above: Performed By: #### C BCDF #### [address] [address] Eosinophils/100 WBC (Bld) 1.5 % Normal 0.0 - 6.0 [facility] Comment on above: Performed By: #### C BCDF #### [address] [address] Erythrocyte distribution width (RBC) [Ratio] 14.1 % Normal 11.5 - 14.5 [facility] Comment on above: Performed By: #### C BCDF #### [address] [address] Hematocrit (Bld) [Volume fraction] 33.4 % Low 36.0 - 46.0 [facility] Comment on above: Performed By: #### C BCDF #### [address] [address] Hemoglobin (Bld) [Mass/Vol] 11.3 g/dL Low 12.0 - 16.0 [facility] Comment on above: Performed By: #### C BCDF #### [address] [address] Lymphocytes (Bld) [#/Vol] 1.70 10*3/uL Normal 1.20 - 4.80 [facility] Comment on above: Performed By: #### C BCDF #### [address] [address] Lymphocytes/100 WBC (Bld) 29.9 % Normal 13.0 - 44.0 [facility] Comment on above: Performed By: #### C BCDF #### [address] [address] MCHC (RBC) [Mass/Vol] 33.7 g/dL Normal 32.0 - 36.0 [facility] Comment on above: Performed By: #### C BCDF #### [address] [address] MCV (RBC) [Entitic vol] 105 fL High 80 - 100 [facility] Comment on above: Performed By: #### C BCDF #### [address] [address] Monocytes (Bld) [#/Vol] 0.50 10*3/uL Normal 0.10 - 1.00 [facility] Comment on above: Performed By: #### C BCDF #### [address] [address] Monocytes/100 WBC (Bld) 9.6 % Normal 2.0 - 10.0 [facility] Comment on above: Performed By: #### C BCDF #### [address] [address] Neutrophils (Bld) [#/Vol] 3.30 10*3/uL Normal 1.20 - 7.70 [facility] Comment on above: Result Comment: Perc ent differential counts (%) should be interpreted in the context of the absolute cell counts (cells/L). Performed By: #### C BCDF #### [address] [address] Neutrophils/100 WBC (Bld) 58.4 % Normal 40.0 - 80.0 [facility] Comment on above: Performed By: #### C BCDF #### [address] [address] Nucleated RBC/100 WBC (Bld) [Ratio] 0.2 /100 WBC Normal [facility] Comment on above: Performed By: #### C BCDF #### [address] [address] Platelets (Bld) [#/Vol] 243 10*3/uL Normal 150 - 450 [facility] Comment on above: Performed By: #### C BCDF #### [address] [address] RBC (Bld) [#/Vol] 3.18 x10E12/L Low 4.00 - 5.20 [facility] Comment on above: Performed By: #### C BCDF #### [address] [address] WBC (Bld) [#/Vol] 5.6 10*3/uL Normal 4.4 - 11.3 [facility] Comment on above: Performed By: #### C BCDF #### [address] [address] ELECTROLYTE PANELon 12-24-19 20 Anion gap [Moles/Vol] 15 mmol/L Normal 10 - 20 [facility] Comment on above: Performed By: #### E LECT #### [address] [address] Chloride [Moles/Vol] 100 mmol/L Normal 98 - 107 [facility] Comment on above: Performed By: #### E LECT #### [address] [address] HCO3 (Bld) [Moles/Vol] 26 mmol/L Normal 21 - 32 [facility] Comment on above: Performed By: #### E LECT #### [address] [address] Potassium [Moles/Vol] 4.3 mmol/L Normal 3.5 - 5.3 [facility] Comment on above: Performed By: #### E LECT #### [address] [address] Sodium [Moles/Vol] 137 mmol/L Normal 136 - 145 [facility] Comment on above: Performed By: #### E LECT #### [place] [id number] RED CELL MORPHOLOGYon 2019 RBC FRAGMENTS FEW Normal [facility] Comment on above: Performed By: #### M ORP2 #### [place] [address] RBC morphology finding Nom (Bld) SEE BELOW Normal [facility] Comment on above: Performed By: #### M ORP2 #### [place] [id number] XR SHOULDER LEFT 2+ VIEWS (S TANDARD)on 11-19-2019 XR SHOULDER LEFT 2+ VIEWS (STANDARD) EXAMINATION: XR SHOULDER LEFT 2+ VIEWS (STANDARD) HISTORY: ORDERING SYSTEM PROVIDED HISTORY: Pain, TECHNOLOGIST PROVIDED HISTORY: Illness/Other Reason for exam: left shoulder pain no injury Cancer History: u Surgery, RadiationHistory: u Encounter Type: Initial Additional signs and symptoms: none ORDERING SYSTEM PROVIDED DIAGNOSIS CODES: R52 Pain COMPARISON: None. FINDINGS: Three views of the left shoulder. No acute fracture. Glenohumeral and acromioclavicular joints are anatomically aligned. There is mild osteophytic spurring of the lower glenoid. There is acromioclavicular joint space narrowing with mild osteophytic spurring. Soft tissues are within normal limits. IMPRESSION: No acute osseous abnormality. Mild glenohumeral and acromioclavicular joint osteoarthritis. / Workstation ID: [id number] Dictated by: GENO GAMBOA on SunNov 19, 2019 4:03:29 PM EDT Transcribed by: LIBAN BEASLEY on SunNov 19, 2019 4:18:08 PM EDT Finalized by: GENO GAMBOA on SunNov 19, 2019 6:43:36 PM EDT Normal [facility] Comment on above: Order Comment: Injur y/Trauma or Illness?:Illness/Other How long have you had these symptoms (acute/chronic)?:Chronic Reason for exam?:left shoulder pain no injury History of cancer?:u Surgeries, chemotherapy, or radiation?:u Type of Exam?:Initial Additional signs and symptoms?:none Vital Signs Date Time Vital Sign Value Performing Clinician Facility 12-24-2023 13:52-0400 Body height 157.5 cm Aleksandra Aguiar Work Phone: [facility] 12-24-2023 13:52-0400 Body mass index (BMI) [Ratio] 23.78 kg/m2 Aleksandrajason Aguiar Work Phone: [facility] 12-24-2023 13:52-0400 Body weight 58.97 kg Aleksandrajason KuhnAguiar Work Phone: [facility] 09-15-2023 12:14-0400 Body height 157.5 cm Bri Bolaños CUTTING TORCH OPERATOR-FINANCIAL SERVICES DIRECTOR Work Phone: [facility] 09-15-2023 12:14-0400 Body mass index (BMI) [Ratio] 23.78 kg/m2 Bri Bolaños CUTTING TORCH OPERATOR-FINANCIAL SERVICES DIRECTOR Work Phone: [facility] 09-15-2023 12:14-0400 Body temperature 98.29 [degF] Bri Bolaños CUTTING TORCH OPERATOR-FINANCIAL SERVICES DIRECTOR Work Phone: [facility] 09-15-2023 12:14-0400 Body weight 58.97 kg Bri Bolaños CUTTING TORCH OPERATOR-FINANCIAL SERVICES DIRECTOR Work Phone: [facility] 09-15-2023 12:14-0400 Diastolic blood pressure 86 mm[Hg] Bri Bolaños CUTTING TORCH OPERATOR-FINANCIAL SERVICES DIRECTOR Work Phone: [facility] 09-15-2023 12:14-0400 Heart rate 90 /min Bri Bolaños CUTTING TORCH OPERATOR-FINANCIAL SERVICES DIRECTOR Work Phone: [facility] 09-15-2023 12:14-0400 Respiratory rate 16 /min Bri LEVY Work Phone: [facility] 09-15-2023 12:14-0400 SaO2% (BldA) [Mass fraction] 98 % Bri LEVY Work Phone: [facility] 09-15-2023 12:14-0400 Systolic blood pressure 151 mm[Hg] Bri LEVY Work Phone: [facility] 10-20-2022 13:33-0400 Body height 157.5 cm Aleksandrajason Aguiar Work Phone: [facility] 10-20-2022 13:33-0400 Body mass index (BMI) [Ratio] 23.23 kg/m2 Aleksandrajason Aguair Work Phone: [facility] 10-20-2022 13:33-0400 Body weight 57.61 kg Aleksandrajason Aguiar Work Phone: [facility] 02-01-2022 18:40-0400 Body height 162.56 cm [facility] Work Phone: 02-01-2022 18:40-0400 Body mass index (BMI) [Ratio] 23.3 kg/m2 [facility] Work Phone: 02-01-2022 18:40-0400 Body temperature 97.9 [degF] [facility] Work Phone: 02-01-2022 18:40-0400 Body weight 61.68 kg [facility] Work Phone: 02-01-2022 18:40-0400 Diastolic blood pressure 60 mm[Hg] [facility] Work Phone: 02-01-2022 18:40-0400 Heart rate 92 /min [facility] Work Phone: 02-01-2022 18:40-0400 Respiratory rate 18 /min [facility] Work Phone: 02-01-2022 18:40-0400 SaO2% (BldA) [Mass fraction] 97 % [facility] Work Phone: 02-01-2022 18:40-0400 Systolic blood pressure 128 mm[Hg] [facility] Work Phone: 03-16-2020 09:02-0500 BMI (Body Mass Index) 22.14 kg/m2 [facility] 03-16-2020 09:02050 Body weight 56.7 kg [facility] 03-16-2020 09:02-0500 Height 160 cm [facility] 11-19-2019 15:10-0400 Height 160 cm [facility] Encounters Encounter Date Encounter Type Care Provider Facility Start: 12-31-2024 End: 12-31-2024 Subsequent hospital visit by physician Aleksandra Aguiar Work Phone: [facility] Comment on above: Encounter for screen ing mammogram for malignant neoplasm of breast Start: 12-31-2024 End: 12-31-2024 ambulatory ALEKSANDRA AGUIAR [facility] Start: 11-18-2024 End: 02-17-2025 Transcribe Orders Aleksandra Aguiar Work Phone: [facility] Comment on above: Encounter for screen ing mammogram for malignant neoplasm of breast (Primary Dx) Start: 02-27-2024 End: 02-28-2024 Orders Only Aleksandra Aguiar Work Phone: [facility] Start: 01-10-2024 End: 01-11-2024 Orders Only Aleksandra Aguiar Work Phone: [facility] Start: 12-24-2023 End: 12-24-2023 Subsequent hospital visit by physician Aleksandra Aguiar Work Phone: [facility] Comment on above: Encounter for screen ing mammogram for malignant neoplasm of breast Start: 11-13-2023 End: 02-12-2024 Transcribe Orders Aleksandra Aguiar Work Phone: [facility] Comment on above: Encounter for screen ing mammogram for malignant neoplasm of breast (Primary Dx) Start: 09-15-2023 End: 09-15-2023 Patient encounter procedure Bri Bolaños CUTTING TORCH OPERATOR-FINANCIAL SERVICES DIRECTOR Work Phone: [facility] Comment on above: Impacted cerumen, un specified laterality (Primary Dx); Acute otitis media, left Start: 09-15-2023 End: 09-15-2023 ambulatory ALEKSANDRA AGUIAR [facility] Start: 11-02-2022 End: 11-02-2022 Subsequent hospital visit by physician Aleksandra Aguiar Work Phone: [facility] Comment on above: Encounter for screen ing mammogram for malignant neoplasm of breast Start: 10-20-2022 End: 10-20-2022 Subsequent hospital visit by physician Aleksandra Aguiar Work Phone: [facility] Comment on above: Screening mammogram for breast cancer Start: 09-05-2022 Transcribe Orders Aleksandra lomax Work Phone: [facility] Comment on above: Screening mammogram for breast cancer (Primary Dx) Start: 02-01-2022 End: 02-01-2022 Patient encounter procedure [facility], Specimen Start: 02-01-2022 End: 02-01-2022 ambulatory Aleksandra Aguiar [facility] Work Phone: Start: 10-19-2021 End: 10-19-2021 Subsequent hospital visit by physician Aleksandra Aguiar Work Phone: [facility] Comment on above: Arrived Start: 10-06-2020 End: 10-06-2020 Subsequent hospital visit by physician Aleksandra Aguiar Work Phone: [facility] Comment on above: Arrived Start: 06-10-2020 End: 06-10-2020 Orders Only Jasmine Meyer Work Phone: [facility] Start: 04-26-2020 End: 04-26-2020 Patient encounter procedure ALEKSANDRA AGUIAR [facility] Start: 04-26-2020 End: 04-26-2020 Office outpatient visit 10 minutes Luciano Torres Work Phone: [facility] Comment on above: Tear of left rotator cuff, unspecified tear extent, unspecified whether traumatic (Primary Dx); S/P arthroscopy of left shoulder Start: 04-16-2020 End: 04-16-2020 Patient encounter procedure Hima (Pt) Jihan Work Phone: [facility] Comment on above: Shoulder stiffness, left (Primary Dx); Weakness of left arm Start: 04-12-2020 End: 04-12-2020 Patient encounter procedure Jannet (Sleep Medicine Physician) [facility] Comment on above: Shoulder stiffness, left (Primary Dx); Weakness of left arm Start: 04-07-2020 End: 04-07-2020 Patient encounter procedure Jannet (Sleep Medicine Physician) [facility] Comment on above: Shoulder stiffness, left (Primary Dx); Weakness of left arm Start: 03-31-2020 End: 03-31-2020 Patient encounter procedure Susy (Sleep Medicine Physician) Brittani Work Phone: [facility] Comment on above: Shoulder stiffness, left (Primary Dx); Weakness of left arm Start: 03-29-2020 End: 03-29-2020 Patient encounter procedure Jannet (Sleep Medicine Physician) [facility] Comment on above: Shoulder stiffness, left (Primary Dx); Weakness of left arm Start: 03-24-2020 End: 03-24-2020 Patient encounter procedure Jannet (Sleep Medicine Physician) [facility] Comment on above: Shoulder stiffness, left (Primary Dx); Weakness of left arm Start: 03-17-2020 End: 03-17-2020 Patient encounter procedure Hima (Pt) Jihan Work Phone: [facility] Comment on above: Shoulder stiffness, left (Primary Dx); Weakness of left arm Start: 03-16-2020 End: 03-16-2020 Patient encounter procedure ALEKSANDRA AGUIAR [facility] Start: 03-16-2020 End: 03-16-2020 Postop follow up visit related to original px Luciano Torres Work Phone: [facility] Comment on above: Tear of left rotator cuff, unspecified tear extent, unspecified whether traumatic (Primary Dx) Start: 03-15-2020 End: 03-15-2020 Patient encounter procedure Jannet (Sleep Medicine Physician) [facility] Comment on above: Shoulder stiffness, left (Primary Dx); Weakness of left arm Start: 03-10-2020 End: 03-10-2020 Patient encounter procedure Aishwarya (Sleep Medicine Physician) Zuhair Work Phone: [facility] Comment on above: Shoulder stiffness, left (Primary Dx); Weakness of left arm Start: 03-08-2020 End: 03-08-2020 Patient encounter procedure Aishwarya (Sleep Medicine Physician) Zuhair Work Phone: [facility] Comment on above: Shoulder stiffness, left (Primary Dx); Weakness of left arm Start: 03-03-2020 End: 03-03-2020 Patient encounter procedure Aishwarya (Sleep Medicine Physician) Zuhair Work Phone: [facility] Comment on above: Shoulder stiffness, left (Primary Dx); Weakness of left arm Start: 02-27-2020 End: 02-27-2020 Patient encounter procedure Aishwarya (Sleep Medicine Physician) Zuhair Work Phone: [facility] Comment on above: Shoulder stiffness, left (Primary Dx); Weakness of left arm Start: 02-25-2020 End: 02-25-2020 Patient encounter procedure Jannet (Sleep Medicine Physician) [facility] Comment on above: Shoulder stiffness, left (Primary Dx); Weakness of left arm Start: 02-18-2020 End: 02-18-2020 Patient encounter procedure Hima ArevaloPtLarry Molina Work Phone: [facility] Comment on above: Shoulder stiffness, left (Primary Dx); Weakness of left arm Start: 02-12-2020 End: 02-12-2020 Patient encounter procedure ALEKSANDRA AGUIAR [facility] Start: 02-12-2020 End: 02-12-2020 Postop follow up visit related to original px Luciano Torres Work Phone: [facility] Comment on above: S/P arthroscopy of l eft shoulder (Primary Dx) Start: 01-21-2020 End: 01-21-2020 Patient encounter procedure ALEKSANDRA AGUIAR [facility] Start: 01-21-2020 End: 01-21-2020 Postop follow up visit related to original px Luciano Torres Work Phone: [facility] Comment on above: S/P arthroscopy of l eft shoulder (Primary Dx) Start: 01-09-2020 Patient encounter procedure SAMUEL BARKLEY [facility] Start: 01-08-2020 End: 01-08-2020 Patient encounter procedure LUCIANO TORRES [facility] Start: 01-07-2020 Patient encounter procedure ALEKSANDRA AGUIAR [facility] Start: 12-31-2019 End: 12-31-2019 Patient encounter procedure ALEKSANDRA AGUIAR [facility] Start: 12-26-2019 Patient encounter procedure ALEKSANDRA AGUIAR [facility] Start: 12-02-2019 End: 12-02-2019 Office outpatient visit 10 minutes Lucianosarah Porter Torres Work Phone: [facility] Comment on above: Tear of left rotator cuff, unspecified tear extent, unspecified whether traumatic (Primary Dx) Start: 12-02-2019 End: 12-02-2019 Patient encounter procedure ALEKSANDRA AGUIAR [facility] Start: 11-19-2019 End: 11-23-2019 Patient encounter procedure LUCIANO TORRES [facility] Start: 11-19-2019 End: 11-19-2019 Office outpatient new 30 minutes Luciano Porter Torres Work Phone: [facility] Comment on above: Tear of left rotator cuff, unspecified tear extent, unspecified whether traumatic (Primary Dx) Start: 09-24-2019 End: 09-24-2019 Subsequent hospital visit by physician Aleksandra Aguiar Work Phone: [facility] Comment on above: Arrived Start: 07-12-2017 Ambulatory Yol[facility] Procedures Date Procedure Procedure Detail Performing Clinician Start: 12-31-2024 End: 12-31-2024 Screening digital breast tomosynthesis bi Aleksandra Aguiar Work Phone: Start: 02-27-2024 Complete blood count with white cell differential, automated Aleksandra Aguiar Work Phone: Start: 01-10-2024 End: 01-10-2024 Thyrotropin [Units/volume] in Serum or Plasma Aleksandra Aguiar Work Phone: Start: 12-24-2023 End: 12-24-2023 Screening digital breast tomosynthesis bi Aleksandra Aguiar Work Phone: Start: 09-15-2023 EAR CERUMEN REMOVAL Alis an E Leno CUTTING TORCH OPERATOR-FINANCIAL SERVICES DIRECTOR Work Phone: Start: 11-02-2022 MG Breast Diagnostic for technical call back Aleksandra Aguiar Work Phone: Start: 10-20-2022 End: 10-20-2022 Screening digital breast tomosynthesis bi Aleksandra Aguiar Work Phone: Start: 09-24-2019 Mammography Jasmine hodgson Start: 07-02-2017 Microscopic observat ion [Identifier] in Cervix by Cyto stain Luciano Torres Start: 07-09-2014 Colonoscopy Aleksandra ggae Work Phone: Plan of Treatment Date Care Activity Detail Author Start: 11-13-2034 RSV Immunization for Adults (1 - 1-dose 75+ series) RSV Immunization for Adults (1 - 1-dose 75+ series) [facility] Start: 05-05-2026 Screening for malign ant neoplasm of colon [facility] Start: 12-31-2025 Screening for malign ant neoplasm of breast Mammogram [facility] Start: 01-09-2025 Thyroid stimulating hormone measurement TSH Level [facility] Start: 12-23-2024 Screening for malign ant neoplasm of breast Mammogram [facility] Start: 12-08-2024 COVID-19 Vaccine ( season) COVID-19 Vaccine () [facility] Start: 12-08-2024 Influenza vaccination Influenza Vacc ine (#1) [facility] Start: 07-09-2024 Screening for malign ant neoplasm of colon [facility] Start: 12-09-2023 COVID-19 Vaccine ( season) COVID-19 Vaccine ( season) [facility] Start: 12-09-2023 COVID-19 Vaccine ( season) COVID-19 Vaccine ( season) [facility] Start: 12-09-2023 Influenza vaccination [facility] Start: 10-21-2023 Screening for malign ant neoplasm of breast Mammogram [facility] Start: 12-15-2022 Lipid panel [facility] Start: 12-08-2022 COVID-19 Vaccine ( season) COVID-19 Vaccine ( season) [facility] Start: 12-08-2022 Influenza vaccination Influenza Vacc ine (#1) [facility] Start: 10-06-2022 Screening for malign ant neoplasm of breast Breast cancer screen [facility] Start: 07-02-2022 Screening for malign ant neoplasm of cervix [facility] Start: 12-08-2021 Influenza vaccination Flu vaccine (# 1) [facility] Start: 09-23-2021 Screening for malign ant neoplasm of breast Breast cancer screen [facility] Work Phone: Start: 05-04-2021 COVID-19 Vaccine (4 - Booster for Moderna series) COVID-19 Vaccine (4 - Booster for Moderna series) [facility] Start: 12-08-2020 Influenza vaccination Flu vacc ine (Season Ended) [facility] Work Phone: Start: 09-23-2020 Screening mammography [facility]ogram [facility] Start: 08-06-2020 Screening for malign ant neoplasm of breast Breast cancer screen [place] Start: 07-02-2020 Screening for malign ant neoplasm of cervix Pap Smear [facility] Start: 04-26-2020 End: 04-26-2020 Office Visit 04/26/2020 Office Visit Sports Medicine Luciano Torres MD [address] [place] [address] [phone] [facility] Start: 03-16-2020 End: 03-16-2020 Follow-Up 03/16/2020 Follow-Up Sports Luciano Bray MD [address] [place] [address] [phone] [facility] Start: 02-11-2020 End: 02-11-2020 Follow-Up 02/11/2020 Follow-Up Sports Medicine Luciano Torres MD [address] [place] [address] [phone] [facility] Start: 12-09-2019 Influenza vaccination [place] Start: 12-09-2019 Influenza vaccinatio n given Sequential Influenza Vaccine (#1) [facility] Start: 2019 RSV Immunization age d 60 or older (1 - 1-dose 60+ series) RSV Immunization aged 60 or older (1 - 1-dose 60+ series) [facility] Start: 2019 RSV patient s and/or patients aged 60+ years (1 - 1-dose 60+ series) RSV patients and/or patients aged 60+ years (1 - 1-dose 60+ series) [facility] Start: 12-15-2018 Thyroid stimulating hormone measurement TSH testing [facility] Work Phone: Start: 12-15-2018 TSH Qn TSH testing [place], [place] Start: 09-21-2017 DTaP/Tdap/Td vaccine (2 - Td or Tdap) DTaP/Tdap/Td vaccine (2 - Td or Tdap) [facility] Start: 09-21-2017 DTaP/Tdap/Td vaccine (2 - Td) DTaP/Tdap/Td vaccine (2 - Td) [place] Start: 09-21-2017 DTaP/Tdap/Td Vaccine s (2 - Td or Tdap) DTaP/Tdap/Td Vaccines (2 - Td or Tdap) [facility] Start: 09-21-2017 Tetanus vaccination Tetanus: Every 1 0yrs [facility] Start: 04-15-2017 LIPID SCREEN LIPID SCREEN [facility] Start: 04-15-2015 DIABETES SCREEN DIABETES SCREEN [facility] Start: 11-13-2009 Administration of he rpes zoster vaccine Zoster Vaccines (1 of 2) [facility] Start: 11-13-2009 COLORECTAL CANCER SCREENING,SEE MODIFIER COLORECTAL CANCER SCREENING,SEE MODIFIER [facility] Start: 11-13-2009 Pneumococcal Vaccine : 50+ Years (1 of 1 - PCV) Pneumococcal Vaccine: 50+ Years (1 of 1 - PCV) [facility] Start: 11-13-2009 Screening for malign ant neoplasm of colon [facility] Start: 11-13-2009 Shingles Vaccine (1 of 2) Goddard gles Vaccine (1 of 2) [facility] Start: 11-13-2009 SHINGRIX VACCINE (1 of 2) GODDARD GRIX VACCINE (1 of 2) [facility] Start: 11-13-2009 Zoster Vaccines (1 of 2) Zoste r Vaccines (1 of 2) [facility] Start: 11-13-2004 Screening for malign ant neoplasm of colon [facility] Start: 1999 Mammography MAMMOGRAM [facility] Start: 11-13-1989 HPV TESTING HPV TESTING [facility] Start: 11-13-1989 Screening for malign ant neoplasm of cervix [facility] Start: 11-13-1980 PAP TESTING PAP TESTING [facility] Start: 11-13-1980 Screening for malign ant neoplasm of cervix [facility] Start: 11-13-1978 Urine microalbumin profile DTAP,TDAP,TD (1 - Tdap) [facility] Start: 11-13-1977 Hepatitis C antibody , confirmatory test Hepatitis C Screening [facility] Start: 11-13-1977 HEPATITIS C SCREENING HEPATITIS C SC REENING [facility] Start: 11-13-1977 Hepatitis C screening [facility] Start: 11-13-1977 HIV SCREENING HIV SCREENING [facility] Start: 1975 COVID-19 Vaccine (1 of 2) COVI D-19 Vaccine (1 of 2) [facility] Start: 11-13-1974 HIV screening [facility] Start: 1971 Adolescent depressio n screening assessment [facility] Start: 1971 Depression Screen Depression Screen [facility] Start: 11-13-1964 COVID-19 Vaccine (1) COVID-19 Vaccin e (1) [facility] Start: 11-13-1962 History and physical examination, annual for health maintenance Wellness Visit [facility] Start: 11-13-1960 MMR Vaccines (1 of 1 - Standard series) MMR Vaccines (1 of 1 - Standard series) [facility] Start: 1959 Annual wellness visit Medicare Initial Physical (IPPE) [facility] Start: 1959 Depression screening using PHQ-9 (Patient Health Questionnaire 9) score Depression Screening (PHQ9) [facility] Start: 1959 Hepatitis C screening Hepatitis C sc reen [place] Start: 1959 HIV screening HIV Screening [facility] Start: 1959 Lipid panel Lipid Panel [facility] Start: 1959 Medicare Annual Well ness (AWV) Medicare Annual Wellness (AWV) [facility] Start: 1959 Screening for malign ant neoplasm of cervix Pap Smear [facility] Start: 1959 Screening for malign ant neoplasm of colon [facility] Start: 1959 Screening for osteoporosis Bone Density Scan [facility] Start: 1959 Screening mammography Mammogram [facility] Start: 1959 Tetanus vaccination Tetanus: Every 1 0yrs [facility] Start: 1959 Thyroid stimulating hormone measurement TSH Level [facility] Start: 1959 Yearly Adult Physical Yearly Adult P [facility] End: 11-18-2020 MR Shoulder Left Without Contrast MR Shoulder Left Without Contrast Imaging Routine Tear of left rotator cuff, unspecified tear extent, unspecified whether traumatic 1 Occurrences starting 11/19/2019 until 11/18/2020 [facility] Comment on above: 1 Occurrences starti ng 11/19/2019 until 11/18/2020 End: 09-24-2019 Screening digital breast tomosynthesis bi Forrest Darci Digital Screen Bilateral Imaging Routine Once for 1 Occurrences starting 09/24/2019 until 09/24/2019 [place] Comment on above: Once for 1 Occurrenc es starting 09/24/2019 until 09/24/2019 Screening digital br east tomosynthesis [place] End: 10-06-2020 Screening digital breast tomosynthesis bi Forrest Darci Digital Screen Bilateral Imaging Routine Once for 1 Occurrences starting 10/06/2020 until 10/06/2020 [facility] Work Phone: Comment on above: Once for 1 Occurrenc es starting 10/06/2020 until 10/06/2020 End: 10-19-2021 Screening digital breast tomosynthesis [facility] Work Phone: Comment on above: Once for 1 Occurrenc es starting 10/19/2021 until 10/19/2021 [facility] Immunizations Immunization Date Immunization Notes Care Provider Farhat maracno 09-22-2007 tetanus toxoid, redu elsa diphtheria toxoid, and acellular pertussis vaccine, adsorbed Aleksandra Aguiar [facility] Payers Date Payer Category Payer Medicare MEDICARE PART A AND B [id number] 2024 Medicare [id number] 2024 Medicare supplementa l policy (as second payer) MMO MEDICARE SUPPLEMENT [id number] 2024 Unknown [id number] 2022 Self-pay [id number] 2021 Blue [employer] Managed Care - [id number] 2021 Unknown 2021 Unknown [id number] 2018 Unknown [id number] 2018 Unknown [id number] .[id number] 2018 Unknown [id number] 2015 Unknown [id number] .[id number] 2015 Unknown [id number] 1959 Unknown [id number] 2.16.840.1.059177.3.579.2 .903 1959 Unknown [id number] 2.16.840.1.738271.3.579.2 .903 1959 Unknown [id number] 2.16.840.1.873026.3.579.2 .903 1959 Unknown [id number] 2.16.840.1.125879.3.579.2 .903 1959 Unknown [id number] 2.16.840.1.961066.3.579.2 .903 1959 Unknown [id number] 2.16.840.1.665888.3.579.2 .903 1959 Unknown [id number] 2.16.840.1.362669.3.579.2 .903 1959 Unknown [id number] 2.16.840.1.835820.3.579.2 .903 1959 Unknown [id number] 2.16.840.1.095207.3.579.2 .903 1959 Unknown [id number] 2.16.840.1.108796.3.579.2 .903 1959 Unknown [id number] 2.16.840.1.801841.3.579.2 .903 1959 Unknown [id number] 2.16.840.1.450870.3.579.2 .903 1959 Unknown [id number] 2.16.840.1.823604.3.579.2 .903 1959 Unknown [id number] 2.16.840.1.024706.3.579.2 .1243 Unknown [id number] [id number] .462 Social History Date Type Detail Facility Start: 05-27-2014 End: 09-06-2017 Tobacco smoking status NHIS Never smoker [facility] Start: 09-06-2017 End: 12-24-2023 Alcohol intake Current drinker of alcohol (finding) [place], [place] Start: 1960 Sex Assigned At Not on file [place], [place] Start: 12-02-2019 End: 12-24-2023 Tobacco smoking status [facility] Former smoker [facility] Start: 12-02-2019 End: 12-24-2023 Tobacco use and exposure Never used [facility] Start: 10-10-2022 End: 09-15-2023 Exposure to SARS-CoV-2 (event) Not sure [facility] Start: 09-06-2017 End: 12-31-2024 Alcohol intake [facility] Work Phone: Start: 02-02-2021 End: 09-15-2023 Tobacco smoking status [facility] Unknown if ever smoked [facility] Work Phone: Start: 1960 Sex Assigned At Female [facility] Work Phone: Start: 10-20-2022 End: 12-31-2024 Gender identity Not on file [facility] Start: 12-08-1976 End: 12-11-1978 History of tobacco use Current smoker [facility] Start: 12-08-1976 End: 12-11-1978 History of tobacco use Cigarette Smoker [facility] Start: 11-07-2021 Sex Female (finding) [facility] Clinical Notes 02-25-2021 to 09-15-2023 Bri Bolaños APRN-FINANCIAL SERVICES DIRECTOR - 09/15/2023 11:35 AM EDT Note Date & Type Note Facility 09-15-2023 History of Present illness Narrative Associated Order(s): Ear Cerumen Removal [facility] Bri Donna BolañosMILDRED Visit Note - 09/15/2023 1:07 PM This note was generated with voice recognition software and may contain errors including spelling, grammar, syntax, and misrecognization of what was dictated. Patient: Danay Thompson, , 62 y.o., female PCP: MILDRED Ramirez --- ALLERGIES: No Known Allergies CURRENT MEDICATIONS: Current Outpatient Medications Medication Instructions amoxicillin-pot clavulanate (Augmentin) 875-125 mg tablet 1 tablet, oral, 2 times daily, Take with a meal. cyanocobalamin (VITAMIN B-12) 1,000 mcg, oral, Daily ferrous sulfate (325 mg ferrous sulfate) 325 mg, oral, Daily with breakfast levothyroxine (SYNTHROID, LEVOXYL) 112 mcg, oral, Daily magnesium, amino acid chelate, 133 mg tablet 1 tablet, oral, 2 times daily --- PAST MEDICAL HX: History of hypothyroidism; no other known health issues. SURGICAL HX: History reviewed. No pertinent surgical history. FAMILY HX: No pertinent history. SOCIAL HX: has no history on file for tobacco use. --- CHIEF COMPLAINT: Chief Complaint Patient presents with Earache Left ear discomfort X 1 week HISTORY OF PRESENT ILLNESS: The history was obtained from patient. Danay is a 62 y.o. female, who presents with a chief complaint of L ear feeling muffled/diminished hearing and has pressure in ear - sxs started 1 week ago. Denies any ear pain. Reports onset was somewhat abrupt - just feel like it plugged up. Reports also feels like her equilibrium is slightly off. Reports has history of cerumen impaction and feels this is the same. Denies any recent history of trauma; denies ear pain/drainage, fever, headaches, nasal congestion, and cold symptoms. Reports has tried flushing her ear with hot water, and has also tried OTC ear wax removal drops, without any relief. Has not tried any other tgaw-gee-vahahtd medications or home remedies for symptom management. REVIEW OF SYSTEMS: 10 systems reviewed negative with exception of history of present illness as listed above. TODAY'S VITALS: BP 151/86 Pulse 90 Temp 36.8 C (98.3 F) Resp 16 Ht 1.575 m (5' 2) Wt 59 kg (130 lb) SpO2 98% BMI 23.78 kg/m PHYSICAL EXAMINATION: General: Pleasant female; alert and oriented; in no acute distress. Sitting comfortably on exam table. Eyes: Pupils equal, round and reactive to light. No conjunctival erythema; no scleral icterus. HENT: No sinus tenderness. Bilat TM's fully occluded by dark cerumen. Visible portion of canal without erythema/edema; no tenderness with manipulation of tragus or pinna. After irrigation, L canal clear; TM moderately injected; R ear canal and TM still occluded with dark cerumen despite multiple attempts at removal. Neck: Supple. No lymphadenopathy Respiratory: Lungs are clear to auscultation; no wheezes, rhonchi, or rales. Respirations unlabored, Breath sounds are equal, Symmetrical chest wall expansion. Cardiovascular: Normal rate, Regular rhythm. Normal S1S2. No m/r/g. Musculoskeletal: Grossly normal; appropriate for age. Ambulates and changes position without instability or reported dizziness. Integumentary: [place], warm, dry, and Intact. Neurologic: No focal deficits. Hearing grossly intact (and normal again per pt in L ear) s/p ear irrigation. Cognition and Speech: Oriented, Speech clear and coherent. Psychiatric: Cooperative, Appropriate mood & affect. Ear Cerumen Removal Performed by: MILDRED Kwong Authorized by: MILDRED Kwong --- Medical Decision Making LABORATORY or RADIOLOGICAL IMAGING ORDERS/RESULTS: None IMPRESSION/PLAN: Course: Worsening; stable 1. Impacted cerumen, unspecified laterality 2. Acute otitis media, left - amoxicillin-pot clavulanate (Augmentin) 875-125 mg tablet; Take 1 tablet by mouth 2 times a day for 10 days. Take with a meal. Dispense: 20 tablet; Refill: 0 Gentle ear irrigation performed in office today; L ear irrigation successful, but for R ear, small amount of cerumen manually removed with curette, but unable to clear impaction of right canal d/t hardened wax, despite multiple attempts. Pttolerated procedure well, stating hearing had improved significantly in L ear after procedure, but still not back to normal in R ear. Does have evidence of AOM of L ear, so will start Augmentin today. Recommended several days of BID Debrox to soften wax in R ear, then can RTC for further (hopefully more successful) irrigation. Discussed strategies for management of normal cerumen in the future - should avoid qtips, but can use baby nose bulb and warm water to irrigate, or seek care if wax becomes bothersome again or if she has any further issues with hearing. Patient agrees with plan of care; questions were encouraged and answered. MILDRED Kwong Advanced Practice Provider [facility] documented in this encounter [facility] Work Phone: 05-05-2021 Note HNO ID: [id number] Author: Shakila Hogan RN Service: ? Author Type: Registered Nurse Type: Nursing Progress Note Filed: 05/05/2021 9:00 AM Note Text: Patient states readiness for discharge. Assisted with dressing Dr Madrid at bedside [facility] 02-25-2021 Note HNO ID: [id number] Author: Samuel Khan APRN.CNP Service: ? Author Type: Nurse Practitioner Type: Progress Notes Filed: 02/25/2021 12:25 PM Note Text: CHIEF COMPLAINT: Patient presents with: Abdominal Pain: PCP wants EGD eval This consult was requested by Self for an opinion regarding abdominal pain. My final recommendations will be communicated to the requesting health care provider by way of the shared medical record for internal providers or letter via the [employer] for external providers. HPI: Danay Thompson is a 60 year old female with a past medical history hypothyroid, rotator cuff. Who presents for Abdominal Pain (PCP wants EGD eval) Reports 6 months started having abdominal pain intermittently will have a sharp/dull pain lasting a few seconds and then goes away. This happens few times during the week. Heartburn - will have 4 times a month - will take TUMs which helps. She reports this happens after eating and laying down. The patient reports change in bowel habits,denies BRBPR. Having a bowel movement once daily which are solid. She reports watery diarrhea twice a month and stool is very dark. Reports she was eating blueberries in the morning and would have black stool intermittently but stopped eating blueberries and still having black stools. Last 2 blood draws reports anemia and was started on iron supplement. Reports occasional dizzy spells chilly, feels weak. Record Review: [facility] / Outside records reviewed. PAST MEDICAL HISTORY Diagnosis Date - Hypothyroidism - Shoulder stiffness, left 02/18/2020 - Weakness of left arm 02/18/2020 PAST SURGICAL HISTORY Procedure Laterality Date - COLONOSCOPY GEN ANES 07/27/2014 normal colon - MASTECTOMY, PARTIAL 09/07/2004 - PAST SURGICAL HISTORY OF jaw surgery - PAST SURGICAL HISTORY OF BCC, right brow - PAST SURGICAL HISTORY OF breast cancer right breast Allergies: ALLERGIES Allergen Reactions - Venom-Honey Bee Swelling Medications: olmesartan (BENICAR) 20 mg tablet ferrous sulfate 325 mg (65 mg iron) tablet Take by mouth. multivitamin ORAL Tab Take one(1) tablet daily. folic acid 1 mg ORAL Tab Take one (1) tablet daily. escitalopram (LEXAPRO) 10 mg ORAL Tab polyethylene glycol 3350 (MIRALAX, GLYCOLAX) 17 gram/dose powder Use as directed for Miralax / Gatorade Bowel Prep Kit Bisacodyl (DULCOLAX) 5 mg tab Use as directed for Miralax / Gatorade Bowel Prep Kit omeprazole (PRILOSEC) 20 mg capsule Take 2 capsules by mouth once daily. FAMILY HISTORY Problem Relation Age of Onset - Arthritis Father - Colon Cancer No Family History Employer And Job Title: None on file Years Of Education Completed: Not specified Marital Status: Social History Tobacco Use - Smoking status: Former Smoker - Smokeless tobacco: Never Used - Tobacco comment: quit 1982 Substance Use Topics - Alcohol use: Yes Comment: beer vodka - Drug use: Never Review of Systems: Review of Systems Gastrointestinal: Positive for abdominal pain and blood in stool. All other systems reviewed and are negative. Are you taking any blood thinners? No Physical Examination: BP 106/70 Pulse 97 Ht 5' 4 (1.63m) Wt 134 lb (60.8kg) BMI 22.99 kg/(m2). Physical Exam Abdominal: Tenderness: There is abdominal tenderness in the epigastric area. ASSESSMENT: Black stool (primary encounter diagnosis) Anemia, unspecified type Epigastric pain PLAN: Assessment/Plan (K92.1) Black stool (primary encounter diagnosis) (D64.9) Anemia, unspecified type (R10.13) Epigastric pain 1. Black stool - polyethylene glycol 3350 (MIRALAX, GLYCOLAX) 17 gram/dose powder; Use as directed for Miralax / Gatorade Bowel Prep Kit Dispense: 238 g; Refill: 0 - Bisacodyl (DULCOLAX) 5 mg tab; Use as directed for Miralax / Gatorade Bowel Prep Kit Dispense: 4 tablet; Refill: 0 - FECAL OCCULT BLOOD TEST; Future - CBC + DIFF; Future - EGD; Future - COLONOSCOPY - DIAGNOSTIC - COMP METABOLIC PANEL; Future 2. Anemia, unspecified type - EGD; Future - COLONOSCOPY - DIAGNOSTIC - COMP METABOLIC PANEL; Future 3. Epigastric pain - EGD; Future - COLONOSCOPY - DIAGNOSTIC - COMP METABOLIC PANEL; Future Follow up in office 3 months/PRN. Recommended to please call office/go to ER if fever, chills, chest pain, SOB, diarrhea, nausea, emesis, worsening abdominal pain, dehydration occurs I spent 30 minutes in the visit, with more than 50% of the total htks-bn-iwvg time of the visit in counseling / coordination of care. I have confirmed and edited as necessary, the PFSH and ROS obtained by others. Samuel Khan APRN.FINANCIAL SERVICES DIRECTOR February 25, 2021 12:22 PM [facility] Evaluation note Diagnosis Onset Date Hypothyroidism acute Malnutrition acute Hypertension [facility] Work Phone: Evaluation note* Diagnosis [facility] for [facility] Encounter for screening mammogram for malignant neoplasm of breast [facility] Diagnosis Screening mammogram for breast cancer- Primary Screening mammogram for breast cancer [facility]* Diagnosis Impacted cerumen, unspecified laterality- Primary Acute otitis media, left Unspecified otitis media documented in this encounter [facility] Work Phone: Evaluation note* Diagnosis Encounter for screening mammogram for malignant neoplasm of breast- Primary Encounter for screening mammogram for malignant neoplasm of breast [facility]* Diagnosis Encounter for screening mammogram for malignant neoplasm of breast [facility]* Diagnosis Encounter for screening mammogram for malignant neoplasm of breast- Primary Encounter for screening mammogram for malignant neoplasm of breast documented in this encounter [facility] Summary Purpose Family History Relationship Condition Age at Onset Recorded Date/T rinku mother Disorder of thyroid Unknown Advance Directives Documents on File Type Date Recorded Patient Nuclear Medicine Medical Director Expl anation Advance Directives and Living Will Power of Turn Out Documents on File Type Date Recorded Patient Nuclear Medicine Medical Director Expl anation Advance Directives and Living Will Documents on File Type Date Recorded Patient Nuclear Medicine Medical Director Expl anation Advance Directives and Living Will Documents on File Type Date Recorded Patient Nuclear Medicine Medical Director Expl anation ACP-Advance Directive ACP-Power of Turn Out Documents on File Type Date Recorded Patient Nuclear Medicine Medical Director Expl anation Power of Turn Out 11/02/2022 10:47 AM Advance Directives and Living Will 11/02/2022 10:47 AM patient has will and POA, documents not present History of Present Illness * Luciano Torres MD - 12/02/2019 4:16 PM EDT Dictation on: 12/02/2019 4:18 PM by: LUCIANO TORRES [[id number]] documented in this encounter* Luciano Torres MD - 01/21/2020 2:03 PM EDT Danay is seen for followup of her left rotator cuff repair. Wounds are excellent. Sutures are removed. She is neurovascularly intact, having very little pain. There is a solid repair. I told her she can start Codman exercises and gentle passive motion. No active motion. I will see her back in 3 weeks. She should wear the immobilizer time study observer. 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 documented in this encounter* Hima Molina (Pt) - 02/18/2020 1:33 PM EST Episode Visit Count: 1 Therapist That Will Oversee The Plan Of Care: Hima Molina Start of Care Date: 02/18/20 Onset Date: 01/07/20 Patient Identified by Name and Date of : Yes REHABILITATION AND SPORTS THERAPY PHYSICAL THERAPY EVALUATION PLAN OF CARE: Assessment: Danay Thompson presents s/p L RC repair on 01/07/2020. Pt's sxs are well controlled and pt does not experience pain, pt's primary sx is stiffness. Pt's impairments include decreased shoulder mobility, decreased shoulder ROM, decreased shoulder strength, postural deficits, dysfunctionalmovement patterns, and upper quarter myofascial dysfunction. As a result of sxs/impairments, pt has decreased tolerance for functional use of L UE and sleeping. Based on history , examination(shoulder , ADLs, sleeping), presentation and clinical reasoning pt is appropriate for low complexity evaluation. Pt will benefit from skilled physical therapy to address impairments, postural re-ed, dynamic GH stabilization, manual therapy techniques and functional training to decrease pain/sxs to minimizefunctional limitations. Prognosis: Good Good due to: current objective clinical presentation Goals for Episode of Care: created on 02/18/20 through 03/19/20 Patient will improve L shoulder elevation AROM to > 120 and functional shoulder IR to upper lumbar region -Patient will improve L shoulder strength to > 4-5 in all planes --Patient will have no difficulty sleeping through the night without interruption from shoulder sxs -Patient will improve L shoulder PROM with in 80% of contralateral side [place] in home exercise program. Patient will decrease pain rating by 2 points to meet minimal clinical important difference for numeric pain rating scale. Patient Goals: decrease pain, improve tolerance for sleeping, restore functional use of L UE, ride motorycle Planned Interventions, Frequency, and Duration: Current Frequency: 2x/week Duration: 4 weeks Total Number of Visits Planned: 8 Planned Treatment Interventions: Therapeutic exercise;Neuromuscular re- education;Manual therapy;Therapeutic activities;Self-retirement management;Patient/Family/Caregiver Education;Body Mechanics Training;Functional training Patient demonstrates good understanding of plan of care and treatment. The above goals and plan of care were discussed and agreed upon by patient/family. SUBJECTIVE: Danay Thompson is a 59 year old female seen today for L RC repair. Pt was in a sling for 3 weeks initially then discontinued. Pt f/u with him at 6 weeks post op, pt had a good report from ortho, pt was instructed on AAROM/PROM exercises (per EPIC notes). Pt is on heavly lifting precautions and not to ride motorocyle no other precautions given. Pt has avoided a lot of movement with L shoulder. Per EPIC notes it seems that supraspiantus tendon was repair. Pt states that pain has been well controlled.Pt has hx of breast and skin cancer. Pt is currently working as an sanitation officer,pt is back to work. Patient Goals: decrease pain, improve tolerance for sleeping, restore functional use of L UE, ride motorycle Functional Limitations: Comments Functional Limitation Comments: lifting, carrying, reaching, ADLs, self care, motorcycle Prior Level of Function: Independent without limitations Intake Information: Prescription present Previous Treatment: Exercises per physician;Surgery ;Pain meds Falls Interview: No positive findings with falls interview Aquatic Screen: No Pain: Pain Pain Level: 0(worst pain: minimal doesnt really hurt) Pain Location: Shoulder - Left Description: Aching Frequency: Intermittent Post Treatment Pain Post Treatment Pain Level: No Change PROMIS Scales T-scores: mean of general population = 50. 5 points is clinically meaningfully difference Percentiles provide an indication of how the patient's score ranks in relation to the general population. Higher percentile rankings indicate better function/quality of life. 50th percentile is the average of the general population and indicates half of respondents had a worse score. T-scores: mean of general population = 50. 5 points is clinically meaningfully difference Percentiles provide an indication of how the patient's score ranks in relation to the general population. Higher percentile rankings indicate better function/quality of life. 50th percentile is the average of the general population and indicates half of respondents had a worse score. OBJECTIVE MEASURES WITH LEVEL OF FUNCTION: Posture / Alignment Posture: Increased thoracic kyphosis;Forward head;Rounded shoulders Shoulder Observations L Shoulder Presents with: Incision Incision: normal signs of healing L Shoulder Palpation Tenderness: Trapezius Cervical Spine ROM Cervical ROM : Limitation AROM Cervical Flexion AROM: Minimal limitation Cervical Extension AROM: Minimal limitation Cervical Side-Bend Left AROM: Normal Cervical Rotation Right AROM: Normal UE AROM R Shoulder Flex: 140 Degrees R Shoulder Internal Rotation (Functional): T11, DN R Shoulder External Rotation: 35 Degrees L Shoulder Flex: 90 Degrees L Shoulder Internal Rotation (Functional): L5-S1 L Shoulder External Rotation: 20 Degrees UE PROM R Shoulder Flex: 170 Degrees R Shoulder ABduction: 170 Degrees R Shoulder Internal Rotation: 30 Degrees(at 90) R Shoulder External Rotation: 90 Degrees(at 90) L Shoulder Flex: 120 Degrees L Shoulder Internal Rotation: 45 Degrees(arm by side) L Shoulder External Rotation: 25 Degrees(arm by side) UE and Cervical Strength Strength Tested: Shoulder Functional Strength R Shoulder Flexion: 5/5 R Shoulder Abduction (C5): 5/5 R Shoulder Internal Rotation: 5/5 R Shoulder External Rotation: 5/5 L Shoulder Flexion: 3-/5 L Shoulder Abduction (C5): 3-/5 L Shoulder Internal Rotation: 3+/5 L Shoulder External Rotation: 3-/5 Education: Education Learning Preferences: Explanation;Demonstration;Printed Materials;Performance Barriers: None Learning/educational needs: Home exercise program;Plan of Care Education Provided: Yes, see treatment interventions for education provided Education Provided To: Patient Education Mode/Type: Demonstration;Explanation/Discussion;Performance;Literature/Printed Materials Response to Education/Teach Back: States/Identifies TREATMENT: PT Treatment Interventions: Therapeutic Exercise Evaluation Therapeutic Exercise: 1: *shoulder press, supine with wand, 2 x 15 2: *pendulums, review, prescribed by surgeon 3: *shoulder flexion AAROM, arm slide, review, prescribed by surgeon 4: *shoulder ER AAROM, supine with cane, 3 sec hold, 2 x 15 5: *shoulder flexion AAROm, supin with wand, 2 x 15 Skilled Intervention: Patient was educated in proper exercise technique and purpose for exercises. Reviewed and educated patient on additions/changes for home exercise program as above (*) Billing: PT Services: Evaluation - Low Complexity ([id number]) Therapeutic Exercise ([id number]): 1:1 time: 15 minutes (1 unit: 8-22 mins) Total time: 40 minutes Hima Molina PT documented in this encounter* Jannet Ramos (Sleep Medicine Physician) - 02/25/2020 2:53 PM EST Episode Visit Count: 2 Therapist That Will Oversee The Plan Of Care: Hima Molina Start of Care Date: 02/18/20 Onset Date: 01/07/20 Patient Identified by Name and Date of : Yes REHABILITATION AND SPORTS THERAPY PHYSICAL THERAPY TREATMENT NOTE ASSESSMENT: Danay Thompson demonstrated limited active assisted flexion. Patient able to progressto extension abduction and IR without increased discomfort. The patient will continue to benefit from ongoing skilled physical therapy for flexibilty PLAN FOR NEXT VISIT: Continue with phase II SUBJECTIVE: Patient Reason for Visit: Patient reports I am a little achy in the morning. Patientis doing exercises daily. Pain: Pain Pain Level: 0 Pain Location: Shoulder - Left Post Treatment Pain Post Treatment Pain Level: No Change OBJECTIVE MEASURES WITH LEVEL OF FUNCTION: UE PROM L Shoulder Flex: 128 Degrees L Shoulder External Rotation: 28 Degrees TREATMENT: Therapeutic Exercise: 1: Nida, flexion and scaption 10 x 5 seconds each 2: *wand extension 10 x 5 seconds 3: *wand IR 10 x 5 seconds 4: *wand abduction 10 x 5 seconds 5: *shoulder flexion AAROm, supin with wand, 2 x 15 6: Supine wand ER 10 x 2 7: scap squeeze 10 x 5 seconds Skilled Intervention: Patient was educated in proper exercise technique and purpose for exercises. Reviewed and educated patient on additions/changes for home exercise program as above (*) Skilled judgment was provided in selection of appropriate interventions. Correct performance of therapeutic exercises was facilitated with verbal and visual cuing. Manual Therapy: 1: STM's to L UT and anterior shoulder 2: L GH gentle long axis distraction with PROM into flexion scaption and ER with gentle end stretching Skilled Intervention: Manual skills to improve joint mobility, ROM, and decrease pain. Utilized anatomy knowledge of the therapist, and assessment of patient's response to intervention. Billing: Blair: Therapeutic Exercise ([id number]): 1:1 time: 28 minutes (2 units: 23-37 mins) Manual Therapy ([id number]): 1:1 time: 12 minutes (1 unit: 8-22 mins) Total time / Length of visit: 40 minutes Jannet Ramos PTA documented in this encounter* Aishwarya Moffett (Sleep Medicine Physician) - 02/27/2020 3:36 PM EST Episode Visit Count: 3 Therapist That Will Oversee The Plan Of Care: Hima Molina Start of Care Date: 02/18/20 Onset Date: 01/07/20 Patient Identified by Name and Date of : Yes REHABILITATION AND SPORTS THERAPY PHYSICAL THERAPY TREATMENT NOTE ASSESSMENT: Danay Thompson demonstrated improved left shoulder AROM flexion from 128 deg to 139 deg, abduction 90 deg. Decreased scapula mobility. Noted left shoulder elevation performing AAROM. The patient will continue to benefit from ongoing skilled physical therapy to improve left shoulder ROM. PLAN FOR NEXT VISIT: continue PROM left shoulder , scapula SUBJECTIVE: Patient Reason for Visit: Patient reports left shoulder pain in morning. Performing nida once a day. Working. Pain: Pain Pain Level: 1 Pain Location: Shoulder - Left Description: Aching Frequency: Intermittent Post Treatment Pain Post Treatment Pain Level: 0 Post Treatment Pain Location: Shoulder - Left Post Treatment Pain Description: Aching OBJECTIVE MEASURES WITH LEVEL OF FUNCTION: UE PROM L Shoulder Flex: 139 Degrees(was 128) L Shoulder ABduction: 90 Degrees 7 weeks post L RC repair feb 24 TREATMENT: Therapeutic Exercise: 1: Nida flexion, scaption 3 sec hold x 15 each 2: wand extension 15 x 5 seconds 3: wand IR 15 x 5 seconds 4: stand wand L abduction x 10 6: Supine wand ER 15 9: posterior shoulder rolls x 15 10: scapula retraction x 15 Skilled Intervention: Patient was educated in proper exercise technique and purpose for exercises. Reviewed and educated patient on additions/changes for home exercise program as above (*) Skilled judgment was provided in selection of appropriate interventions. Provided written instruction for home exercise program to facilitate proper performance and compliance. Correct performance of therapeutic exercises was facilitated with verbal, visual and tactile cuing. Manual Therapy: 3: Soft tissue mobility to right upper/mid trapezius, pectoralis major/minor 4: Passive shoulder ROM right shoulder flexion, abduction, IR/ER 5: Scapular mobilization right medial/lateral Skilled Intervention: Manual skills to improve joint mobility, ROM, and decrease pain. Utilized anatomy knowledge of the therapist, and assessment of patient's response to intervention. Billing: Sue: Therapeutic Exercise ([id number]): 1:1 time: 23 minutes (2 units: 23-37 mins) Manual Therapy ([id number]): 1:1 time: 15 minutes (1 unit: 8-22 mins) Total time / Length of visit: 40 minutes Aishwarya Moffett PTA documented in this encounter* Aishwarya Moffett (Terrence) - 03/03/2020 3:36 PM EST Episode Visit Count: 4 Therapist That Will Oversee The Plan Of Care: Hima Molina Start of Care Date: 02/18/20 Onset Date: 01/07/20 Patient Identified by Name and Date of : Yes REHABILITATION AND SPORTS THERAPY PHYSICAL THERAPY TREATMENT NOTE ASSESSMENT: Danay Thompson demonstrated left shoulder elevation and lumbar lateral flexion lifting left arm overhead. Patient instructed not to lift gallon of milk. Decreased left shoulder flexion from 139 deg to 135 deg, pain end range. Tender in left biceps with Soft tissue mobility. Improved left shoulder abduction from 90 deg to 115 deg, pain end range. Noted decreased left scapula mobility. Added isometric left shoulder strength to HEP. The patient will continue to benefit from ongoing skilled physical therapy to improve left shoulder PROM, AAROM, AROM. PLAN FOR NEXT VISIT: continue left shoulder PROM SUBJECTIVE: Patient Reason for Visit: Pt reports left shoulder sore for one day after last visit. No pain or sorness today. Pt reports lifting gallon of milk. Pain: Pain Pain Level: 0 Pain Location: Shoulder - Left Post Treatment Pain Post Treatment Pain Level: 1 Post Treatment Pain Location: Shoulder - Left Post Treatment Pain Description: Aching OBJECTIVE MEASURES WITH LEVEL OF FUNCTION: UE PROM L Shoulder Flex: 135 Degrees(was 139) L Shoulder ABduction: 115 Degrees( was 90) TREATMENT: Therapeutic Exercise: 1: Nida, flexion and scaption 10 x 5 seconds each 2: wand extension 15 x 5 seconds 3: wand IR 15 x 5 seconds 4: stand wand L abduction x 10 5: *wall wash shoulder flexion, left scaption x 10 6: Supine wand ER 15 9: posterior shoulder rolls x 15 10: scapula retraction x 15 11: *L shoulder isometric flexion, extension add 5 sec hold x 10 Skilled Intervention: Patient was educated in proper exercise technique and purpose for exercises. Reviewed and educated patient on additions/changes for home exercise program as above (*) Skilled judgment was provided in selection of appropriate interventions. Provided written instruction for home exercise program to facilitate proper performance and compliance. Correct performance of therapeutic exercises was facilitated with verbal, visual and tactile cuing. Manual Therapy: 3: Soft tissue mobility to right upper/mid trapezius, pectoralis major/minor 4: Passive shoulder ROM right shoulder flexion, abduction, IR/ER 5: Scapular mobilization right medial/lateral Skilled Intervention: Manual skills to improve joint mobility, ROM, and decrease pain. Utilized anatomy knowledge of the therapist, and assessment of patient's response to intervention. Billing: Blair: Therapeutic Exercise ([id number]): 1:1 time: 25 minutes (2 units: 23-37 mins) Manual Therapy ([id number]): 1:1 time: 15 minutes (1 unit: 8-22 mins) Total time / Length of visit: 42 minutes Aishwarya Moffett PTA documented in this encounter* Aishwarya Moffett (Terrence) - 03/08/2020 1:48 PM EST Episode Visit Count: 5 Therapist That Will Oversee The Plan Of Care: Hima Molina Start of Care Date: 02/18/20 Onset Date: 01/07/20 Patient Identified by Name and Date of : Yes REHABILITATION AND SPORTS THERAPY PHYSICAL THERAPY TREATMENT NOTE ASSESSMENT: Danay Thompson demonstrated no soreness progressing isometric left shoulder strength,added to HEP. Left shoulder passive flexion improved from 135 deg to 143 deg. Pain end range PROM left shoulder. The patient will continue to benefit from ongoing skilled physical therapy to improve left shoulder ROM. PLAN FOR NEXT VISIT: continue left shoulder PROM, add UBE SUBJECTIVE: Patient Reason for Visit: Patient reports left shoulder sore after last visit for couple hours. Compliant with HEP. Pain: Pain Pain Level: 1 Pain Location: Shoulder - Left Description: Aching Frequency: Intermittent Post Treatment Pain Post Treatment Pain Level: 2 Post Treatment Pain Location: Shoulder - Left Post Treatment Pain Description: Aching OBJECTIVE MEASURES WITH LEVEL OF FUNCTION: UE PROM L Shoulder Flex: 143 Degrees(was 135) L Shoulder ABduction: 105 Degrees(115) TREATMENT: Therapeutic Exercise: 1: Nida flexion, scaption 3 sec hold x 15 each 2: wand extension 15 x 5 seconds 3: wand IR 15 x 5 seconds 5: wall wash CW/CCW 2 x 5 each 7: wall wash keft scaption x 10 11: L shoulder isometric flexion, extension add 5 sec hold x 10 12: *L shoulder isometric abd. IR,ER 5 sec hold x 10 13: supine wand flexion 5 sec hold x 10 Skilled Intervention: Patient was educated in proper exercise technique and purpose for exercises. Reviewed and educated patient on additions/changes for home exercise program as above (*) Skilled judgment was provided in selection of appropriate interventions. Provided written instruction for home exercise program to facilitate proper performance and compliance. Correct performance of therapeutic exercises was facilitated with verbal, visual and tactile cuing. Manual Therapy: 3: Soft tissue mobility to right upper/mid trapezius, pectoralis major/minor 4: Passive shoulder ROM right shoulder flexion, abduction, IR/ER 5: Scapular mobilization right medial/lateral Skilled Intervention: Manual skills to improve joint mobility, ROM, and decrease pain. Utilized anatomy knowledge of the therapist, and assessment of patient's response to intervention. Billing: Blair: Therapeutic Exercise ([id number]): 1:1 time: 28 minutes (2 units: 23-37 mins) Manual Therapy ([id number]): 1:1 time: 10 minutes (1 unit: 8-22 mins) Total time / Length of visit: 40 minutes Aishwarya Moffett PTA documented in this encounter* Hima Molina (Pt) - 03/17/2020 3:43 PM EST Episode Visit Count: 8 Therapist That Will Oversee The Plan Of Care: Hima Molina Start of Care Date: 02/18/20 Onset Date: 01/07/20 Patient Identified by Name and Date of : Yes REHABILITATION AND SPORTS THERAPY PHYSICAL THERAPY PROGRESS REPORT PLAN OF CARE UPDATE: Assessment: Danay Donna exhibits good progress towards therapy goals over initial course of therapy. Pt's pain continues to be well controlled, pt's worst pain over last week is < 1/10. Pt continues to have stiffness but severity is less intense than at start of therapy. Pt demonstrates good progress in regards to shoulder ROM/strength in all planes. Shoulder flexion has increased from 90at eval to 130 currently and functional shoulder IR from sacral region to upper lumbar. As a result, pt has improved tolerance for ADLs and self care activities. Pt will benefit from continued skilled therapy to progress shoulder ROM/strength in all planes and functional training to further minimize functional limitations. Functional gains: Improved tolerance for self care activities/ADLs Improved sleep Improved quality of movement Increased independence with HEP Increased ROM Increased strength Decreased intensity of pain Decreased frequency of pain Patient will improve L shoulder elevation AROM to > 120 and functional shoulder IR to upper lumbar region---Achieved -Patient will improve L shoulder strength to > 4-5 in all planes---Achieved -Patient will improve L shoulder strength to 5/5 in all planes---new goal created 03/17/2020 --Patient will have no difficulty sleeping through the night without interruption from shoulder sxs---Achieved -Patient will improve L shoulder PROM with in 80% of contralateral side---Partially Achieved [place] in home exercise program---Achieved Patient will decrease pain rating by 2 points to meet minimal clinical important difference for numeric pain rating scale---Achieved Planned Interventions, Frequency, and Duration: 2x/week, 4 weeks Total Number of Visits Planned: 6 Patient to be seen for Therapeutic exercise;Neuromuscular re-education;Manual therapy;Therapeutic activities;Self-retirement management;Patient/Family/Caregiver Education;Body Mechanics Training;Functional training Prognosis: Good Good due to: current objective clinical presentation SUBJECTIVE: Patient Reason for Visit: Pt had a f/u with surgeon and was given a good report. Pt is appropriate to slowly progress to strengthening. Pt states that sxs continue to remain well controlled, pt experiences minimal pain. Pt notes that the stiffness has improved but is still there. Pt is open to continuing therapy., . Pain: Pain Pain Level: 0(worst pain over last week: < 1/10) Pain Location: Shoulder - Left Description: Stiffness Frequency: Intermittent Post Treatment Pain Post Treatment Pain Level: No Change PROMIS Scales T-scores: mean of general population = 50. 5 points is clinically meaningfully difference Percentiles provide an indication of how the patient's score ranks in relation to the general population. Higher percentile rankings indicate better function/quality of life. 50th percentile is the average of the general population and indicates half of respondents had a worse score. T-scores: mean of general population = 50. 5 points is clinically meaningfully difference Percentiles provide an indication of how the patient's score ranks in relation to the general population. Higher percentile rankings indicate better function/quality of life. 50th percentile is the average of the general population and indicates half of respondents had a worse score. OBJECTIVE MEASURES WITH LEVEL OF FUNCTION: UE AROM L Shoulder Flex: 130 Degrees L Shoulder ABduction: 125 Degrees L Shoulder Internal Rotation (Functional): L1 L Shoulder External Rotation (Functional): min limitation UE PROM L Shoulder Flex: 150 Degrees(mild stiffness at end range) L Shoulder ABduction: 135 Degrees(mild stiffness at end range) L Shoulder Internal Rotation: 45 Degrees(arm by side) L Shoulder External Rotation: 45 Degrees(arm by side) UE and Cervical Strength L Shoulder Flexion: 4-/5 L Shoulder Abduction (C5): 4-/5 L Shoulder Internal Rotation: 4/5 L Shoulder External Rotation: 4-/5 TREATMENT: Therapeutic Exercise: 1: reassessment performed 2: air dyne, UE only, x 5 min 3: *pulleys, flexion/abduction review 4: *shoulder flexion AAROM, supine with wand, 3 sechold x 15 5: *shoulder ABD AAROM, supine with wand x 10, standing, 3 sec hold x 15 6: *shoulder ER AAROM, supine with wand, 3 sec hold x 15 7: *shoulder IR AAROM, nida, review 8: *shoulder isometrics, review Skilled Intervention: Patient was educated in proper exercise technique and purpose for exercises. Reviewed and educated patient on additions/changes for home exercise program as above (*) Manual Therapy: 1: shoulder elevation PROM in all planes 2: shoulder IR/ER PROM with arm by side Skilled Intervention: Manual skills to improve joint mobility, ROM, and decrease pain. Utilized anatomy knowledge of the therapist, and assessment of patient's response to intervention. Billing: PT Services: Therapeutic Exercise ([id number]): 1:1 time: 30 minutes (2 units: 23-37 mins) Manual Therapy ([id number]): 1:1 time: 15 minutes (1 unit: 8-22 mins) Total time: 45 minutes Hima Molina PT documented in this encounter* Jannet Ramos (Sleep Medicine Physician) - 03/24/2020 4:25 PM EST Episode Visit Count: 9 Therapist That Will Oversee The Plan Of Care: Hima Molina Start of Care Date: 02/18/20 Onset Date: 01/07/20 [facility]ABIL[facility]ATION [facility]ORTS [facility]ERAP[facility] PHYSICAL THERAPY TREATMENT NOTE ASSESSMENT: Danay Donna limited flexion and IR behind back. Patient is able to progress to phase III this session without increase in discomfort. Improved active flexion is noted. The patient will continue to benefit from ongoing skilled physical therapy for strengthening and flexibility PLAN FOR NEXT VISIT: Monitor response with addition of strengthening exercises. SUBJECTIVE: Patient Reason for Visit: Patient is getting better with reaching. Able to shampoo hair. Pain: Pain Pain Level: 0 Pain Location: Shoulder - Left Post Treatment Pain Post Treatment Pain Level: No Change OBJECTIVE MEASURES WITH LEVEL OF FUNCTION: UE AROM L Shoulder Flex: 138 Degrees TREATMENT: Therapeutic Exercise: 2: air dyne, seat 2, UE only, x 5 min 3: *wall walk into flexion and abduction with eccentric lower 5 reps x 5 seconds 4: *IR stretch 3 x 15 5: *ER doorway stretch 3 x 15 seconds 6: Standing alterate flexion 10 x 7: *IR with yellow tb x 10 8: * ER with yellow tb x 10 Skilled Intervention: Patient was educated in proper exercise technique and purpose for exercises. Reviewed and educated patient on additions/changes for home exercise program as above (*) Skilled judgment was provided in selection of appropriate interventions. Provided written instruction for home exercise program to facilitate proper performance and compliance. Correct performance of therapeutic exercises was facilitated with verbal and visual cuing. Billing: Blair: Therapeutic Exercise ([id number]): 1:1 time: 42 minutes (3 units: 38-52 mins) Total time / Length of visit: 44 minutes Jannet Ramos PTA documented in this encounter* Jannet Ramos (Terrence) - 03/29/2020 4:52 PM EST Episode Visit Count: 10 Therapist That Will Oversee The Plan Of Care: Hima Molina Start of Care Date: 02/18/20 Onset Date: 01/07/20 REHABILITATION AND SPORTS THERAPY PHYSICAL THERAPY TREATMENT NOTE ASSESSMENT: Danay Thompson demonstrated no change in active flexion, improved abduction and improve IR behind back. Patient able to progress into strengthening without discomfort. The patient will continue to benefit from ongoing skilled physical therapy for strengthening PLAN FOR NEXT VISIT: Attempt weight transfer SUBJECTIVE: Patient Reason for Visit: Patient reports, she is able to reach into cupboards and behind back, (to a degree) Pain: Pain Pain Level: 0 Pain Location: Shoulder - Left Post Treatment Pain Post Treatment Pain Level: No Change OBJECTIVE MEASURES WITH LEVEL OF FUNCTION: UE AROM L Shoulder Flex: 138 Degrees L Shoulder ABduction: 129 Degrees L Shoulder Internal Rotation (Functional): T12 TREATMENT: Therapeutic Exercise: 1: Scifit, seat 8, L 2.5 , 5 minutes change at half 3: *wall walk into flexion and abduction with eccentric lower 5 reps x 5 seconds 4: *IR stretch 3 x 15 5: *Hi ER doorway stretch 3 x 15 seconds 6: Standing alterate flexion 10 x 7: *IR with yellow tb 10 x 2 8: * ER with yellow tb 10 x 2 9: *bilateral flexion with 1 # x 10 10: *Bilateral abduction with 1 # , x 10 11: *rows and pulldowns with orange tb 10 x 2 12: *L adduction with yellow tb x 10 Skilled Intervention: Patient was educated in proper exercise technique and purpose for exercises. Reviewed and educated patient on additions/changes for home exercise program as above (*) Skilled judgment was provided in selection of appropriate interventions. Provided written instruction for home exercise program to facilitate proper performance and compliance. Correct performance of therapeutic exercises was facilitated with verbal and visual cuing. Manual Therapy: 2: Gentle GH inferior and posterior glides 3: L GH gentle distraction with passive flexion abduction and ER with gentle end stretching Skilled Intervention: Manual skills to improve joint mobility, ROM, and decrease pain. Utilized anatomy knowledge of the therapist, and assessment of patient's response to intervention. Billing: Blair: Therapeutic Exercise ([id number]): 1:1 time: 33 minutes (2 units: 23-37 mins) Manual Therapy ([id number]): 1:1 time: 14 minutes (1 unit: 8-22 mins) Total time / Length of visit: 47 minutes Jannet Ramos PTA documented in this encounter* Susy Sommers (Sleep Medicine Physician) - 03/31/2020 12:18 PM EST Episode Visit Count: 11 Therapist That Will Oversee The Plan Of Care: Hima Molina Start of Care Date: 02/18/20 Onset Date: 01/07/20 Patient Identified by Name and Date of : Yes REHABILITATION AND SPORTS THERAPY PHYSICAL THERAPY TREATMENT NOTE ASSESSMENT: Danay Thompson demonstrated improvements in left shoulder ROM. The patient will continue to benefit from ongoing skilled physical therapy for left shoulder strengthening and ROM. PLAN FOR NEXT VISIT: Monitor tolerance to today's visit. SUBJECTIVE: Patient Reason for Visit: Pt states she continues to get random stiffness in the L shoulder. She states she had a little achiness this AM, but that's starting to get less, and less. Pain: Pain Pain Level: 0 Pain Location: Shoulder - Left Description: Stiffness Frequency: Intermittent Post Treatment Pain Post Treatment Pain Level: 0 OBJECTIVE MEASURES WITH LEVEL OF FUNCTION: Posture / Alignment Posture: Increased thoracic kyphosis;Forward head;Rounded shoulders UE PROM L Shoulder Flex: 173 Degrees(in mild scaption) L Shoulder ABduction: 140 Degrees L Shoulder Internal Rotation: 50 Degrees(~40 degrees abd) L Shoulder External Rotation: 65 Degrees(~20 degrees abd; end range tightness) TREATMENT: Therapeutic Exercise: 1: Scifit, seat 8, L 2.5 , 5 minutes change at half 5: Hi ER doorway stretch 3 x 20 seconds 12: scap set with L adduction with yellow tband, 2 x 10 13: weight transfers: 1, 2, and 3#, (37<> 58) x 10 each straight, and x 10 each D1 and D2 flexion Skilled Intervention: Patient was educated in proper exercise technique and purpose for exercises. Skilled judgment was provided in selection of appropriate interventions. Correct performance of therapeutic exercises was facilitated with verbal and visual cuing. Manual Therapy: 2: supine post, lat, and inferior glides L 5: medial/lateral scap mobs L 6: MET for flexion, IR, and ER Skilled Intervention: Manual skills to improve joint mobility, ROM, and decrease pain. Utilized anatomy knowledge of the therapist, and assessment of patient's response to intervention. Billing: Blair: Therapeutic Exercise ([id number]): 1:1 time: 25 minutes (2 units: 23-37 mins) Manual Therapy ([id number]): 1:1 time: `5 minutes (1 unit: 8-22 mins) Total time / Length of visit: 44 minutes Susy Sommers PTA documented in this encounter* Jannet Ramos (Terrence) - 04/07/2020 4:25 PM EST Episode Visit Count: 12 Therapist That Will Oversee The Plan Of Care: Hima Molina Start of Care Date: 02/18/20 Onset Date: 01/07/20 REHABILITATION [facility]ORTS [facility]ERAPY PHYSICAL THERAPY TREATMENT NOTE ASSESSMENT: Danay Thompson continues to progress slowly with AROM in left shoulder. Patient is challenged with Hannah pushing movement. The patient will continue to benefit from ongoing skilled physical therapy for AROM and strengthening. PLAN FOR NEXT VISIT: Add wall push up and sled push/pull, crate lift SUBJECTIVE: Patient Reason for Visit: Patient reports that she can now reach top shelf in cabinets.Patient is sleeping through night. Pain: Pain Pain Level: 0 Pain Location: Shoulder - Left Post Treatment Pain Post Treatment Pain Level: 0 OBJECTIVE MEASURES WITH LEVEL OF FUNCTION: UE AROM L Shoulder Flex: 142 Degrees L Shoulder ABduction: 140 Degrees L Shoulder Internal Rotation (Functional): T11 L Shoulder External Rotation (Functional): T1 TREATMENT: Therapeutic Exercise: 1: Scifit, seat 8, L 3.5 , 5 minutes change at half 3: *wall walk into flexion and abduction with eccentric lower 5 reps x 5 seconds 5: Hi ER doorway stretch 3 x 20 seconds 7: *IR with orange tb 10 x 2 8: * ER with orange 10 x 2 10: core ball diagonals, with 6 # corebal x 10 11: Kemp ,push/ pull , (pulling with 7.8 resistance, pushing out with 6.0 resistance x 10 each 12: BOING into flexion and abduction at 90 degrees 3 x 15 seconds 13: bicep curl , palm up and palm in ), with 5 # , 10 reps each Skilled Intervention: Patient was educated in proper exercise technique and purpose for exercises. Skilled judgment was provided in selection of appropriate interventions. Correct performance of therapeutic exercises was facilitated with verbal and visual cuing. Issued [employer] Billing: Blair: Therapeutic Exercise ([id number]): 1:1 time: 43 minutes (3 units: 38-52 mins) Total time / Length of visit: 45 minutes Jannet Ramos PTA documented in this encounter* Jannet Ramos) - 04/12/2020 4:07 PM EST Episode Visit Count: 13 Therapist That Will Oversee The Plan Of Care: Hima Molina Start of Care Date: 02/18/20 Onset Date: 01/07/20 REHABILITATION AND [facility]ORTS THERAPY PHYSICAL THERAPY TREATMENT NOTE ASSESSMENT: Danay Donna is challenged with Hannah push outs and notes one episode of 'popping'in left shoulder, (no pain) . Patient exhibits difficulty/lack of co-ordination with overhead plyoball toss, reverting to a chest press with increased repetitions. Patients scapular stabilization endu gabby is challenged with BOING exercise. Active flexion is improving. PLAN FOR NEXT VISIT: Recheck with possible discharge SUBJECTIVE: Patient Reason for Visit: Patient reports no difficulties with home activities. No paincomplaints Pain: Pain Pain Level: 0 Pain Location: Shoulder - Left Post Treatment Pain Post Treatment Pain Level: 0 Post Treatment Pain Location: Shoulder - Left OBJECTIVE MEASURES WITH LEVEL OF FUNCTION: UE AROM L Shoulder Flex: 149 Degrees L Shoulder ABduction: 144 Degrees L Shoulder Internal Rotation (Functional): T10 TREATMENT: Therapeutic Exercise: 1: Scifit, seat 8, L4.0 , 4 minutes change at half 3: *wall walk into flexion and abduction with eccentric lower 5 reps x 5 seconds 5: Hi ER doorway stretch 3 x 20 seconds 6: *wall push up with plus 10 x 2 8: BOING into flexion and abduction at 90 degrees 3 x 20 seconds 9: stiring the pot with 2 #, in/out, x 10 each Skilled Intervention: Patient was educated in proper exercise technique and purpose for exercises. Reviewed and educated patient on additions/changes for home exercise program as above (*) Skilled judgment was provided in selection of appropriate interventions. Provided written instruction for home exercise program to facilitate proper performance and compliance. Correct performance of therapeutic exercises was facilitated with verbal and visual cuing. Therapeutic Activity: 1: *sled push, 22 pounds 120 feet x 2 2: Hannah ,push/ pull , with 6.3 resistance 10 x 2 each 3: plyoball chest press, 2 #, x 10 4: Plyoball overhead toss with 2 # x 10 5: L shoulder overhand toss with 2# , x 10 6: *core ball diagonals, with 6 # coreball x 15, ( tband and dumbell instruction for HEP) Skilled Intervention: Instructed on proper lifting and carrying techniques with importance of core activation. Educated on proper/safe technique for activities performed today. Activity progression based on professional judgment. Billing: Blair: Therapeutic Exercise ([id number]): 1:1 time: 25 minutes (2 units: 23-37 mins) Therapeutic Activity ([id number]): 1:1 time: 20 minutes (1 unit: 8-22 mins) Total time / Length of visit: 46 minutes Jannet Ramos PTA documented in this encounter* Aishwarya Moffett (Sleep Medicine Physician) - 03/10/2020 2:04 PM EST Episode Visit Count: 6 Therapist That Will Oversee The Plan Of Care: Hima Molina Start of Care Date: 02/18/20 Onset Date: 01/07/20 Patient Identified by Name and Date of : Yes REHABILITATION AND SPORTS THERAPY PHYSICAL THERAPY TREATMENT NOTE ASSESSMENT: Danay Thompson demonstrated improved left shoulder strength without soreness. Tactilecuing to correct left elevated shoulder with exercises. No pain performing UBE. Left shoulder PROM flexion 145 deg was 143 deg, abduction 105 deg , no change. Anterior left shoulder pain with PROM. The patient will continue to benefit from ongoing skilled physical therapy to improve left shoulder PROM. PLAN FOR NEXT VISIT: continue left shoulder AA/PROM SUBJECTIVE: Patient Reason for Visit: Patient reports went home After last visit and performed addition HEP. Woke that night with increased left shoulder pain, ice and pain went away. Left shoulder stiff today. Pain: Pain Pain Level: 1 Pain Location: Shoulder - Left Description: Stiffness Frequency: Continuous Post Treatment Pain Post Treatment Pain Level: 0 Post Treatment Pain Location: Shoulder - Left Post Treatment Pain Description: Stiffness OBJECTIVE MEASURES WITH LEVEL OF FUNCTION: UE PROM L Shoulder Flex: 145 Degrees(was 143) L Shoulder ABduction: 105 Degrees(no change) 9 weeks post L RC repair dec 2 TREATMENT: Therapeutic Exercise: 1: Nida flexion, scaption 3 sec hold x 15 each 4: SCifit UBE seat 7 , R1.0 , 4 minutes forward , 1 minute retro 5: wall wash CW/CCW 2 x 5 each 7: wall wash left scaption x 15 9: posterior shoulder rolls x 15 10: scapula retraction x 15 Skilled Intervention: Patient was educated in proper exercise technique and purpose for exercises. Skilled judgment was provided in selection of appropriate interventions. Provided written instruction for home exercise program to facilitate proper performance and compliance. Manual Therapy: 2: side lying right, left scapula medial mobilization 3: Soft tissue mobility to right upper/mid trapezius, pectoralis major/minor 4: Passive shoulder ROM right shoulder flexion, abduction, IR/ER Skilled Intervention: Manual skills to improve joint mobility, ROM, and decrease pain. Utilized anatomy knowledge of the therapist, and assessment of patient's response to intervention. Billing: Blair: Therapeutic Exercise ([id number]): 1:1 time: 25 minutes (2 units: 23-37 mins) Manual Therapy ([id number]): 1:1 time: 13 minutes (1 unit: 8-22 mins) Total time / Length of visit: 40 minutes Aishwarya Moffett PTA documented in this encounter* Jannet Ramos (Sleep Medicine Physician) - 03/15/2020 4:01 PM EST Episode Visit Count: 7 Therapist That Will Oversee The Plan Of Care: Hima Molina Start of Care Date: 02/18/20 Onset Date: 01/07/20 REHABILITATION AND [facility]ORTS THERAPY PHYSICAL THERAPY TREATMENT NOTE ASSESSMENT: Danay Donna demonstrated difficulty initially with avoiding substitution with IR behind back. Patient is able to progress into active flexion and abduction versus gravity. The patient will continue to benefit from ongoing skilled physical therapy for flexibility and strengthening PLAN FOR NEXT VISIT: Continue with AROM , add ER stretch SUBJECTIVE: Patient Reason for Visit: Patient reports The shoulder is a little achy in the morning but that goes away quick. Pt is able to now wash her hair. Pain: Pain Pain Level: 0 Pain Location: Shoulder - Left Post Treatment Pain Post Treatment Pain Level: 0 Post Treatment Pain Location: Shoulder - Left OBJECTIVE MEASURES WITH LEVEL OF FUNCTION: UE AROM L Shoulder Flex: 128 Degrees L Shoulder ABduction: 105 Degrees L Shoulder Internal Rotation (Functional): L1 L Shoulder External Rotation (Functional): C4 TREATMENT: Therapeutic Exercise: 1: Nida flexion, scaption 3 sec hold x 15 each 2: Scifit , seat 7 , 4 minutes change at half 3: Active flexion alternate x 5 4: simulatanouoes abduction 5: wall walk into flexion and abduction 5 x 5 seconds 6: L shoulder isometrics, all planes 5 x 5 seconds 7: Nida IR 10 x 5 seconds 10: scapula retraction x 15 Skilled Intervention: Patient was educated in proper exercise technique and purpose for exercises. Skilled judgment was provided in selection of appropriate interventions. Correct performance of therapeutic exercises was facilitated with verbal and visual cuing. Manual Therapy: 1: L upward rotation scapula mobs 2: STM's to L UT 3: L GH gentle distraction with passive flexion abduction and ER with gentle end stretching Skilled Intervention: Manual skills to improve joint mobility, ROM, and decrease pain. Utilized anatomy knowledge of the therapist, and assessment of patient's response to intervention. Billing: Blair: Therapeutic Exercise ([id number]): 1:1 time: 32 minutes (2 units: 23-37 mins) Manual Therapy ([id number]): 1:1 time: 14 minutes (1 unit: 8-22 mins) Total time / Length of visit: 47 minutes Jannet Ramos PTA documented in this encounter* Luciano Torres MD - 04/26/2020 11:26 AM EST Dictation on: 04/26/2020 11:28 AM by: LUCIANO TORRES [[id number]] documented in this encounter* Luciano Torres MD - 11/19/2019 4:29 PM EDT Dictation on: 11/19/2019 4:33 PM by: LUCIANO TORRES [[id number]] documented in this encounter* Luciano Torres MD - 02/12/2020 9:14 AM EST Danay is seen for followup of her left rotator cuff repair. It is almost 6 weeks now. She is really doing pretty well, having little pain. Wound is excellent. Passively, we can abduct to 90 degreesnow. I have shown her range of motion exercises, active passive and passive assisted. We will send her to physical therapy as well, and I cautioned her against any rough lifting activities, and I will see her back in 4 weeks. documented in this encounter* Hima Molina (Pt) - 04/16/2020 4:37 PM EST Episode Visit Count: 14 Therapist That Will Oversee The Plan Of Care: Hima Molina Start of Care Date: 02/18/20 Onset Date: 01/07/20 Patient Identified by Name and Date of : Yes REHABILITATION AND SPORTS THERAPY PHYSICAL THERAPY PROGRESS REPORT PLAN OF CARE UPDATE: Assessment: Danay Thompson exhibits good progress towards therapy goals over course of POC. Pt's sxs remain well controlled, pt has not experienced any pain over the last several weeks. Pt has improved shoulder AROM/strength in all planes. Pt's shoulder elevation AROM is > 140 and functional shoulder IR is to low thoracic region. Pt does continue to demonstrate shoulder weakness, however this is to be expected with RC repair. Pt's HEP was updated to target remaining strength deficits. Pt to f/u with therapy in 1 month (as needed) to ensure progression of shoulder strength to further improve tolerance for heavy and strenuous UE activities. Functional gains: Improved tolerance for self care activities ADLs Improved quality of movement Increased independence with HEP Increased ROM Increased strength Decreased intensity of pain Decreased frequency of pain Patient will improve L shoulder elevation AROM to > 120 and functional shoulder IR to upper lumbar region---Achieved -Patient will improve L shoulder strength to > 4-5 in all planes---Achieved -Patient will improve L shoulder strength to 5/5 in all planes------partially Achieved --Patient will have no difficulty sleeping through the night without interruption from shoulder sxs---Achieved -Patient will improve L shoulder PROM with in 80% of contralateral side---Partially Achieved [place] in home exercise program---Achieved Patient will decrease pain rating by 2 points to meet minimal clinical important difference for numeric pain rating scale---Achieved Planned Interventions, Frequency, and Duration: 1x/month, 4 weeks Total Number of Visits Planned: 1 Patient to be seen for Therapeutic exercise;Neuromuscular re-education;Manual therapy;Therapeutic activities;Self-retirement management;Patient/Family/Caregiver Education;Body Mechanics Training;Functional training Prognosis: Good Good due to: current objective clinical presentation SUBJECTIVE: Patient Reason for Visit: Pt reports a significant improvement since starting therapy in regards to shoulder ROM/function. Pt's sxs have been well controlled since surgery. pt denies any currently functional limtiations. . Pain: Pain Pain Level: 0 Pain Location: Shoulder - Left Post Treatment Pain Post Treatment Pain Level: No Change PROMIS Scales T-scores: mean of general population = 50. 5 points is clinically meaningfully difference Percentiles provide an indication of how the patient's score ranks in relation to the general population. Higher percentile rankings indicate better function/quality of life. 50th percentile is the average of the general population and indicates half of respondents had a worse score. T-scores: mean of general population = 50. 5 points is clinically meaningfully difference Percentiles provide an indication of how the patient's score ranks in relation to the general population. Higher percentile rankings indicate better function/quality of life. 50th percentile is the average of the general population and indicates half of respondents had a worse score. OBJECTIVE MEASURES WITH LEVEL OF FUNCTION: Posture / Alignment Posture: Increased thoracic kyphosis;Forward head;Rounded shoulders UE AROM L Shoulder Flex: 140 Degrees L Shoulder Internal Rotation (Functional): T12, lateral to midline L Shoulder External Rotation: 45 Degrees UE PROM L Shoulder Flex: 170 Degrees L Shoulder ABduction: 160 Degrees L Shoulder Internal Rotation: 20 Degrees(at 90) L Shoulder External Rotation: 80 Degrees(at 90) UE Joint Mobility L Shoulder joint mobility: Hypomobile UE and Cervical Strength L Shoulder Flexion: 4-/5 L Shoulder Abduction (C5): 4/5 L Shoulder Internal Rotation: 4+/5 L Shoulder External Rotation: 4-/5 TREATMENT: Therapeutic Exercise: 1: scit fit, x 5 min 2: reassessment performed 3: *scaption, #1, x 15, against wall for postural curing 4: *shoulder flexion, #1, x 15, against wall for postural cuing 5: *shoulder row, review 6: *shoulder extension, review 7: *D2 flexion, review 8: *shoulder IR/ER band, review 9: *shoulder pulleys, review 10: *shoulder wand exerciese, erview 11: *shoulder ER, S/l, #3, 2 x 15 Skilled Intervention: Patient was educated in proper exercise technique and purpose for exercises. Reviewed and educated patient on additions/changes for home exercise program as above (*) Billing: PT Services: Therapeutic Exercise ([id number]): 1:1 time: 30 minutes (2 units: 23-37 mins) Total time: 30 minutes Hima Molina PT documented in this encounter* Luciano Torres MD - 03/16/2020 11:29 AM EST Dictation on: 03/16/2020 11:30 AM by: LUCIANO TORRES [[id number]] documented in this encounter Assessments Diagnosis Tear of left rotator cuff, unspecified tear extent, unspecified whether traumatic- Primary Diagnosis S/P arthroscopy of left shoulder- Primary Diagnosis Shoulder stiffness, left- Primary Weakness of left arm Other musculoskeletal symptoms referable to limbs Diagnosis Tear of left rotator cuff, unspecified tear extent, unspecified whether traumatic- Primary S/P arthroscopy of left shoulder Diagnosis Tear of left rotator cuff, unspecified tear extent, unspecified whether traumatic Procedure Findings Note PROCEDURE DETAILS Preoperati ve Diagnosis: Rotator cuff tear, left, M75.102 Postoperative Diagnosis: Rotator cuff tear, left, M75.102 Surgeon: Luciano Torres Resident/Fellow/Other [employer] Product Manager: Shanti Rodgers Procedure: 1. L ARTHORSCOPY ASSISTED MINI OPEN RCR Anesthesia: Devonte Wilkins Estimated Blood Loss: 20 cc Findings: Full-thickness left rotator cuff tear Specimens(s) Collected: no, Complications: None Operative Report: Patient was taken to the operating room placed in a supine position given adequate general anesthetic she had previously been given a interscalene block. She is placed in the beachchair and the skin of the left shoulder was prepped and draped in usual sterile fashion. I established a posterior portal. And then looked into the glenohumeral joint the joint itself looked healthy there were minor degenerative changes rotator cuff tendon could be seen torn superiorly and the biceps tendon was intact labrums were frayed but degenerative in nature. I then put the scope (more content not included)... Reason for Referral Status Reason Specialty Diagnoses / Procedures Referred By Contact Referred To Contact New Request Diagnoses Tear of left rotator cuff, unspecified tear extent, unspecified whether traumatic Procedures MR Shoulder Left Without [place] [address] Status Reason Specialty Diagnoses / Procedures Referred By Contact Referred To Contact Authorized Patient Preference Physical Therapy Diagnoses S/P arthroscopy of left shoulder [place] [address] Chief Complaint and Reason for Visit Chief Complaint medication refills & Labs drawn Reason for Visit Hypothyroidism Malnutrition Hypertension Additional Source Comments INFORMATION SOURCE (unrecogn ized section and content) DATE CREATED AUTHOR 09/27/2017 [facility] DATE CREATED AUTHOR AUTHOR'S ORGANIZ ATION 01/06/2020 [facility] DATE CREATED AUTHOR AUTHOR'S ORGANIZ ATION 01/15/2020 [facility] DATE CREATED AUTHOR AUTHOR'S ORGANIZ ATION 04/26/2020 [facility] DATE CREATED AUTHOR AUTHOR'S ORGANIZ ATION 05/26/2020 [facility] DATE CREATED AUTHOR AUTHOR'S ORGANIZ ATION 06/30/2021 [facility] DATE CREATED AUTHOR AUTHOR'S ORGANIZ ATION 10/26/2021 [facility] DATE CREATED AUTHOR AUTHOR'S ORGANIZ ATION 02/09/2022 [facility] DATE CREATED AUTHOR AUTHOR'S ORGANIZ ATION 09/16/2023 [facility] DATE CREATED AUTHOR AUTHOR'S ORGANIZ ATION 01/01/2025 [facility] Reason for Visit (unrecogniz ed section and content) Reason Comments PT Progress Note Status Reason Specialty Diagnoses / Procedures Referred By Contact Referred To Contact Outside PCP PHYSICAL THERAPY Diagnoses Shoulder stiffness, left [M25.612] Weakness of left arm [R29.898] RECHECK Procedures EST RS PT ORTH Luciano [address] [place] [address] Hima Molina (Pt) [address] [place] [address] Reason Comments Physical Therapy Status Reason Specialty Diagnoses / Procedures Referred By Contact Referred To Contact Authorized Physical Therapy / PHYSICAL THERAPY Diagnoses rotator cuff surgery Procedures NEW RS PT ORTH Luciano [address] [place] [address] Hima Molina (Pt) [address] [place] [address] Reason Comments Follow-up Reason Comments Follow-up Suture / Staple Removal Reason Comments PT Eval Status Reason Specialty Diagnoses / Procedures Referred By Contact Referred To Contact Outside PCP Physical Therapy / PHYSICAL THERAPY Diagnoses Shoulder stiffness, left [M25.612] Weakness of left arm [R29.898] Procedures EST RS PT ORTH K Luciano Torres [address] [place] [address] Hima Molina (Pt) [address] [place] [address] Reason Comments Pain Reason Comments Follow-up Reason Comments Earache Left ear discomfort X 1 week Source Comments (unrecognize d section and content) In the event this informatio n is protected by the Federal Confidentiality of Alcohol and Drug Abuse Patient Records regulations: The Federal rules restrict any use of the information to criminally investigate or prosecute any alcohol or drug abuse patient.[facility] the event this information is protected by the Federal Confidentiality of Alcohol and Drug Abuse Patient Records regulations: The Federal rules restrict any use of the information to criminally investigate or prosecute any alcohol or drug abuse patient.[facility] the event this information is protected by the Federal Confidentiality of Alcohol and Drug Abuse Patient Records regulations: The Federal rules restrict any use of the information to criminally investigate or prosecute any alcohol or drug abuse patient.[facility] the event this information is protected by the Federal Confidentiality of Alcohol and Drug Abuse Patient Records regulations: The Federal rules restrict any use of the information to criminally investigate or prosecute any alcohol or drug abuse patient.[facility] the event this information is protected by the Federal Confidentiality of Alcohol and Drug Abuse Patient Records regulations: The Federal rules restrict any use of the information to criminally investigate or prosecute any alcohol or drug abuse patient.[facility] the event this information is protected by the Federal Confidentiality of Alcohol and Drug Abuse Patient Records regulations: The Federal rules restrict any use of the information to criminally investigate or prosecute any alcohol or drug abuse patient.[facility] the event this information is protected by the Federal Confidentiality of Alcohol and Drug Abuse Patient Records regulations: The Federal rules restrict any use of the information to criminally investigate or prosecute any alcohol or drug abuse patient.[facility] the event this information is protected by the Federal Confidentiality of Alcohol and Drug Abuse Patient Records regulations: The Federal rules restrict any use of the information to criminally investigate or prosecute any alcohol or drug abuse patient.[facility] the event this information is protected by the Federal Confidentiality of Alcohol and Drug Abuse Patient Records regulations: The Federal rules restrict any use of the information to criminally investigate or prosecute any alcohol or drug abuse patient.[facility] the event this information is protected by the Federal Confidentiality of Alcohol and Drug Abuse Patient Records regulations: The Federal rules restrict any use of the information to criminally investigate or prosecute any alcohol or drug abuse patient.[facility] the event this information is protected by the Federal Confidentiality of Alcohol and Drug Abuse Patient Records regulations: The Federal rules restrict any use of the information to criminally investigate or prosecute any alcohol or drug abuse patient.[facility] the event this information is protected by the Federal Confidentiality of Alcohol and Drug Abuse Patient Records regulations: The Federal rules restrict any use of the information to criminally investigate or prosecute any alcohol or drug abuse patient.[facility] Hospital[facility] the event this information is protected by the Federal Confidentiality of Alcohol and Drug Abuse Patient Records regulations: The Federal rules restrict any use of the information to criminally investigate or prosecute any alcohol or drug abuse patient.[facility] Hospital[facility] the event this information is protected by the Federal Confidentiality of Alcohol and Drug Abuse Patient Records regulations: The Federal rules restrict any use of the information to criminally investigate or prosecute any alcohol or drug abuse patient.[facility] Care Teams (unrecognized sec tion and content) Scout Leaser Relationship Specialty Start Date End Date Aleksandra Aguiar [address] [place] [address] PCP - General Nurse Practitioner 11/03/19 Scout Leaser Relationship Specialty Start Date End Date Aleksandra Aguiar [address] [place], [place] [id number] PCP - General 11/03/19 Scout Leaser Relationship Specialty Start Date End Date Aleksandra Aguiar [address] [place], [place] [id number] PCP - General 11/03/19 Scout Leaser Relationship Specialty Start Date End Date Aleksandra Aguiar [address] [place], [place] [phone] PCP - General 11/03/19 Scout Leaser Relationship Specialty Start Date End Date Aguiar, Dora BALBIR [employer] DIRECTOR [address] After Hours [facility] [place], [place] [id number] PCP - General 12/09/19 Scout Leaser Relationship Specialty Start Date End Date Aleksandra Aguiar [address] [place], [place] [id number] PCP - General 11/03/19 Scout Leaser Relationship Specialty Start Date End Date Aleksandra Aguiar [address] [place], [place] [id number] PCP - General 11/03/19 Scout Leaser Relationship Specialty Start Date End Date Aleksandra Aguiar [address] [place], [place] [id number] PCP - General 11/03/19 Scout Leaser Relationship Specialty Start Date End Date Aleksandra Aguiar [address] [place], [place] [phone] PCP - General 11/03/19 Goals (unrecognized section and content) Goals may be documented in a n alternate section FOR RECORDS PERTAINING TO PATIENTS WHO ARE OR HAVE BEEN ENROLLED IN A CHEMICAL DEPENDENCY/SUBSTANCEABUSE PROGRAM, SOME INFORMATION MAY BE OMITTED. This clinical summary was aggregated from multiple sources. Caution should be exercised in using it in the provision of clinical care. This summary normalizes information from multiple sources, and as a consequence, information in this document may materially change the coding, format and clinical context of patient data. In addition, data may be omitted in some cases. CLINICAL DECISIONS SHOULD BE BASED ON THE PRIMARY CLINICAL RECORDS. [facility] [employer] [facility] provides no warranty or guarantee of the accuracy or completeness of information in this document.
[2025-02-20 22:31] LABS: AST(SGOT) 23 U/L (<=31); Alanine Aminotransfer ALT/SGPT 19 U/L (<=34); Albumin, Serum 4.4 g/dL (3.4-4.8); Alkaline Phosphatase 41 U/L (35-104); Anion Gap 11 (5-15); BUN 21 mg/dL (4-19); BUN/Creat Ratio 21.8 RATIO (10-20); Calcium,Total 9.6 mg/dL (7.6-11.0); Carbon Dioxide 27.4 mmol/L (21.0-32.0); Chloride 100 mmol/L (98-108); Cholesterol 251 mg/dL (<=200); Globulin 2.9 g/dL (2.2-4.2); Glucose 101 mg/dL (70-99); Low Density Lipoprotein Calc. 153 mg/dL; Potassium 3.9 mmol/L (3.3-5.1); Triglycerides 105 mg/dL; Very Low Density Lipoprotein 21 mg/dL (5-40); cholesterol:hdl ratio screen 3.14
[2025-02-20 22:47] LABS: Hematocrit 36.1 % (37-47); Hemoglobin 12.2 g/dL (12.0-15.0); Immature Granulocytes Count 0.010 X10^3/uL (0.0-0.0); Mean Corp Hgb Conc 33.8 g/dL (32-36); Mean Corpuscular Volume 101.1 fL (81-99); Mean Platelet Vol. 10.1 fl (6.2-12.0); NRBC Flagged by Analyzer 0 % (0-5); Platelet Count 189 K/mm3 (150-450); RBC Distribution Width CV 12.6 % (11.6-14.6); RBC Distribution Width SD 47.1 fl (35.1-43.9); Red Blood Count 3.57 M/mm3 (4.2-5.4); White Blood Count 6.1 K/mm3 (4.4-11.0)
== END | disposition home or self-care (01) ==
LOC: LABSPEC 21:48
PROVIDERS: PCP Nurse Practitioner; Visit Provider Nurse Practitioner
DX: E03.9 Hypothyroidism, unspecified (principal); I10 Essential (primary) hypertension; F41.9 Anxiety disorder, unspecified; D64.9 Anemia, unspecified
CPT/HCPCS: 80053; 80061; 84443; 85025